=== PATIENT | female | born 1970 | race Caucasian/White ===

== ENCOUNTER 2018-01-07 21:09 | Emergency (ER) | payer SELFPAY, OTHER ==
[2018-01-07 21:59] LABS: BASO # 0.1 10^3/uL (0.0-0.2); BASO % 0.8 % (0.0-1.0); EOS # 0.1 10^3/uL (0.0-0.50); EOS % 0.5 % (0.0-3.0); HEMATOCRIT 36.7 % (36.0-47.0); IMMATURE GRANULOCYTE % 0.5 % (0-3.0); LYMPH % 28.1 % (24.0-44.0); MEAN CORPUSCULAR HEMOGLOBIN 31.5 pg (27.0-33.0); MEAN CORPUSCULAR HGB CONC 32.7 g/dl (32.0-36.5); MEAN CORPUSCULAR VOLUME 96.3 fl (80.0-96.0); MONO # 0.9 10^3/uL (0.0-0.8); MONO % 8.7 % (0.0-5.0); NEUTROPHILS # 6.6 10^3/uL (1.8-7.7); NEUTROPHILS % 61.4 % (36.0-66.0); PLATELET COUNT, AUTOMATED 326 10^3/uL (150-450); RED BLOOD COUNT 3.81 10^6/uL (4.00-5.40); RED CELL DISTRIBUTION WIDTH 12.6 % (11.5-14.5); WHITE BLOOD COUNT 10.8 10^3/uL (4.0-10.0)
[2018-01-07 22:12] LABS: ANION GAP 6 MEQ/L (8-16); BLOOD UREA NITROGEN 12 MG/DL (7-18); CALCIUM LEVEL 9.4 MG/DL (8.5-10.1); CARBON DIOXIDE LEVEL 29 MEQ/L (21-32); CHLORIDE LEVEL 107 MEQ/L (98-107); CK-MB VALUE MASS 48.8 NG/ML (<3.6); CPK CREATINE PHOSPHOKINASE 482 U/L (26-192); CREATININE FOR GFR 1.01 MG/DL (0.55-1.30); GLOMERULAR FILTRATION RATE > 60.0 (>58); GLUCOSE, FASTING 109 MG/DL (70-100); MB/CK RELATIVE INDEX 10.12 (< OR =4); POTASSIUM SERUM 3.6 MEQ/L (3.5-5.1); SODIUM LEVEL 142 MEQ/L (136-145)
[2018-01-07] MEDS: KETOROLAC 30 MG/ML VIAL (J1885) IV (22:15)
[2018-01-07 22:30] LABS: TROPONIN I 7.33 NG/ML (< 0.10)
[2018-01-07] MEDS: NITROGLYCERIN 0.4 MG SUBL TABLET SL (22:45)
[2018-01-07] MEDS ORDERED: HEPARIN 25,000 UNITS/250 ML D5W BAG (100 UNITS/ML) As Ordered (22:50)
[2018-01-07] MEDS: HEPARIN SOD (PORCINE) 5000 UNITS/ML VIAL IV (22:53)
[2018-01-07] MEDS: CLOPIDOGREL 300 MG TAB (PLAVIX) PO (22:53)
[2018-01-07] MEDS: HEPARIN DRIP 25,000 UNITS in APPROPRIATE DILUENT 1 EA IV (22:54)
[2018-01-07 23:03] LABS: INR 0.86; PROTHROMBIN TIME 11.8 SECONDS (12.4-14.5)
== END 2018-01-07 23:37 | disposition short-term general hospital (02) ==
LOC: M ED 21:09
DX: I21.4 Non-ST elevation (NSTEMI) myocardial infarction (principal); I10 Essential (primary) hypertension; I25.10 Atherosclerotic heart disease of native coronary artery without angina pectoris; E78.5 Hyperlipidemia, unspecified; Z95.5 Presence of coronary angioplasty implant and graft; Z82.49 Family history of ischemic heart disease and other diseases of the circulatory system; Z79.82 Long term (current) use of aspirin; Z79.890 Hormone replacement therapy; F17.210 Nicotine dependence, cigarettes, uncomplicated
CPT/HCPCS: J1885

== ENCOUNTER 2018-08-23 19:34 | Emergency (ER) | payer MEDICAID ==
[2018-08-23 20:56] LABS: BASO # 0.1 10^3/uL (0.0-0.2); EOS # 0.1 10^3/uL (0.0-0.50); EOS % 0.5 % (0.0-3.0); HEMATOCRIT 41.6 % (36.0-47.0); HEMOGLOBIN 13.4 g/dl (12.0-15.5); IMMATURE GRANULOCYTE % 0.5 % (0-3.0); LYMPH # 2.8 10^3/uL (1.5-4.5); LYMPH % 29.2 % (24.0-44.0); MEAN CORPUSCULAR HEMOGLOBIN 29.3 pg (27.0-33.0); MEAN CORPUSCULAR HGB CONC 32.2 g/dl (32.0-36.5); MEAN CORPUSCULAR VOLUME 90.8 fl (80.0-96.0); MONO # 0.8 10^3/uL (0.0-0.8); MONO % 7.9 % (0.0-5.0); NEUTROPHILS # 5.9 10^3/uL (1.8-7.7); NEUTROPHILS % 60.9 % (36.0-66.0); PLATELET COUNT, AUTOMATED 318 10^3/uL (150-450); RED BLOOD COUNT 4.58 10^6/uL (4.00-5.40); RED CELL DISTRIBUTION WIDTH 13.3 % (11.5-14.5); WHITE BLOOD COUNT 9.7 10^3/uL (4.0-10.0)
[2018-08-23 20:57] LABS: KETONE, URINE AUTO RFX NEGATIVE (NEGATIVE); MUCUS, URINE RFX SMALL (NEGATIVE); NITRITE, URINE AUTO RFX NEGATIVE (NEGATIVE); RBC, URINE AUTO RFX 2 /HPF (0-3); SQUAM EPITHELIAL CELL UR AURFX 4 /HPF (0-6)
[2018-08-23 20:58] LABS: LEUKOCYTE ESTERASE UR AUTO RFX TRACE (NEGATIVE); WBC, URINE AUTO RFX 14 /HPF (0-3)
[2018-08-23 21:22] LABS: ALBUMIN 3.8 GM/DL (3.2-5.2); ALKALINE PHOSPHATASE 158 U/L (45-117); ALT/SGPT 30 U/L (12-78); ANION GAP 5 MEQ/L (8-16); AST/SGOT 20 U/L (7-37); BILIRUBIN,DIRECT < 0.1 MG/DL (0.0-0.2); BILIRUBIN,TOTAL 0.3 MG/DL (0.2-1.0); BLOOD UREA NITROGEN 15 MG/DL (7-18); CALCIUM LEVEL 9.3 MG/DL (8.5-10.1); CARBON DIOXIDE LEVEL 28 MEQ/L (21-32); CHLORIDE LEVEL 106 MEQ/L (98-107); CREATININE FOR GFR 0.97 MG/DL (0.55-1.30); GLOMERULAR FILTRATION RATE > 60.0 (>58); GLUCOSE, FASTING 94 MG/DL (70-100); LIPASE 123 U/L (73-393); POTASSIUM SERUM 4.3 MEQ/L (3.5-5.1); SODIUM LEVEL 139 MEQ/L (136-145)
== END 2018-08-23 23:27 | disposition home or self-care (01) ==
LOC: M ED 19:34
DX: R10.12 Left upper quadrant pain (principal); R10.32 Left lower quadrant pain; N20.0 Calculus of kidney; N30.90 Cystitis, unspecified without hematuria; R11.0 Nausea; I10 Essential (primary) hypertension; E78.00 Pure hypercholesterolemia, unspecified; Z95.5 Presence of coronary angioplasty implant and graft; E03.9 Hypothyroidism, unspecified; Z79.899 Other long term (current) drug therapy; Z79.82 Long term (current) use of aspirin; Z79.02 Long term (current) use of antithrombotics/antiplatelets; F17.200 Nicotine dependence, unspecified, uncomplicated
CPT/HCPCS: 74176

== ENCOUNTER → 2018-11-17 | Outpatient (REF) | payer OTHER ==
[~2018-11-17] MED LIST: ASPI1TAB PO; ASPI325T25 PO; CIPR-249 PO; CLOP75TA2; LEVO175T2; LEVO75TA4 PO; LIPI20TA PO; LISI10TA4 PO; METO1TAB32; NITR4TASL SL; PROT1TAB2 PO; SIME40TA PO
[2018-11-17 13:41] LABS: HEMATOCRIT 38.9 % (36.0-47.0); HEMOGLOBIN 12.5 g/dl (12.0-15.5); MEAN CORPUSCULAR HEMOGLOBIN 29.9 pg (27.0-33.0); MEAN CORPUSCULAR HGB CONC 32.1 g/dl (32.0-36.5); MEAN CORPUSCULAR VOLUME 93.1 fl (80.0-96.0); PLATELET COUNT, AUTOMATED 245 10^3/uL (150-450); RED BLOOD COUNT 4.18 10^6/uL (4.00-5.40); WHITE BLOOD COUNT 6.2 10^3/uL (4.0-10.0)
[2018-11-17 14:09] LABS: ALBUMIN 3.5 GM/DL (3.2-5.2); ALT/SGPT 29 U/L (12-78); BILIRUBIN,TOTAL 0.2 MG/DL (0.2-1.0); BLOOD UREA NITROGEN 20 MG/DL (7-18); CALCIUM LEVEL 8.6 MG/DL (8.5-10.1); CARBON DIOXIDE LEVEL 23 MEQ/L (21-32); CHLORIDE LEVEL 111 MEQ/L (98-107); CHOLESTEROL LEVEL 183 MG/DL (<200); CHOLESTEROL RISK RATIO 5.903 (<5); CREATININE FOR GFR 0.86 MG/DL (0.55-1.30); GLOMERULAR FILTRATION RATE > 60.0 (>58); GLUCOSE, FASTING 95 MG/DL (70-100); HDL CHOLESTEROL 31 MG/DL (>40); LDL CHOLESTEROL 131 MG/DL (<100); NON-HDL-C 152 MG/DL; POTASSIUM SERUM 4.5 MEQ/L (3.5-5.1); SODIUM LEVEL 141 MEQ/L (136-145); TOTAL PROTEIN 7.3 GM/DL (6.4-8.2); TRIGLYCERIDES LEVEL 107 MG/DL (<150)
== END ==
LOC: M LABDRAW1 12:35
PROVIDERS: ATTEND Physician Assistant
DX: I25.10 Atherosclerotic heart disease of native coronary artery without angina pectoris (principal)

== ENCOUNTER 2019-01-31 14:22 | Emergency (ER) | payer OTHER, SELFPAY ==
[~2019-01-31] VITALS: Ht 170.2 cm; Wt 123.7 kg
[~2019-01-31 14:22] MED LIST changes: +ASPI-255 PO; -ASPI1TAB PO; -ASPI325T25 PO; +ASPI81TA26 PO
[2019-01-31 14:23] VITALS: BP 149/96
[2019-01-31] MEDS ORDERED: ATOR80TA59 (14:32)
[2019-01-31] MEDS ORDERED: IBUP-1022 PO (15:08)
[2019-01-31] MEDS ORDERED: CYCL10TA PO (15:08)
--- NOTE | 2019-01-31 20:36 | ECGEPIP ---
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
== END 2019-01-31 15:20 | disposition home or self-care (01) ==
LOC: M ED 14:22
DX: M54.12 Radiculopathy, cervical region (principal); I10 Essential (primary) hypertension; E07.9 Disorder of thyroid, unspecified; E78.5 Hyperlipidemia, unspecified; Z79.899 Other long term (current) drug therapy; Z79.890 Hormone replacement therapy; F17.210 Nicotine dependence, cigarettes, uncomplicated

== ENCOUNTER 2019-02-05 20:58 | Emergency (ER) | payer MEDICAID, SELFPAY ==
[~2019-02-05] VITALS: Ht 170.2 cm; Wt 109.1 kg
[~2019-02-05 20:58] MED LIST changes: +ATOR80TA59; +CYCL10TA PO; +IBUP-1022 PO
[2019-02-05] MEDS ORDERED: ROBA500T PO (22:44)
[2019-02-05 22:50] VITALS: BP 154/96
== END 2019-02-05 22:59 | disposition home or self-care (01) ==
LOC: M ED 20:58
DX: M62.830 Muscle spasm of back (principal)

== ENCOUNTER → 2019-02-08 | Outpatient (REF) | payer MEDICAID ==
[~2019-02-08] MED LIST changes: +ROBA500T PO
[2019-02-08 19:37] LABS: ALBUMIN 3.8 GM/DL (3.2-5.2); BILIRUBIN,TOTAL 0.5 MG/DL (0.2-1.0); CALCIUM LEVEL 8.5 MG/DL (8.5-10.1); CREATININE FOR GFR 1.35 MG/DL (0.55-1.30); FREE T4 0.15 NG/DL (0.76-1.46); GLOMERULAR FILTRATION RATE 44.9 (>58); POTASSIUM SERUM 3.7 MEQ/L (3.5-5.1); THYROID STIMULATING HORMONE 98.3 uIU/ML (0.358-3.740); TOTAL PROTEIN 7.9 GM/DL (6.4-8.2)
== END ==
LOC: M LAB REF 18:41
PROVIDERS: ATTEND Family Medicine Addiction Medicine
DX: R74.8 Abnormal levels of other serum enzymes (principal); E03.9 Hypothyroidism, unspecified

== ENCOUNTER 2019-02-22 10:07 | Outpatient (RCR) | payer MEDICAID | END 2019-02-23 | LOC: M PT 10:07 | PROVIDERS: ATTEND Physician Assistant | DX: M25.552 Pain in left hip (principal) ==

== ENCOUNTER 2019-03-02 17:07 | Emergency (ER) | payer MEDICAID ==
[~2019-03-02] VITALS: Ht 170.2 cm; Wt 120.2 kg
[2019-03-02] MEDS ORDERED: MELO15TA28 (17:24)
[2019-03-02] MEDS ORDERED: FUROSEMIDE 20 MG/2 ML VIAL (J1940) IV ONE (19:00)
[2019-03-02 19:06] LABS: BASO # 0.1 10^3/uL (0.0-0.2); BASO % 0.9 % (0.0-1.0); EOS # 0.1 10^3/uL (0.0-0.50); EOS % 0.7 % (0.0-3.0); HEMATOCRIT 36.5 % (36.0-47.0); LYMPH # 2.5 10^3/uL (1.5-4.5); LYMPH % 26.1 % (24.0-44.0); MEAN CORPUSCULAR HEMOGLOBIN 31.4 pg (27.0-33.0); MEAN CORPUSCULAR HGB CONC 32.9 g/dl (32.0-36.5); MEAN CORPUSCULAR VOLUME 95.5 fl (80.0-96.0); MONO # 0.9 10^3/uL (0.0-0.8); MONO % 8.9 % (0.0-5.0); NEUTROPHILS % 62.9 % (36.0-66.0); PLATELET COUNT, AUTOMATED 241 10^3/uL (150-450); RED BLOOD COUNT 3.82 10^6/uL (4.00-5.40); VENOUS BASE EXCESS 0.2 (-2.0-2.0); VENOUS HCO3 24.8 MEQ/L (23.0-27.0); VENOUS O2 SATURATION 96.5 % (60.0-80.0); VENOUS PARTIAL PRESSURE CO2 40.1 mmHg (38.0-50.0); VENOUS PARTIAL PRESSURE O2 88.6 mmHg (30.0-50.0); VENOUS PH 7.409 UNITS (7.330-7.430); VENOUS STANDARD HCO3 24.6 MEQ/L; WHITE BLOOD COUNT 9.6 10^3/uL (4.0-10.0)
--- NOTE | 2019-03-02 19:23 | REP ---
Chest one-view HISTORY: Cough Comparison: 12/28/2017 The lungs are clear. The heart is normal in size. The pulmonary vasculature is normal in appearance. Impression: No acute disease. Electronically Signed by Bj Fernandez MD 03/02/2019 07:14 P
[2019-03-02 19:35] LABS: INR 1.01; PROTHROMBIN TIME 13.4 SECONDS (12.1-14.4)
[2019-03-02 20:19] LABS: ALBUMIN 3.8 GM/DL (3.2-5.2); ALT/SGPT 31 U/L (12-78); BILIRUBIN,DIRECT < 0.1 MG/DL (0.0-0.2); BILIRUBIN,TOTAL 0.4 MG/DL (0.2-1.0); BLOOD UREA NITROGEN 21 MG/DL (7-18); CALCIUM LEVEL 8.8 MG/DL (8.5-10.1); CARBON DIOXIDE LEVEL 25 MEQ/L (21-32); CHLORIDE LEVEL 108 MEQ/L (98-107); CK-MB VALUE MASS 2.5 NG/ML (<3.6); CPK CREATINE PHOSPHOKINASE 208 U/L (26-192); GLOMERULAR FILTRATION RATE > 60.0 (>58); GLUCOSE, FASTING 83 MG/DL (70-100); NT-PRO BNP 87 PG/ML (<125); POTASSIUM SERUM 4.4 MEQ/L (3.5-5.1); SODIUM LEVEL 140 MEQ/L (136-145); TOTAL PROTEIN 8.3 GM/DL (6.4-8.2); TROPONIN I < 0.02 NG/ML (< 0.10)
[2019-03-02] MEDS ORDERED: PROAAER10 INH (21:06)
[2019-03-02 21:53] VITALS: BP 135/84
--- NOTE | 2019-03-03 09:08 | ECGEPIP ---
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
== END 2019-03-02 21:55 | disposition home or self-care (01) ==
LOC: M ED 17:07
DX: R60.0 Localized edema (principal); R06.02 Shortness of breath; I10 Essential (primary) hypertension; Z79.899 Other long term (current) drug therapy; Z79.82 Long term (current) use of aspirin
CPT/HCPCS: 71045; 80048; 80076; 82550; 82553; 82803; 83605; 83880; 84443; 85025; 85610; 87040; 93005; 93041; 96374; 99284; J1940

== ENCOUNTER 2019-03-21 07:43 | Outpatient (RCR) | payer MEDICAID ==
[~2019-03-21 07:43] MED LIST changes: +MELO15TA28; +PROAAER10 INH
== END 2019-03-25 ==
LOC: M PT 07:43
PROVIDERS: ATTEND Physician Assistant
DX: M25.552 Pain in left hip (principal)

== ENCOUNTER 2019-04-24 07:00 | Outpatient (RCR) | payer MEDICAID, OTHER | END 2019-04-25 | LOC: M PT 07:00 | PROVIDERS: ATTEND Physician Assistant | DX: Z47.89 Encounter for other orthopedic aftercare (principal); M54.2 Cervicalgia; M25.552 Pain in left hip; M53.3 Sacrococcygeal disorders, not elsewhere classified ==

== ENCOUNTER → 2019-05-22 | Outpatient (REF) | payer OTHER ==
[2019-05-22 18:03] LABS: FREE T4 1.7 NG/DL (0.76-1.46); THYROID STIMULATING HORMONE 0.232 uIU/ML (0.358-3.740)
== END ==
LOC: M LAB REF 17:06
PROVIDERS: ATTEND Nurse Practitioner Family
DX: E03.9 Hypothyroidism, unspecified (principal)

== ENCOUNTER → 2019-05-29 | Outpatient (REF) | payer OTHER ==
[2019-05-29 13:52] LABS: BLOOD UREA NITROGEN 20 MG/DL (7-18); CALCIUM LEVEL 8.9 MG/DL (8.5-10.1); CARBON DIOXIDE LEVEL 25 MEQ/L (21-32); CHLORIDE LEVEL 110 MEQ/L (98-107); CREATININE FOR GFR 0.77 MG/DL (0.55-1.30); GLOMERULAR FILTRATION RATE > 60.0 (>58); GLUCOSE, FASTING 79 MG/DL (70-100); POTASSIUM SERUM 4.3 MEQ/L (3.5-5.1); SODIUM LEVEL 140 MEQ/L (136-145)
== END ==
LOC: M LABDRAW1 12:06
PROVIDERS: ATTEND Physician Assistant
DX: I10 Essential (primary) hypertension (principal)

== ENCOUNTER → 2019-06-25 | Outpatient (REF) | payer OTHER, MEDICAID ==
[2019-06-25 13:26] LABS: ALBUMIN 3.4 GM/DL (3.2-5.2); ALT/SGPT 33 U/L (12-78); BILIRUBIN,TOTAL 0.3 MG/DL (0.2-1.0); BLOOD UREA NITROGEN 17 MG/DL (7-18); CALCIUM LEVEL 8.7 MG/DL (8.5-10.1); CARBON DIOXIDE LEVEL 25 MEQ/L (21-32); CHLORIDE LEVEL 111 MEQ/L (98-107); CHOLESTEROL LEVEL 140 MG/DL (<200); CHOLESTEROL RISK RATIO 4.242 (<5); CREATININE FOR GFR 0.79 MG/DL (0.55-1.30); FREE T4 1.25 NG/DL (0.76-1.46); GLOMERULAR FILTRATION RATE > 60.0 (>58); GLUCOSE, FASTING 95 MG/DL (70-100); HDL CHOLESTEROL 33 MG/DL (>40); LDL CHOLESTEROL 74 MG/DL (<100); NON-HDL-C 107 MG/DL; POTASSIUM SERUM 4.2 MEQ/L (3.5-5.1); SODIUM LEVEL 143 MEQ/L (136-145); THYROID STIMULATING HORMONE 0.075 uIU/ML (0.358-3.740); TOTAL PROTEIN 7.4 GM/DL (6.4-8.2); TRIGLYCERIDES LEVEL 163 MG/DL (<150)
[2019-06-25 14:19] LABS: HEMOGLOBIN A1c 5.4 %
== END ==
LOC: M LAB REF 12:31
PROVIDERS: ATTEND Nurse Practitioner Family
DX: Z00.01 Encounter for general adult medical examination with abnormal findings (principal)

== ENCOUNTER → 2019-10-09 | Outpatient (CLI) | payer OTHER ==
--- NOTE | 2019-10-09 13:20 | REPMRS ---
Patient History The patient states she had a clinical breast exam in September 2019. Family history of lymphoma in mother. Taking unspecified hormones for 12 years. Digital Mammo Screening Bilat: October 09, 2019 - Exam #: [id number] Bilateral CC and MLO view(s) were taken. Technologist: Jeanette Pineda, Technologist No prior studies available for comparison. FINDINGS: There are scattered fibroglandular densities. There is no evidence of dominant mass, architectural distortion, or grouped microcalcification typical of malignancy. 3-D tomosynthesis shows no additional findings. Assessment: BI-RADS/ACR category 1 mammogram. Negative Mammogram. Recommendation Routine screening mammogram of both breasts in 1 year (for women over age 40). This patient's Lifetime Breast Cancer RIsk is estimated at 8.3 %. This mammogram was interpreted with the aid of an FDA-approved computer-aided dectection system. Electronically Signed By: Serafin Pritchard MD 10/09/19 [id number]
== END ==
LOC: M RAD 12:34
PROVIDERS: ATTEND Physician Assistant
DX: Z12.31 Encounter for screening mammogram for malignant neoplasm of breast (principal)

== ENCOUNTER → 2019-11-12 | Outpatient (REF) | payer OTHER, MEDICAID ==
[2019-11-12 14:34] LABS: FREE T4 1.61 NG/DL (0.76-1.46); THYROID STIMULATING HORMONE 0.276 uIU/ML (0.358-3.740)
== END ==
LOC: M LAB REF 13:22
PROVIDERS: ATTEND Physician Assistant
DX: E03.9 Hypothyroidism, unspecified (principal)

== ENCOUNTER → 2019-11-20 | Outpatient (REF) | payer OTHER, MEDICAID ==
[2019-11-20 10:10] LABS: HEMATOCRIT 35.9 % (36.0-47.0); HEMOGLOBIN 11.6 g/dl (12.0-15.5); MEAN CORPUSCULAR HEMOGLOBIN 30.1 pg (27.0-33.0); MEAN CORPUSCULAR HGB CONC 32.3 g/dl (32.0-36.5); PLATELET COUNT, AUTOMATED 266 10^3/uL (150-450); RED BLOOD COUNT 3.86 10^6/uL (4.00-5.40)
[2019-11-20 10:43] LABS: BLOOD UREA NITROGEN 18 MG/DL (7-18); CALCIUM LEVEL 8.6 MG/DL (8.5-10.1); CARBON DIOXIDE LEVEL 24 MEQ/L (21-32); CHLORIDE LEVEL 111 MEQ/L (98-107); CHOLESTEROL LEVEL 194 MG/DL (<200); CHOLESTEROL RISK RATIO 7.185 (<5); CREATININE FOR GFR 0.72 MG/DL (0.55-1.30); GLOMERULAR FILTRATION RATE > 60.0 (>58); GLUCOSE, FASTING 100 MG/DL (70-100); HDL CHOLESTEROL 27 MG/DL (>40); LDL CHOLESTEROL 125 MG/DL (<100); NON-HDL-C 167 MG/DL; POTASSIUM SERUM 4.2 MEQ/L (3.5-5.1); SODIUM LEVEL 141 MEQ/L (136-145); TRIGLYCERIDES LEVEL 210 MG/DL (<150)
== END ==
LOC: M LABDRAW1 07:34
PROVIDERS: ATTEND Physician Assistant
DX: I25.10 Atherosclerotic heart disease of native coronary artery without angina pectoris (principal)

== ENCOUNTER → 2020-02-20 | Outpatient (REF) | payer OTHER, MEDICAID ==
[~2020-02-20] MED LIST changes: +CYCL-707 PO; -CYCL10TA PO
[2020-02-20 13:21] LABS: FREE T4 1.29 NG/DL (0.76-1.46); THYROID STIMULATING HORMONE 0.038 uIU/ML (0.358-3.740)
== END ==
LOC: M LAB REF 12:21
PROVIDERS: ATTEND Physician Assistant
DX: E03.9 Hypothyroidism, unspecified (principal)

== ENCOUNTER → 2020-06-23 | Outpatient (REF) | payer OTHER, MEDICAID ==
[2020-06-23 13:26] LABS: FREE T4 1.13 NG/DL (0.76-1.46); THYROID STIMULATING HORMONE 0.5 uIU/ML (0.358-3.740)
== END ==
LOC: M LAB REF 12:15
PROVIDERS: ATTEND Physician Assistant
DX: E03.9 Hypothyroidism, unspecified (principal)

== ENCOUNTER → 2021-01-14 | Outpatient (REF) | payer OTHER, MEDICAID ==
[~2021-01-14] MED LIST changes: +LISI10TA22 PO; -LISI10TA4 PO; -SIME40TA PO; +SIME80CH6 PO
[2021-01-14 12:24] LABS: BASO # 0.1 10^3/uL (0.0-0.2); BASO % 1.5 % (0.0-1.0); EOS # 0.1 10^3/uL (0.0-0.5); EOS % 0.9 % (0.0-3.0); HEMATOCRIT 38.8 % (36.0-47.0); HEMOGLOBIN 12.3 g/dl (12.0-15.5); MEAN CORPUSCULAR HEMOGLOBIN 28.9 pg (27.0-33.0); MEAN CORPUSCULAR HGB CONC 31.7 g/dl (32.0-36.5); MEAN CORPUSCULAR VOLUME 91.1 fl (80.0-96.0); MONO # 0.7 10^3/uL (0.0-0.8); MONO % 7.8 % (2.0-8.0); NEUTROPHILS # 5.8 10^3/uL (1.5-8.5); NEUTROPHILS % 65.8 % (36.0-66.0); PLATELET COUNT, AUTOMATED 237 10^3/uL (150-450); RED BLOOD COUNT 4.26 10^6/uL (4.00-5.40); WHITE BLOOD COUNT 8.7 10^3/uL (4.0-10.0)
[2021-01-14 12:29] LABS: APPEARANCE, URINE HAZY (CLEAR); BACTERIA, URINE AUTO NEGATIVE (NEGATIVE); BILIRUBIN, URINE AUTO NEGATIVE (NEGATIVE); BLOOD, URINE BLOOD NEGATIVE (NEGATIVE); COLOR, URINE YELLOW (YELLOW); GLUCOSE, URINE (UA) AUTO NEGATIVE (NEGATIVE); KETONE, URINE AUTO NEGATIVE (NEGATIVE); LEUKOCYTE ESTERASE, URINE AUTO NEGATIVE (NEGATIVE); NITRITE, URINE AUTO NEGATIVE (NEGATIVE); PROTEIN, URINE AUTO NEGATIVE (NEGATIVE); RBC, URINE AUTO 0 /HPF (0-3); SQUAMOUS EPITHELIAL CELL UR AU 6 /HPF (0-6); UROBILINOGEN, URINE AUTO 0.2 mg/dL (0.0-2.0); WBC, URINE AUTO 1 /HPF (0-3)
[2021-01-14 13:03] LABS: ALBUMIN 3.7 GM/DL (3.2-5.2); ALT/SGPT 37 U/L (12-78); BILIRUBIN,TOTAL 0.3 MG/DL (0.2-1.0); BLOOD UREA NITROGEN 16 MG/DL (7-18); CALCIUM LEVEL 9.3 MG/DL (8.5-10.1); CARBON DIOXIDE LEVEL 27 MEQ/L (21-32); CHLORIDE LEVEL 106 MEQ/L (98-107); CHOLESTEROL LEVEL 312 MG/DL (<200); CHOLESTEROL RISK RATIO 9.176 (<5); CREATININE FOR GFR 0.95 MG/DL (0.55-1.30); FREE T4 0.52 NG/DL (0.76-1.46); GLOMERULAR FILTRATION RATE > 60.0 (>58); GLUCOSE, FASTING 92 MG/DL (70-100); HDL CHOLESTEROL 34 MG/DL (>40); LDL CHOLESTEROL 221 MG/DL (<100); NON-HDL-C 278 MG/DL; POTASSIUM SERUM 4.1 MEQ/L (3.5-5.1); SODIUM LEVEL 140 MEQ/L (136-145); TOTAL 25(OH) VITAMIN D 15.4 NG/ML (30.0-100.0); TOTAL PROTEIN 7.6 GM/DL (6.4-8.2); TRIGLYCERIDES LEVEL 285 MG/DL (<150)
[2021-01-14 14:02] LABS: HEMOGLOBIN A1c 5.8 %
== END ==
LOC: M LAB REF 11:24
PROVIDERS: ATTEND Nurse Practitioner Family
DX: R10.9 Unspecified abdominal pain (principal); R19.7 Diarrhea, unspecified; R11.2 Nausea with vomiting, unspecified; R14.0 Abdominal distension (gaseous)

== ENCOUNTER → 2021-02-11 | Outpatient (CLI) | payer OTHER ==
--- NOTE | 2021-02-11 09:39 | REP ---
INDICATION: ABD PAIN DISTENTION NAUSEA VOMITING DIARRHEA COMPARISON: CT dated 08/23/2018 TECHNIQUE: Real time B-mode montiel scale ultrasound examination using curved array transducer. FINDINGS: Liver, spleen, and pancreas are normal in contour, size, echogenicity, and overall appearance. No focal hepatic, splenic or pancreatic lesions are identified. Gallbladder is normal without gallstones, wall thickening, or pericholecystic fluid. No biliary ductal dilatation is appreciated and the common bile duct measures 3.5 mm diameter. The bilateral kidneys are normal in reniform shape without hydronephrosis or obvious abnormality. Right kidney measures 10.2 x 4.7 x 4.3 cm. Left kidney measures 11.7 x 4.7 x 5.3 cm. Abdominal aorta is normal and measures 2.1 cm maximal diameter. No obvious ascites. IMPRESSION: No obvious abnormality appreciated. Limited by body habitus and associated technical factors. If symptoms persist consider CT of the abdomen and pelvis for further investigation. <Electronically signed by Dread Lopez > 02/11/21 0935
== END ==
LOC: M RAD 08:59
PROVIDERS: ATTEND Nurse Practitioner Family
DX: R14.0 Abdominal distension (gaseous) (principal); R19.7 Diarrhea, unspecified; R11.2 Nausea with vomiting, unspecified; R10.9 Unspecified abdominal pain

== ENCOUNTER → 2021-03-03 | Outpatient (REF) | payer OTHER ==
[2021-03-03 16:46] LABS: BASO # 0.1 10^3/uL (0.0-0.2); BASO % 1.1 % (0.0-1.0); EOS % 0.6 % (0.0-3.0); HEMATOCRIT 39.9 % (36.0-47.0); HEMOGLOBIN 12.5 g/dl (12.0-15.5); LYMPH % 27.5 % (24.0-44.0); MEAN CORPUSCULAR HEMOGLOBIN 28.6 pg (27.0-33.0); MEAN CORPUSCULAR HGB CONC 31.3 g/dl (32.0-36.5); MEAN CORPUSCULAR VOLUME 91.3 fl (80.0-96.0); MONO # 0.6 10^3/uL (0.0-0.8); MONO % 8.3 % (2.0-8.0); NEUTROPHILS # 4.5 10^3/uL (1.5-8.5); NEUTROPHILS % 61.9 % (36.0-66.0); PLATELET COUNT, AUTOMATED 288 10^3/uL (150-450); RED BLOOD COUNT 4.37 10^6/uL (4.00-5.40); WHITE BLOOD COUNT 7.2 10^3/uL (4.0-10.0)
[2021-03-03 17:39] LABS: ALBUMIN 3.6 GM/DL (3.2-5.2); ALT/SGPT 36 U/L (12-78); BILIRUBIN,TOTAL 0.3 MG/DL (0.2-1.0); BLOOD UREA NITROGEN 12 MG/DL (7-18); CALCIUM LEVEL 9.3 MG/DL (8.5-10.1); CARBON DIOXIDE LEVEL 27 MEQ/L (21-32); CHLORIDE LEVEL 106 MEQ/L (98-107); CHOLESTEROL LEVEL 231 MG/DL (<200); CHOLESTEROL RISK RATIO 7.451 (<5); CREATININE FOR GFR 0.74 MG/DL (0.55-1.30); FREE T4 1.27 NG/DL (0.76-1.46); GLOMERULAR FILTRATION RATE > 60.0 (>58); GLUCOSE, FASTING 79 MG/DL (70-100); HDL CHOLESTEROL 31 MG/DL (>40); LDL CHOLESTEROL 137 MG/DL (<100); NON-HDL-C 200 MG/DL; POTASSIUM SERUM 4.7 MEQ/L (3.5-5.1); SODIUM LEVEL 141 MEQ/L (136-145); THYROID PEROXIDASE ANTIBODY 507.7 U/ML (<60.0); THYROID STIMULATING HORMONE 0.562 uIU/ML (0.358-3.740); TOTAL PROTEIN 7.6 GM/DL (6.4-8.2); TOTAL T3 144.6 NG/DL (60.0-181.0); TRIGLYCERIDES LEVEL 314 MG/DL (<150)
== END ==
LOC: M LAB REF 16:16
PROVIDERS: ATTEND Nurse Practitioner Family
DX: E03.9 Hypothyroidism, unspecified (principal); E78.2 Mixed hyperlipidemia

== ENCOUNTER → 2021-03-11 | Outpatient (REF) | payer OTHER | LOC: M LAB REF 16:29 | PROVIDERS: ATTEND Nurse Practitioner Family | DX: Z12.4 Encounter for screening for malignant neoplasm of cervix (principal) ==

== ENCOUNTER → 2021-04-01 | Outpatient (CLI) | payer OTHER ==
[~2021-04-01] MED LIST changes: +GABA600T4 PO; +SERT-141 PO
== END ==
LOC: M PLALAB 10:20
PROVIDERS: ATTEND Internal Medicine Gastroenterology
DX: R19.7 Diarrhea, unspecified (principal)

== ENCOUNTER → 2021-04-06 | Outpatient (CLI) | payer OTHER ==
[~2021-04-06] MED LIST changes: +GASTROGRAFIN SOLUTION 30ML (Q9963) As Ordered ONE; +ISOVUE-370 76% 100ML VIAL As Ordered ONE
== END ==
LOC: M RAD 14:53
PROVIDERS: ATTEND Internal Medicine Gastroenterology
DX: K57.30 Diverticulosis of large intestine without perforation or abscess without bleeding (principal)
CPT/HCPCS: 74177; Q9963; Q9967

== ENCOUNTER → 2021-04-30 | Outpatient (CLI) | payer OTHER ==
[~2021-04-30] MED LIST changes: -GABA600T4 PO; -GASTROGRAFIN SOLUTION 30ML (Q9963) As Ordered ONE; -ISOVUE-370 76% 100ML VIAL As Ordered ONE; -SERT-141 PO
[2021-04-30 18:14] LABS: BASO # 0.1 10^3/uL (0.0-0.2); BASO % 0.8 % (0.0-1.0); EOS % 0.5 % (0.0-3.0); HEMATOCRIT 39.8 % (36.0-47.0); HEMOGLOBIN 12.6 g/dl (12.0-15.5); LYMPH # 2.2 10^3/uL (1.5-5.0); LYMPH % 24.6 % (24.0-44.0); MEAN CORPUSCULAR HEMOGLOBIN 28.8 pg (27.0-33.0); MEAN CORPUSCULAR HGB CONC 31.7 g/dl (32.0-36.5); MEAN CORPUSCULAR VOLUME 90.9 fl (80.0-96.0); MONO # 0.8 10^3/uL (0.0-0.8); MONO % 8.7 % (2.0-8.0); NEUTROPHILS # 5.7 10^3/uL (1.5-8.5); NEUTROPHILS % 65.1 % (36.0-66.0); PLATELET COUNT, AUTOMATED 283 10^3/uL (150-450); RED BLOOD COUNT 4.38 10^6/uL (4.00-5.40); WHITE BLOOD COUNT 8.8 10^3/uL (4.0-10.0)
[2021-04-30 18:24] LABS: INR 0.91; PROTHROMBIN TIME 12.7 SECONDS (12.7-14.5)
[2021-04-30 18:41] LABS: ALBUMIN 3.5 GM/DL (3.2-5.2); ALT/SGPT 34 U/L (12-78); BILIRUBIN,DIRECT < 0.1 MG/DL (0.0-0.2); BILIRUBIN,TOTAL 0.3 MG/DL (0.2-1.0); IRON (FE) 50 UG/DL (50-170); PERCENT SATURATION 13.9 % (13.2-45.0); TOTAL IRON BINDING CAPACITY 360 UG/DL (250-450); TOTAL PROTEIN 7.4 GM/DL (6.4-8.2)
[2021-04-30 19:04] LABS: HEPATITIS B SURFACE ANTIGEN NEGATIVE (NEGATIVE)
[2021-04-30 19:30] LABS: HEPATITIS C VIRUS ABY INDEX 0.2 INDEX (<0.8)
[2021-04-30 19:31] LABS: HEPATITIS B CORE ANTIBODY IGM NEGATIVE (NEGATIVE)
[2021-04-30 19:33] LABS: HEPATITIS A ANTIBODY IGM NEGATIVE (NEGATIVE)
== END ==
LOC: M LAB 16:38
PROVIDERS: ATTEND Internal Medicine Gastroenterology
DX: R93.3 Abnormal findings on diagnostic imaging of other parts of digestive tract (principal); K74.60 Unspecified cirrhosis of liver

== ENCOUNTER → 2021-06-16 | Outpatient (REF) | payer OTHER | LOC: M SFHCWAGY 19:06 | PROVIDERS: ATTEND Obstetrics & Gynecology | DX: N85.2 Hypertrophy of uterus (principal) ==

== ENCOUNTER → 2021-07-08 | Outpatient (CLI) | payer OTHER | LOC: M LABSMTC 11:17 | PROVIDERS: ATTEND Anesthesiology | DX: Z01.818 Encounter for other preprocedural examination (principal); Z11.52 Encounter for screening for COVID-19 ==

== ENCOUNTER → 2021-07-10 | Outpatient (CLI) | payer OTHER ==
[~2021-07-10] MED LIST changes: +GABA600T4 PO; +SERT-141 PO
--- NOTE | 2021-07-10 12:23 | REP ---
INDICATION: ENLARGED UTERUS. COMPARISON: None. TECHNIQUE: Transvaginal and transvesical imaging FINDINGS: The uterus measures 9.3 x 5.7 x 6.5 cm. The uterine parenchyma is heterogenous and echo pattern. In the uterine body on the right there is a hypoechoic nodule which measures 2.5 cm. Within the endometrial cavity there appears to be an 8 mm size nodule. The maximal thickness of the endometrial echo complex is 8 mm. The right ovary measures 3 x 1.6 x 2.3 cm and is within normal limits with an RI 0.56 Left ovary measures 1.7 x 1.7 x 1.2 cm and is within normal limits with an RI 0.65 Urinary bladder measures 8 x 6 x 9 cm. IMPRESSION: 1. Heterogenous uterine echo pattern with evidence of fibroid change as described above. 2. Possible polyp in the endometrial cavity. Follow-up is recommended. Consider pelvic MRI if clinically relevant. <Electronically signed by Chito Barrett > 07/10/21 [id number]
== END ==
LOC: M WHC 11:34
PROVIDERS: ATTEND Obstetrics & Gynecology
DX: N88.2 Stricture and stenosis of cervix uteri (principal)

== ENCOUNTER 2021-07-13 11:34 | Day surgery (SDC) | payer OTHER ==
[~2021-07-13] VITALS: Ht 172.7 cm; Wt 112.5 kg
[~2021-07-13 11:34] MED LIST changes: -GABA600T4 PO; +NS 1,000 ML IV ONE; -SERT-141 PO
--- OUTSIDE RECORDS SUMMARY | 2021-07-13 11:38 | CCD ---
Author Author [facility] Organization [facility] Address Unknown Phone Unavailable Care Team Providers Care Piper Installer Name Role Phone Rakel Burgos Unavailable PROBLEMS Type Condition ICD9-CM Code [id number] Code Onset Dates Condition S tatus W/U Status Risk SNOMED Code Notes Problem Abnormal uterine and vaginal bleeding, unspecified N93.9 Active confirmed [id number] ALLERGIES No Known Allergies ENCOUNTERS from 1970 to 2021-07-01 Encounter Location Date Provider Diagnosis [facility] [address] [place] [address] [place] [address] May, Rakel Burgos Enlarged uterus N85. 2 and Abnormal uterine and vaginal bleeding, unspecified N93.9 IMMUNIZATIONS No Information SOCIAL HISTORY Tobacco Use: Social History Observation Description Date Details (start date - stop date) Former Smoker Sex Assigned At : Social History Observation Description Sex Assigned At Unknown Tobacco Use: Question Answer Notes Are you a: former smoker How long has it been since you last smoked? 1-5 years Smoker for 20 years REASON FOR REFERRAL No Information VITAL SIGNS Weight 256.8 lbs May, Weight-kg 116.48 kg May, Height 67 in May, BMI 40.22 kg/m2 May, Blood pressure systolic 118 mm Hg May, Blood pressure diastolic 76 mm Hg May, MEDICATIONS Medication SIG (Take, Route, Frequency, Duration) Notes Start Da te End Date Status Dicyclomine HCl 10 MG 1-2 capsules Orally every 6 hours as needed for abdominal cramping Active Aspirin Adult Low Dose 81 MG 1 tablet Orally Once a day Active Levothyroxine Sodium 150 MCG 1 tablet in the morning o n an empty stomach Orally Once a day Active Sertraline HCl 100 MG 1 tablet Orally Once a day Active Atorvastatin Calcium 40 MG 1 tablet Orally Once a day Active Gabapentin 600 MG 1 tablet Orally Three times a day Active PROCEDURES No Information RESULTS Component Value Reference Range Pathology Request For Service Reviewed date:06/19/2021 13:08:33 Interpretation: Performing Lab:Formerly [facility], [facility], [facility] [address] [facility] [id number] , ,[place] [id number] GENITOURINARY REASON FOR VISIT ENLARGED UTERUS MEDICAL (GENERAL) HISTORY Type Description Date Medical History Hypothyroidism Medical History Mixed hyperlipidemia/High Cholesterol Medical History Secondary Hypertension Medical History Atherosclerosis/Coronary Art juan Disease, following with Dr. Costa Medical History Depressive Disorder Medical History Generalized Anxiety Disorder Medical History Obesity Medical History 2 Myocardial Infarctions Medical History Severe LAD stenosis requiring stent plac ement Medical History Prediabetes Medical History Arthritis Medical History Kidney Stones Surgical History Surgical History Right Shoulder 2009 Surgical History Tubal Ligation Surgical History Teeth Extraction Surgical History Stent placement/cardiac catheter [facility] 04/2015 Hospitalization History child Goals Section No Information Health Concerns No Information MEDICAL EQUIPMENT No Information MENTAL STATUS No Information FUNCTIONAL STATUS No Information ASSESSMENTS Encounter Date Diagnosis Assessment Notes Treatment Notes Treatm ent Clinical Notes May, Enlarged uterus (ICD-10 - N85.2) May, Abnormal uterine and vaginal bleeding, unspecified (ICD-10 - N93.9) PLAN OF TREATMENT Treatment Notes Test Name Order Date [facility] NON-OB COMPLETE 2021-06-16 Next Appt Details 3-4 weeks Reason:f/u biopsy and ultrasou nd Provider Name:Rakel Burgos, 2021-06-26 9 02:40:00 PM, [address] [facility], , [place], [address], Follow Up:3-4 weeksf/u biopsy and ultrasound Insurance Providers Payer Name Payer Address Payer Phone Insured Name Patient Relati onship to Insured Coverage Start Date Coverage End Date SELF PAY LESLIE STEWART self
--- OUTSIDE RECORDS SUMMARY | 2021-07-13 11:38 | CCD ---
Author Organization Unknown Address [address] [place] [id number] Phone [phone] Care Team Providers Care Piping Manager Name Role Phone Ree Arteaga Unavailable Unavailable Allergies Code Code System Name Reaction Severity Status Onset NKDA Medications Name Status Start Date Stop Date amoxicillin 500 mg capsule TAKE ONE CAPSULE BY MOUTH THREE TIMES A DAY Completed 01/07/2021 atorvastatin 40 mg tablet TAKE ONE TABLET BY MOUTH ONCE DAILY Active Not available atorvastatin 80 mg tablet Completed 2020 chlorhexidine gluconate 0.12 % mouthwash Completed 01/07/2021 clindamycin HCl 300 mg capsule TAKE ONE CAPSULE BY MOUTH THREE TIMES A DAY FOR 10 DAYS Completed 01/07/2021 clopidogrel 75 mg tablet TAKE ONE TABLET BY MOUTH EVERY DAY Completed 12/25 dicyclomine 10 mg capsule TAKE 1 2 CAPSULES BY MOUTH EVERY 6 HOURS NEEDED FOR ABDOMINAL CRAMPING Active Not available fluconazole 150 mg tablet Completed 2020 gabapentin 600 mg tablet Active Not nando ilable hydrocodone 5 mg-acetaminophen 325 mg tablet Completed 01/07/2021 levothyroxine 150 mcg tablet TAKE ONE TABLET BY MOUTH EVERY MORNING ON AN EMPTY STOMACH Active Not available levothyroxine 175 mcg tablet TAKE 1 TABLET BY MOUTH EVERY MORNING Completed levothyroxine 200 mcg tablet Completed lisinopril 20 mg tablet TAKE ONE TABLET BY MOUTH EVERY EVENING Completed 01/07/2021 Low Dose Aspirin 81 mg tablet,delayed re lease Take 1 tablet every day by oral route. Active Not available metoprolol succinate ER 25 mg tablet,ext ended release 24 hr TAKE ONE TABLET BY MOUTH EVERY DAY Completed 01/07/2021 06/0 04/2021 Milk of Magnesia 400 mg/5 mL oral suspen joana TAKE 45ML BY MOUTH 1 2 DAYS BEFORE COLONOSCOPY PREP Active Not available nitroglycerin 0.[address] ONE TABLET UNDER THE TONGUE EVERY 5 MINUTES FOR UP TO 3 DOSES NEEDED FOR CHEST PAIN. IF CHEST PAIN STILL PERSISTS CONTACT 911 Completed 01/07/2021 omeprazole 20 mg capsule,delayed release TAKE ONE CAPSULE BY MOUTH EVERY MORNING BEFORE BREAKFAST Completed 01/07/2021 oxycodone-acetaminophen 5 mg-325 mg tablet Completed 01/07/2021 polyethylene glycol 3350 17 gram/dose or al powder TAKE BY MOUTH DIRECTED SEE DR MARADIAGA COLON PREP INSTRUCTIONS Active Not available sertraline 100 mg tablet TAKE ONE TABLET BY MOUTH EVERY DAY DIRECTED Active Not available sertraline 50 mg tablet Completed 03/03/20 sucralfate 1 gram tablet TAKE ONE TABLET BY MOUTH FOUR TIMES A DAY BEFORE MEALS Completed 03/03/2021 Problems Name Status Onset Date Source Nicotine Dependence Active 02/21/2015 History Elevated Blood-pressure Reading without Diagnosis of Hyperte nsion Active 02/21/[address] Concept Active 02/21/2015 History General Finding of Observation of Patient Active 2014 History Finding of Esophagus Active 02/21/2015 History Mixed Hyperlipidemia Active 03/14/2015 History Generalized Anxiety Disorder Active 04/18/2015 His tory Secondary Hypertension Active 05/16/2015 History Lipid-rich Atherosclerosis of Coronary Artery Active History Urinary Tract Infectious Disease Active 08/07/2015 History Foreign Body Active 08/07/2015 History Nausea Active 08/22/2015 History Chest Pain Active 11/27/2015 History Streptococcal Sore Throat Active 12/11/2015 Histor y Moderate Recurrent Major Depression Active 12/11/2015 History Pyrexia of Unknown Origin Active 12/11/2015 Histor y Pharyngeal Finding Active 12/11/2015 History Clinical Finding Active 09/24/2016 History Clinical Finding Active 09/24/2016 History Abdominal Bloating Active 03/16/2017 History Finding of Ankle or Foot Active 03/16/2017 History Screening for Malignant Neoplasm of Cervix Active 02/08 History Liver Enzyme Levels - Finding Active 02/08/2019 Hi story Procedure by Method Active 02/08/2019 History Acquired Absence of Multiple Teeth Active 05/07/2019 History Tingling of Skin Active 05/29/2019 History Screening Mammography Active 10/02/2019 History Breast Neoplasm Screening Status Active 10/02/2019 History Left Upper Quadrant Pain Active 06/30/2020 History Body Mass Index 40+ - Severely Obese Active 03/03/2021 Patient Asked to Attend Active 03/03/2021 Hypothyroidism Active History Depressive Disorder Active History Procedures Date Name Performed by 01/07/2021 US, Abdomen, Complete Information not av ailable 03/03/2021 CT, Abdomen + Pelvis, W/wo Contrast [facility] [address] [place] [id number] (Work [address]) Notes: right shoulder 2009, Tubal, C-sec tions 1992, 1989, | teeth pulled, Results Lab Results Date Name Specimen Result Interpretation Description Value Range Status Address 04/30/2021 CBC W/ Auto Diff Normal White Blood Count 8.8 10 4.0-10.0 10 [facility]: [address] [place] [address] Normal Red Blood Count 4.38 10 4.00-5.40 10 [facility]: [address] [place] [address] Normal Hemoglobin 12.6 g/dL 12.0-15.5 g/dL [facility]: [address] [place] [address] Normal Hematocrit 39.8 % 36.0-47.0 % [facility]: [address] [place] [address] Normal Mean Corpuscular Volume 90.9 fL 80.0 -96.0 fL [facility]: [address] [place] [address] Normal Mean Corpuscular Hemoglobin 28.8 pg 27.0-33.0 pg [facility]: [address] [place] [address] Low Mean Corpuscular HGB Conc 31.7 g/dL 32.0-36.5 g/dL [facility]: [address] [place] [address] Normal Red Cell Distribution Width 12.9 % 1 1.5-14.5 % [facility]: [address] [place] [address] Normal Platelet Count, Automated 283 10 150 -450 10 [facility]: 0 [facility] Normal Neutrophils % 65.1 % 36.0-66.0 % [facility]: 0 [facility] Normal Lymph % 24.6 % 24.0-44.0 % [facility]: [address] [facility] [place] % 8.7 % 2.0-8.0 % [facility]: 0 [facility] Normal Eos % 0.5 % 0.0-3.0 % [facility]: [address] [facility] Normal Baso % 0.8 % 0.0-1.0 % [facility]: [address] [facility] Normal Immature Granulocyte % 0.3 % 0-3.0 % [facility]: [address] [facility] Normal Nucleated Red Blood Cell % 0.0 % 0- 0 % [facility]: [address] [facility] Normal Neutrophils # 5.7 10 1.5-8.5 10 [facility]: [address] [facility] Normal Lymph # 2.2 10 1.5-5.0 10 [facility]: [address] [facility] Normal [place] # 0.8 10 0.0-0.8 10 [facility]: [address] [facility] Normal Eos # 0.0 10 0.0-0.5 10 [facility]: [address] [facility] Normal Baso # 0.1 10 0.0-0.2 10 [facility]: [address] [facility] 04/30/2021 PT/INR Normal Prothrombin Time 12.7 secon ds 12.7-14.5 seconds [facility]: [address] [facility] Normal Inr 0.91 [facility]: 0 [facility] 04/30/2021 Hepatic Function Panel, Serum Normal AST/SG OT 23 U/L 7-37 U/L [facility]: [address] [facility] Normal ALT/SGPT 34 U/L 12-78 U/L [facility]: [address] [facility] Normal Alkaline Phosphatase 116 U/L 45-117 U/L [facility]: 0 [facility] Normal Bilirubin,total 0.3 mg/dL 0.2-1.0 mg /dL [facility]: 0 [facility] Normal Bilirubin,direct < 0.1 mg/dL 0.0-0.2 mg/dL [facility]: 0 [facility] Normal Total Protein 7.4 gm/dL 6.4-8.2 gm/d L [facility]: 0 [facility] Normal Albumin 3.5 gm/dL 3.2-5.2 gm/dL [facility]ine [facility]: [address] [place] [address] Low Albumin/globulin Ratio 0.9 1.2-2. 2 [facility]: 0 [facility] 04/30/2021 Gamma Glutamyltranspeptidase Normal Gamma Glutamyltranspeptidase 53 U/L 5-55 U/L [facility]: [address] [place] [address] 04/30/2021 TIBC (Total Iron-binding Capacity), Serum Normal Iron (Fe) 50 ug/dL 50-170 ug/dL [facility] nter: [address] [place] [address] Normal Total Iron Binding Capacity 360 ug/d L 250-450 ug/dL [facility]: [address] [place] [address] Normal Percent Saturation 13.9 % 13.2-45.0 % [facility]: [address] [place] [address] 04/30/2021 Hepatitis Panel (A+B+C), Acute, Serum Normal Hepatitis C Virus Patrizia Index 0.2 index <0.8 index [facility]: [address] [place] [address] Normal Hepatitis B Surface Antigen negative negative [facility]: 0 [facility] Normal Hepatitis B Core Antibody IgM negati ve negative [facility]: [address] [facility] Normal Hepatitis a Antibody IgM negative ne gative [facility]: [address] [place] [address] 04/30/2021 Anca, Serum Normal Cytoplasmic Neutrop Ab a nca-C <1:20 titer neg:<1:20 titer [facility]: 83 0 [facility] Normal Perinuclear Ab anca-P <1:20 titer ne g:<1:20 titer [facility]: [address], [place] Normal Anca-atypical <1:20 titer neg:<1:20 titer Final [facility]: [address] [facility] 04/30/2021 [id number] (Aat), QN, Serum Normal Alpha 1 Antitrypsin 127 mg/dL 101-187 mg/dL [facility] Center: [address] [facility] 04/30/2021 NIKO (Antinuclear Antibodies) Screen, Serum Nor mal Antinuclear Antibodies Direct negative negative Final [facility] ical Center: [address] [facility] 04/30/2021 Liver-kidney Microsomal Patrizia Normal Liver-kidney Microsomal Patrizia <20.1 units 0.0-20.0 units [facility] nter: 8[address] [facility] 04/30/2021 Ceruloplasmin, Serum Normal Ceruloplasmin 28.2 mg/dL 19.0-39.0 mg/dL [facility]: 83 0 [facility] 04/30/2021 Mitochondrial Ab, Serum Normal Anti -mitochondrial Antibody <20.0 units 0.0-20.0 units [facility] nter: 8[address] [facility] 04/01/2021 Iga, Quantitative, Serum Normal Immunoglobu belkys a 178.0 mg/dL 70-400 mg/dL [facility]: 83 0 [facility] 04/01/2021 Tissue Transglutaminase IgA Normal Tissue Transglutaminase IgA <2 U/mL 0-3 U/mL [facility] nter: [address] [facility] 03/11/2021 Pap Request for Service Thin Prep Pap Sm ear Final [facility]: [address] [facility] 03/11/2021 HPV Screen (High Risk Only) Normal HPV Apti ma negative negative [facility]: 83 0 [facility] 03/11/2021 Pap, LB + hr HPV Thin Prep Pap Smear [facility] (Lab): 8[address] [facility] 03/03/2021 CBC W/ Auto Diff Blood venous Normal White Blood C ount 7.2 10 4.0-10.0 10 [facility]: 83 0 [facility] Blood venous Normal Red Blood Count 4.37 10 4.00- 5.40 10 [facility]: [address] [facility] Blood venous Normal Hemoglobin 12.5 g/dL 12.0-15. 5 g/dL [facility]: [address] [facility] Blood venous Normal Hematocrit 39.9 % 36.0-47.0 % [facility]: [address] [facility] Blood venous Normal Mean Corpuscular Volume 91.3 fL 80.0-96.0 fL [facility]: [address] [facility] Blood venous Normal Mean Corpuscular Hemoglob in 28.6 pg 27.0-33.0 pg [facility]: [address] [facility] Blood venous Low Mean Corpuscular HGB Conc 31.3 g/dL 32.0-36.5 g/dL [facility]: [address] [facility] Blood venous Normal Red Cell Distribution Wid th 13.7 % 11.5-14.5 % [facility]: [address] [facility] Blood venous Normal Platelet Count, Automated 288 10 150-450 10 [facility]: [address] [facility] Blood venous Normal Neutrophils % 61.9 % 36.0-66. 0 % [facility]: [address] [facility] Blood venous Normal Lymph % 27.5 % 24.0-44.0 % [facility]: [address] [facility] Blood venous [place] % 8.3 % 2.0-8.0 % [facility]: [address] [facility] Blood venous Normal Eos % 0.6 % 0.0-3.0 % [facility]: 0 [facility] Blood venous High Baso % 1.1 % 0.0-1.0 % [facility]: 0 [facility] Blood venous Normal Immature Granulocyte % 0.6 % 0-3.0 % [facility]: [address] [place] [address] Blood venous Normal Nucleated Red Blood Cell % 0. 0 % 0-0 % [facility]: [address] [place] [address] Blood venous Normal Neutrophils # 4.5 10 1.5-8.5 10 [facility]: [address] [place] [address] Blood venous Normal Lymph # 2.0 10 1.5-5.0 10 [facility]: [address] [place] [address] Blood venous Normal [place] # 0.6 10 0.0-0.8 10 [facility]: [address] [place] [address] Blood venous Normal Eos # 0.0 10 0.0-0.5 10 [facility]: [address] [place] [address] Blood venous Normal Baso # 0.1 10 0.0-0.2 10 [facility]: [address] [place] [address] 03/03/2021 CMP, Serum or Plasma Blood venous Normal Glu cose, Fasting 79 mg/dL 70-100 mg/dL [facility] nter: [address] [place] [address] Blood venous Normal Blood Urea Nitrogen 12 mg/dL 7-18 mg/dL [facility]: [address] [place] [address] Blood venous Normal Creatinine for GFR 0.74 mg/dL 0.55-1.30 mg/dL [facility]: [address] [place] [address] Blood venous Normal Glomerular Filtration Rate > 60.0 >58 [facility]: [address] [place] [address] Blood venous Normal Sodium Level 141 mEq/L 136-14 5 mEq/L [facility]: [address] [place] [address] Blood venous Normal Potassium Serum 4.7 mEq/L 3.5 -5.1 mEq/L [facility]: [address] [place] [address] Blood venous Normal Chloride Level 106 mEq/L 98-1 07 mEq/L [facility]: [address] [place] [address] Blood venous Normal Carbon Dioxide Level 27 mEq/L 21-32 mEq/L [facility]: [address] [place] [address] Blood venous Normal Anion Gap 8 mEq/L 8-16 mEq/L [facility]: [address] [facility] Blood venous Normal Calcium Level 9.3 mg/dL 8.5-1 0.1 mg/dL [facility]: [address] [facility] Blood venous Normal AST/SGOT 21 U/L 7-37 U/L [facility]ine [facility]: [address] [facility] Blood venous Normal ALT/SGPT 36 U/L 12-78 U/L [facility]: [address] [facility] Blood venous High Alkaline Phosphatase 121 U/L 45-117 U/L [facility]: [address] [facility] Blood venous Normal Bilirubin,total 0.3 mg/dL 0.2 -1.0 mg/dL [facility]: [address] [facility] Blood venous Normal Total Protein 7.6 gm/dL 6.4-8 .2 gm/dL [facility]: [address] [place] [address] Blood venous Normal Albumin 3.6 gm/dL 3.2-5.2 gm/ dL [facility]: [address] [place] [address] Blood venous Low Albumin/globulin Ratio 0.9 1.2-2.2 [facility]: 0 [facility] 03/03/2021 Lipid Panel, Blood Blood venous High Trigl ycerides Level 314 mg/dL <150 mg/dL [facility] nter: [address] [facility] Blood venous High Cholesterol Level 231 mg/dL < 200 mg/dL [facility]: 0 [facility] Blood venous Low HDL Cholesterol 31 mg/dL >40 mg/dL [facility]: 0 [facility] Blood venous High LDL Cholesterol 137 mg/dL <10 0 mg/dL [facility]: 0 [facility] Blood venous Normal Non-hdl-c 200 mg/dL [facility]: [address] [facility] Blood venous High Cholesterol Risk Ratio 7.451 <5 [facility]: 0 [facility] 03/03/2021 TSH + Free T4, Serum Blood venous Normal Thyroid Stimulating Hormone 0.562 uIU/mL 0.358-3.740 uIU/mL [facility]: [address] [facility] Blood venous Normal Free T4 1.27 NG/dL 0.76-1.46 NG/dL [facility]: [address] [facility] 03/03/2021 T3, Total, Serum Blood venous Normal Total T3 144 .6 NG/dL 60.0- 181.0 NG/dL [facility]: 83 0 [facility] 03/03/2021 Thyroid Peroxidase (Tpo) Ab, Serum High Thyroid Peroxidase Antibody 507.7 U/mL <60.0 U/mL [facility] Center: 0 [facility] 01/14/2021 CBC W/ Auto Diff Blood venous Normal White Blood C ount 8.7 10 4.0-10.0 10 [facility]: [address] 0 [facility] Blood venous Normal Red Blood Count 4.26 10 4.00- 5.40 10 [facility]: [address] [facility] Blood venous Normal Hemoglobin 12.3 g/dL 12.0-15. 5 g/dL [facility]: 0 [facility] Blood venous Normal Hematocrit 38.8 % 36.0-47.0 % [facility]: 0 [facility] Blood venous Normal Mean Corpuscular Volume 91.1 fL 80.0-96.0 fL [facility]: 0 [facility] Blood venous Normal Mean Corpuscular Hemoglob in 28.9 pg 27.0-33.0 pg [facility]: [address] [facility] Blood venous Low Mean Corpuscular HGB Conc 31.7 g/dL 32.0-36.5 g/dL [facility]: 0 [facility] Blood venous High Red Cell Distribution Width 1 4.6 % 11.5-14.5 % [facility]: 0 [facility] Blood venous Normal Platelet Count, Automated 237 10 150-450 10 [facility]: [address] [place] [address] Blood venous Normal Neutrophils % 65.8 % 36.0-66. 0 % [facility]: [address] [place] [address] Blood venous Low Lymph % 23.0 % 24.0-44.0 % [facility]: [address] [place] [address] Blood venous Normal [place] % 7.8 % 2.0-8.0 % [facility]: [address] [place] [address] Blood venous Normal Eos % 0.9 % 0.0-3.0 % [facility]: [address] [place] [address] Blood venous High Baso % 1.5 % 0.0-1.0 % [facility]: [address] [place] [address] Blood venous Normal Immature Granulocyte % 1.0 % 0-3.0 % [facility]: [address] [place] [address] Blood venous Normal Nucleated Red Blood Cell % 0. 0 % 0-0 % [facility]: [address] [place] [address] Blood venous Normal Neutrophils # 5.8 10 1.5-8.5 10 [facility]: [address] [place] [address] Blood venous Normal Lymph # 2.0 10 1.5-5.0 10 [facility]: [address] [place] [address] Blood venous Normal [place] # 0.7 10 0.0-0.8 10 [facility]: [address] [place] [address] Blood venous Normal Eos # 0.1 10 0.0-0.5 10 [facility]: [address] [place] [address] Blood venous Normal Baso # 0.1 10 0.0-0.2 10 [facility]: [address] [place] [address] 01/14/2021 Urinalysis, Dipstick Normal Appearance, Urine hazy clear [facility]: [address] [place] [address] Normal Color, Urine yellow yellow [facility]: [address] [place] [address] Normal pH,urine 6.0 units 5.0-9.0 units [facility]: [address] [place] [address] Normal Specific [place] Urine Auto 1.020 1 .002-1.035 [facility]: [address] [facility] Normal Protein, Urine Auto negative mg/dL n egative mg/dL [facility]: [address] [facility] Normal Glucose, Urine (UA) Auto negative mg /dL negative mg/dL [facility]: [address] [facility] Normal Ketone, Urine Auto negative mg/dL ne gative mg/dL [facility]: [address] [facility] Normal Urobilinogen, Urine Auto 0.2 mg/dL 0 .0-2.0 mg/dL [facility]: [address] [facility] Normal Bilirubin, Urine Auto negative negat jono [facility]: [address] [facility] Normal Nitrite, Urine Auto negative negativ e [facility]: [address] [facility] Normal Leukocyte Esterase, Urine Auto negat jono negative [facility]: [address] [facility] Normal Blood, Urine Blood negative negative [facility]: [address] [facility] Normal WBC, Urine Auto 1 /hpf 0-3 /hpf [facility]: [address] [facility] Normal RBC, Urine Auto 0 /hpf 0-3 /hpf [facility]: [address] [facility] Normal Bacteria, Urine Auto negative negati ve [facility]: [address] [facility] Normal Squamous Epithelial Cell Ur AU 6 /hp f 0-6 /hpf [facility]: [address] [facility] Normal Hyaline Cast, Urine Auto 0 /lpf 0-1 /lpf [facility]: [address] [facility] 01/14/2021 CMP, Serum or Plasma Blood venous Normal Glu cose, Fasting 92 mg/dL 70-100 mg/dL [facility] nter: [address] [facility] Blood venous Normal Blood Urea Nitrogen 16 mg/dL 7-18 mg/dL [facility]: [address] [facility] Blood venous Normal Creatinine for GFR 0.95 mg/dL 0.55-1.30 mg/dL [facility]: [address] [facility] Blood venous Normal Glomerular Filtration Rate > 60.0 >58 [facility]: [address] [facility] Blood venous Normal Sodium Level 140 mEq/L 136-14 5 mEq/L [facility]: [address] [facility] Blood venous Normal Potassium Serum 4.1 mEq/L 3.5 -5.1 mEq/L [facility]: [address] [facility] Blood venous Normal Chloride Level 106 mEq/L 98-1 07 mEq/L [facility]: [address] [facility] Blood venous Normal Carbon Dioxide Level 27 mEq/L 21-32 mEq/L [facility]: [address] [facility] Blood venous Low Anion Gap 7 mEq/L 8-16 mEq/L [facility]: [address] [facility] Blood venous Normal Calcium Level 9.3 mg/dL 8.5-1 0.1 mg/dL [facility]: [address] [facility] Blood venous Normal AST/SGOT 30 U/L 7-37 U/L [facility]: [address] [facility] Blood venous Normal ALT/SGPT 37 U/L 12-78 U/L [facility]: [address] [facility] Blood venous High Alkaline Phosphatase 171 U/L 45-117 U/L [facility]: [address] [facility] Blood venous Normal Bilirubin,total 0.3 mg/dL 0.2 -1.0 mg/dL [facility]: [address] [facility] Blood venous Normal Total Protein 7.6 gm/dL 6.4-8 .2 gm/dL [facility]: 0 [facility] Blood venous Normal Albumin 3.7 gm/dL 3.2-5.2 gm/ dL [facility]: [address] [place] [address] Blood venous Low Albumin/globulin Ratio 0.9 1.2-2.2 [facility]: [address] [place] [address] 01/14/2021 Lipid Panel, Blood Blood venous High Trigl ycerides Level 285 mg/dL <150 mg/dL [facility] nter: [address] [place] [address] Blood venous High Cholesterol Level 312 mg/dL < 200 mg/dL [facility]: [address] [place] [address] Blood venous Low HDL Cholesterol 34 mg/dL >40 mg/dL [facility]: [address] [place] [address] Blood venous High LDL Cholesterol 221 mg/dL <10 0 mg/dL [facility]: [address] [place] [address] Blood venous Normal Non-hdl-c 278 mg/dL [facility]: [address] [place] [address] Blood venous High Cholesterol Risk Ratio 9.176 <5 [facility]: [address] [place] [address] 01/14/2021 TSH + Free T4, Serum Blood venous High Thyroid Stimulating Hormone 67.900 uIU/mL 0.358-3.740 uIU/mL [facility] ical Center: [address] [place] [address] Blood venous Low Free T4 0.52 NG/dL 0.76-1.46 NG/dL [facility]: [address] [place] [address] 01/14/2021 Vitamin D, 25-Hydroxy, Total, Serum Blood venous Low Total 25(Oh) Vitamin D 15.4 NG/mL 30.0-100.0 NG/mL [facility] Center: [address] [place] [address] 01/14/2021 HbA1C (Hemoglobin a1C), Blood Blood venous Normal Hemoglobin a1C 5.8 % [facility] Center: [address] [place] [address] Blood venous High Estimated Average Glucose 120 mg/dL 60-110 mg/dL [facility]: [address] [place] [address] 01/14/2021 Culture, Urine URINE,CLEAN CATCH No observation recorded. [facility]: [address] [place] [address] Past Encounters 06/29/2021 Prediabetes Ree Arteaga, [facility]: [address] [place] [phone], Ph. 05/11/2021 Enlarged Uterus; Prediabetes; Body Mass Index 40+ - Severely Obese; Patient Asked to Attend; Abdominal Pain [facility]: [address] [place] [phone], Ph. 03/11/2021 Screening for Malignant Neoplasm of Cervix; Body Mass Index 40+ - Severely Obese; Adult Health Examination; Elevated Blood-pressure Reading without Diagnosis of Hypertension [facility]: [address] [place] [phone], Ph. 03/03/2021 Body Mass Index 40+ - Severely Obese; Abdominal Bloating; Hypothyroidism; Mixed Hyperlipidemia; Screening for Malignant Neoplasm of Cervix; Patient Asked to Attend [facility]: [address] [place] [phone], Ph. 01/14/2021 [facility]: [address] [place] [phone], Ph. 01/07/2021 Abdominal Bloating; Depressive Disorder [facility]: [address] [place] [phone], Ph. Social History Tobacco Smoking Status Former Smoker Vaccine List Vaccine Type COVID-19, mRNA, LNP-S, PF, 100 mcg/0.5 m L dose 12/03/2020 12/23/2020 Plan of Care Patient Instructions Please continue medications as prescribe d. Please try to maintain good nutrition, adequate rest and adequate physical activities and adequate intake of water daily. Recent CT of abdomen and pelvic indicates enlarged uterus, We have made a referral for you today. We will contact you to set this up. You have had your pap smear done today. We will contact you if results are concerning. Please try to complete monthly self breast exam. Best done week following menstrual cycle. Please report any abnormal findings or changes. Your Blood Pressure is slightly elevated today. Please continue healthy diet and physical activities. Please try to avoid added sodium in your diet. Please try to avoid processed foods. Please try to maintain adequate intake of water daily. Lab results reviewed and discussed with you today. Please continue medications as prescribed. Please try to maintain good nutrition, adequate rest and adequate physical activities and adequate intake of water daily. Cholesterol levels significantly elevated. Will start Atorvastatin 40 mg daily at nights. Please continue healthy diet and physical activities. Please try to avoid processed foods. Thyroid level is significantly elevated. Since labs were done back in December, will recheck labs today prior to adjusting medication dosage. CT scan ordered for further eval of abdominal discomfort. We will contact you to set this up. Please keep your appointment with GI specialist as scheduled. Labs ordered. We have made a referral fo r you today. We will contact you to set this up. Reminders Provider Appointments None recorded. Lab None recorded. Referral None recorded. Procedures None recorded. Surgeries None recorded. Imaging None recorded. Vitals 06/29/2021 08:10AM NURSE LAB COLLECTION Height 67 in 05/11/2021 03:00PM SAME DAY 20 Height Weight BMI Blood Pressure 67 in 264 lbs 41.3 kg/m2 131/88 mm[Hg] 03/11/2021 08:00AM PAP SMEAR Height Weight BMI Blood Pressure 67 in 274 lbs 16 oz 43.1 kg/m2 140/85 mm[Hg] 03/03/2021 10:20AM ESTABLISHED [id number] Height Weight BMI Blood Pressure 67 in 275 lbs 6 oz 43.1 kg/m2 136/87 mm[Hg] 01/14/2021 08:10AM NURSE LAB COLLECTION Height 67 in 01/07/2021 05:00PM PROVIDER REQUESTED Height Weight BMI Blood Pressure 67 in 285 lbs 44.6 kg/m2 122/90 mm[Hg] 06/30/2020 Height Weight BMI Blood Pressure 67 in 261 lbs 41.03 kg/m2 124/86 mm[Hg] 10/02/2019 Height Weight BMI Blood Pressure 67 in 161 lbs 8 oz 25.39 kg/m2 114/84 mm[Hg] 05/29/2019 Height Weight BMI Blood Pressure 67 in 253 lbs 39.77 kg/m2 144/91 mm[Hg] 04/26/2019 Height Weight BMI Blood Pressure 67 in 257 lbs 40.40 kg/m2 123/85 mm[Hg] 03/02/2019 Height Weight BMI Blood Pressure 67 in 276 lbs 43.38 kg/m2 127/93 mm[Hg] 02/08/2019 Height Weight BMI Blood Pressure 67 in 273 lbs 42.91 kg/m2 130/93 mm[Hg]"
--- OUTSIDE RECORDS SUMMARY | 2021-07-13 11:38 | CCD | Continuity of Care Document ---
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 AUTM Alicia StroudN.P. AUTM [phone] Ree Arteaga.N.P. AUTM [phone] Problems Description No Active Problems Social History Type Date Description Comments Sex Unknown ETOH Use Denies alcohol use Tobacco Use Start: Unknown Report Cessation Counseling Was Provided Tobacco Use Start: Unknown Quit Allergies, Adverse Reactions, Alerts Description No Known Drug Allergies Medications Active Medications SIG Qnty Indications Ordering Provide r Date Dicyclomine HCL 10mg Capsules 1 to 2 by mouth every 6 hours as needed abdominal cramping 90caps R19.7 Anita Rosas MD 04/01/2021 Milk Of Magnesia 7.75% Suspension take 45 milliliters by mouth about 1-2 days before colonoscopy prep 360ml R10.12 Anita Rosas MD 04/01/2021 Miralax 17GM/Scoop Powder use as directed see dr rosas colon preparation instructions 510gm R10.12 Shubham bronwyn Rosas MD 04/01/2021 Atorvastatin Calcium 40mg Tablets daily Unknown Levothyroxine Sodium 100mcg Soluti on Rec Unknown Aspir-[address] Esparza Sertraline HCL 100mg Tablets 1 by mouth every day Unknown Gabapentin 600mg Tablets 1 tab by mouth three times a day Unknown Immunizations Description No Information Available Vital Signs Date Vital Result Comment 04/01/2021 8:52am BP Systolic 134 mmHg BP Diastolic 77 mmHg Height 67 inches 5'7" Weight 270.00 lb BMI (Body Mass Index) 42.3 kg/m2 [place] Body Weight 135 lb Weight 122.472 kg BSA (Body Surface Area) 2.30 m2 05/28/2015 3:15pm BP Systolic 105 mmHg BP Diastolic 67 mmHg Height 67 inches 5'7" Weight 225.00 lb BMI (Body Mass Index) 35.2 kg/m2 [place] Body Weight 135 lb Weight 102.060 kg BSA (Body Surface Area) 2.13 m2 Results Test Acquired Date Facility Test Result H/L Range Note Antinuclear Antibodies 04/30/2021 [facility] Main Lab [address] [place] [phone] Antinuclear Antibodies Direct Negative Normal Ne gative Laboratory test finding 04/30/2021 [facility] Main Lab [address] [place] [phone] Anti-Mitochondrial Antibody <20.0 units Normal 0.0 -20.0 1 Anti-Neutrophil Cytoplasmic AB 04/30/2021 [facility] Main Lab [address] [place] [address] [phone] Cytoplasmic Neutrop AB Anca-C <1:20 titer Normal N eg:<1:20 Perinuclear AB Anca-P <1:20 titer Normal Neg:<1:20 2 Anca-Atypical <1:20 titer Normal Neg:<1:20 3 Laboratory test finding 04/30/2021 [facility] Main Lab [address] [place] [phone] Liver-Kidney Microsomal Patrizia <20.1 units Normal 0.0 -20.0 4 Total Iron Binding Capacit 04/30/2021 [facility] Main Lab [address] [place] [address] [phone] Iron (Fe) 50 g/dL Normal 50-170 Total Iron Binding Capacity 360 g/dL Normal 250-450 Percent Saturation 13.9 % Normal 13.2-45.0 Laboratory test finding 04/30/2021 [facility] Main Lab [address] [place] [address] [phone] Ceruloplasmin 28.2 mg/dL Normal 19.0-39.0 Alpha 1 Antitrypsin 127 mg/dL Normal 101-187 5 Hepatitis Profile 04/30/2021 [facility] Main Lab [address] [place] [address] [phone] Hepatitis C Virus [place] Index 0.2 INDEX Normal <0.8 6 Hepatitis B Surface Antigen NEGATIVE Normal Negative Hepatitis B Core Antibody Igm NEGATIVE Normal Negative Hepatitis A Antibody Igm NEGATIVE Normal Negative Liver Profile 04/30/2021 [facility] Main Lab [address] [place] [address]60 [phone] Ast/Sgot 23 U/L Normal 7-37 Alt/SGPT 34 U/L Normal 12-78 Alkaline Phosphatase 116 U/L Normal 45-117 Bilirubin,Total 0.3 mg/dL Normal 0.2-1.0 Bilirubin,Direct < 0.1 mg/dL Normal 0.0-0.2 Total Protein 7.4 GM/DL Normal 6.4-8.2 Albumin 3.5 GM/DL Normal 3.2-5.2 Albumin/Globulin Ratio 0.9 Low 1.2-2.2 Laboratory test finding 04/30/2021 [facility] Main Lab [address] [place] [address] [phone] Gamma Glutamyltranspeptidase 53 U/L Normal 5-5 5 Prothrombin Time/Inr 04/30/2021 [facility] Main Lab [address] [place] [address] [phone] Prothrombin Time 12.7 seconds Normal 12.7-14.5 Inr 0.91 Normal 7 CBC With Differential 04/30/2021 [facility] Main Lab [address] [place] [address] 09631 [phone] White Blood Count 8.8 10 Normal 4.0-10.0 Red Blood Count 4.38 10 Normal 4.00-5.40 Hemoglobin 12.6 g/dL Normal 12.0-15.5 Hematocrit 39.8 % Normal 36.0-47.0 Mean Corpuscular Volume 90.9 fl Normal 80.0-96.0 Mean Corpuscular Hemoglobin 28.8 pg Normal 27.0-33.0 Mean Corpuscular HGB Conc 31.7 g/dL Low 32.0-36.5 Red Cell Distribution Width 12.9 % Normal 11.5-14.5 Platelet Count, Automated 283 10 Normal 150-450 Neutrophils % 65.1 % Normal 36.0-66.0 Lymph % 24.6 % Normal 24.0-44.0 [place] % 8.7 % High 2.0-8.0 Eos % 0.5 % Normal 0.0-3.0 Baso % 0.8 % Normal 0.0-1.0 Immature Granulocyte % 0.3 % Normal 0-3.0 Nucleated Red Blood Cell % 0.0 % Normal 0-0 Neutrophils # 5.7 10 Normal 1.5-8.5 Lymph # 2.2 10 Normal 1.5-5.0 [place] # 0.8 10 Normal 0.0-0.8 Eos # 0.0 10 Normal 0.0-0.5 Baso # 0.1 10 Normal 0.0-0.2 Laboratory test finding 04/01/2021 [facility] Main Lab [address] [place], [place] [id number] [phone] Tissue Transglutaminase IgA <2 U/mL Normal 0-3 8 Immunoglobulin A 178.0 mg/dL Normal 70-400 9 1 Negative 0.0 - 20.0 Equivocal 20.1 - 24.9 Positive >24.9 . Mitochondrial (M2) Antibodies are found in 90-96% of patients with primary biliary cirrhosis. 2 The presence of positive flu orescence exhibiting P-ANCA or C-ANCA patterns alone is not specific for the diagnosis of Lesli's Granulomatosis (WG) or microscopic polyangiitis. Decisions about treatment should not be based solely on ANCA IFA results. The International ANCA Group Consensus recommends follow up testing of positive sera with both MI- 3 and MPO-ANCA enzyme immunoassays. As m any as 5% serum samples are positive only by EIA. Ref. AM J Clin Pathol 1999;111:507-513. 3 The atypical pANCA pattern h as been observed in a significant percentage of patients with ulcerative colitis, primary sclerosing cholangitis and autoimmune hepatitis. 4 Negative 0.0 - 20.0 Equivocal 20.1 - 24.9 Positive >24.9 . LKM type 1 antibodies are detected in patients with autoimmune hepatitis type 2 and in up to 8% of patients with chronic HCV infection. 5 Performed at: [address] [id number] Director Of Nurses Registry: Luanne Mchugh MD, Phone: [phone] Performed at: [address] [id number] Director Of Nurses Registry: Kimberly Castellon MD, Phone: [phone] 6 Negative Not infected with HCV, unless recent infection is suspected or other evidence exists to indicate HCV infection. 7 THERAPUTIC HUMAN INR VALUES INDICATIONS NORMAL RANGES PROPHYLAXIS/TREATMENT OF: VENOUS THROMBOSIS 2.0-3.0 PULMONARY EMBOLISM 2.0-3.0 PREVENTION OF SYSTEMIC EMBOLISM FROM: TISSUE HEART VALVES 2.0-3.0 ACUTE MYOCARDIAL INFARCTION 2.0-3.0 VALVULAR HEART DISEASE 2.0-3.0 ATRIAL FIBRILLATION 2.0-3.0 MECHANICAL VALVES(HIGH RISK) 2.5-3.5 RECURRENT MYOCARDIAL INFARCTION 2.5-3.5 8 Negative 0 - 3 Weak Positive 4 - 10 Positive >10 . Tissue Transglutaminase (tTG) has been identified as the endomysial antigen. Studies have demonstr- ated that endomysial IgA antibodies have over 99% specificity for gluten sensitive enteropathy. Performed at: [address] [id number] Director Of Nurses Registry: Kimberly Castellon MD, Phone: [phone] 04/19/21 (TueApr 19) 06:57 PM ANITA ROSAS neg Procedures Date Code Description Status 04/01/2021 74513 Office/Outpatient New Moderate M DM 45-59 Minutes Completed Medical Devices Description No Information Available Encounters Type Date Location Provider Dx Diagnosis Office Visit 04/01/2021 8:45a [facility] Gastroenterology Pra ctice Anita Rosas MD R10.12 Left upper quadrant pain R10.32 Left lower quadrant pain R19.7 Diarrhea, unspecified R14.0 Abdominal distension (gaseou s) K30 Functional dyspepsia K21.9 Gastro-esophageal reflux dis ease without esophagitis Assessments Date Code Description Provider 04/01/2021 R10.12 Left upper quadrant pain Anita dove MD 04/01/2021 R10.32 Left lower quadrant pain Anita dove MD 04/01/2021 R19.7 Diarrhea, unspecified Anita medeiros MD 04/01/2021 R14.0 Abdominal distension (gaseous) Lara Rosas MD 04/01/2021 K30 Functional dyspepsia Anita carrizales MD 04/01/2021 K21.9 Gastro-esophageal reflux disease without esophagitis Anita Rosas MD Plan of Treatment Future Appointment(s):* 07/13/2021 2:00 am - Anita Rosas MD at [facility] G[facility]enterology Practice 04/01/2021 - Anita Rosas MD* R10.12 Left upper quadrant pain * R10.32 Left lower quadrant pain * R19.7 Diarrhea, unspecified * R14.0 Abdominal distension (gaseous) * K30 Functional dyspepsia * K21.9 Gastro-esophageal reflux disease without esophagitis * * New Medication:* Milk Of Magnesia 7.75 % * Miralax 17 GM/Scoop * Comments:* dyspeptic symptoms with belching has improved spontaneously. continues with diarrhea and abdominal bloating. tyoically after meals, buit also in early am. does not wake at night. * Recommendations:* Ct A/p-r/o diverticulitis. r/o other. ( Ultrasound was nondiagnostic/not interpretable) Stool testing Blood work EGD,Colonoscopy. Functional Status Description No Information Available Mental Status Description No Information Available Referrals Refer to Reason for Referral Status Appt Date Anita Rosas M.D. R14.0 ABDOMINAL DISTENSION, R19.7 DIARRHEA Scheduled 04/01/2021 [facility], Gastroenterology [address], [address] [place] [id number] [phone]
--- OUTSIDE RECORDS SUMMARY | 2021-07-13 11:39 | CCD ---
Author Organization Unknown Address [address] [place] [id number] Phone [phone] Care Team Providers Care Well Treatment Offsider Name Role Phone Ree Arteaga Unavailable Unavailable [...] tablet Completed 01/07/2021 levothyroxine 150 mcg tablet Active Not available levothyroxine 175 mcg tablet [...] Active Not available sertraline 100 mg tablet Active Not nando ilable sertraline 50 mg tablet Completed 03/03/20 sucralfate [...] 03/03/2021 CT, Abdomen + Pelvis, W/wo Contrast [facility] Radiology [address] [place] [address] (Work Place) Notes: right shoulder 2009, Tubal, C-sec tions 1992, 1989, | teeth pulled, Results Lab Results Date Name Specimen Result Interpretation Description Value Range Status Address 04/30/2021 CBC W/ Auto Diff Normal White Blood Count 8.8 10 4.0-10.0 10 [facility]: [address] [place] [address] Normal Red Blood Count 4.38 10 4.00-5.40 10 [facility]: [address] [place] [address] Normal Hemoglobin 12.6 g/dL 12.0-15.5 g/dL [facility]: [address] [place] [address] Normal Hematocrit 39.8 % 36.0-47.0 % [facility]: [address] [place] [address] Normal Mean Corpuscular Volume 90.9 fL 80.0 -96.0 fL [facility]: [address] [place] [address] Normal Mean Corpuscular Hemoglobin 28.8 pg 27.0-33.0 pg [facility]: [address] [place] [address] Low Mean Corpuscular HGB Conc 31.7 g/dL 32.0-36.5 g/dL [facility]: [address] [place] [address] Normal Red Cell Distribution Width 12.9 % 1 1.5-14.5 % [facility]: [address] [place] [address] Normal Platelet Count, Automated 283 10 150 -450 10 [facility]: 0 [facility] Normal Neutrophils % 65.1 % 36.0-66.0 % [facility]: [address] [facility] Normal Lymph % 24.6 % 24.0-44.0 % [facility]: [address] [facility] High [place] % 8.7 % 2.0-8.0 % [facility]: [address] [facility] Normal Eos % 0.5 % 0.0-3.0 % [facility]: [address] [facility] Normal Baso % 0.8 % 0.0-1.0 % [facility]: [address] [facility] Normal Immature Granulocyte % 0.3 % 0-3.0 % [facility]: [address] [facility] Normal Nucleated Red Blood Cell % 0.0 % 0- 0 % [facility]: [address] [facility] Normal Neutrophils # 5.7 10 1.5-8.5 10 [facility]: [address] [facility] Normal Lymph # 2.2 10 1.5-5.0 10 [facility]: [address] [facility] Normal [place] # 0.8 10 0.0-0.8 10 [facility]: [address] [facility] Normal Eos # 0.0 10 0.0-0.5 10 [facility]: [address] [facility] Normal Baso # 0.1 10 0.0-0.2 10 [facility]: [address] [facility] 04/30/2021 PT/INR Normal Prothrombin Time 12.7 secon ds 12.7-14.5 seconds [facility]: 0 [facility] Normal Inr 0.91 [facility]: 0 [facility] 04/30/2021 Hepatic Function Panel, Serum Normal AST/SG OT 23 U/L 7-37 U/L [facility]: [address] [facility] Normal ALT/SGPT 34 U/L 12-78 U/L [facility]: [address] [facility] Normal Alkaline Phosphatase 116 U/L 45-117 U/L [facility]: 0 [facility] Normal Bilirubin,total 0.3 mg/dL 0.2-1.0 mg /dL [facility]: 0 [facility] Normal Bilirubin,direct < 0.1 mg/dL 0.0-0.2 mg/dL [facility]: [address] [facility] Normal Total Protein 7.4 gm/dL 6.4-8.2 gm/d L [facility]: [address] [facility] Normal Albumin 3.5 gm/dL 3.2-5.2 gm/dL Aline l [facility]: [address] [facility] Low Albumin/globulin Ratio 0.9 1.2-2. 2 [facility]: [address] [facility] 04/30/2021 Gamma Glutamyltranspeptidase Normal Gamma Glutamyltranspeptidase 53 U/L 5-55 U/L [facility] Center: [address] [place] [address] 04/30/2021 TIBC (Total Iron-binding Capacity), Serum Normal Iron (Fe) 50 ug/dL 50-170 ug/dL [facility] nter: 0 [facility] Normal Total Iron Binding Capacity 360 ug/d L 250-450 ug/dL [facility]: [address] [place] [address] Normal Percent Saturation 13.9 % 13.2-45.0 % [facility]: 0 [facility] 04/30/2021 Hepatitis Panel (A+B+C), Acute, Serum Normal Hepatitis C Virus Ptarizia Index 0.2 index <0.8 index [facility]: [address] [place] [address] Normal Hepatitis B Surface Antigen negative negative [facility]: 0 [facility] Normal Hepatitis B Core Antibody IgM negati ve negative [facility]: [address] [facility] Normal Hepatitis a Antibody IgM negative ne gative [facility]: [address] [facility] 04/30/2021 Anca, Serum Normal Cytoplasmic Neutrop Ab a nca-C <1:20 titer neg:<1:20 titer [facility]: 83 0 [facility] Normal Perinuclear Ab anca-P <1:20 titer ne g:<1:20 titer [facility]: [address] [facility] Normal Anca-atypical <1:20 titer neg:<1:20 titer [facility]: [address] [facility] 04/30/2021 [id number] (Aat), QN, Serum Normal Alpha 1 Antitrypsin 127 mg/dL 101-187 mg/dL Final [facility] Center: [address] [facility] 04/30/2021 NIKO (Antinuclear Antibodies) Screen, Serum Nor mal Antinuclear Antibodies Direct negative negative Final [facility] ical Center: [address] [facility] 04/30/2021 Liver-kidney Microsomal Patrizia Normal Liver-kidney Microsomal Patrizia <20.1 units 0.0-20.0 units [facility] nter: [address] [facility] 04/30/2021 Ceruloplasmin, Serum Normal Ceruloplasmin 28.2 mg/dL 19.0-39.0 mg/dL [facility]: 83 0 [facility] 04/30/2021 Mitochondrial Ab, Serum Normal Anti -mitochondrial Antibody <20.0 units 0.0-20.0 units [facility] nter: [address] [facility] 04/01/2021 Iga, Quantitative, Serum Normal Immunoglobu belkys a 178.0 mg/dL 70-400 mg/dL [facility]: 83 0 [facility] 04/01/2021 Tissue Transglutaminase IgA Normal Tissue Transglutaminase IgA <2 U/mL 0-3 U/mL [facility] nter: [address] [facility] 03/11/2021 Pap Request for Service Thin Prep Pap Sm ear Final [facility]: [address] [facility] 03/11/2021 HPV Screen (High Risk Only) Normal HPV Apti ma negative negative [facility]: 83 0 [facility] 03/11/2021 Pap, LB + hr HPV Thin Prep Pap Smear [facility] (Lab): [address] [facility] 03/03/2021 CBC W/ Auto Diff Blood venous Normal White Blood C ount 7.2 10 4.0-10.0 10 [facility]: 83 0 [facility] Blood venous Normal Red Blood Count 4.37 10 4.00- 5.40 10 [facility]: [address] [place] [address] Blood venous Normal Hemoglobin 12.5 g/dL 12.0-15. 5 g/dL [facility]: [address] [place] [address] Blood venous Normal Hematocrit 39.9 % 36.0-47.0 % [facility]: [address] [place] [address] Blood venous Normal Mean Corpuscular Volume 91.3 fL 80.0-96.0 fL [facility]: [address] [place] [address] Blood venous Normal Mean Corpuscular Hemoglob in 28.6 pg 27.0-33.0 pg [facility]: [address] [place] [address] Blood venous Low Mean Corpuscular HGB Conc 31.3 g/dL 32.0-36.5 g/dL [facility]: [address] [place] [address] venous Normal Red Cell Distribution Wid th 13.7 % 11.5-14.5 % [facility]: [address] [place] [address] Blood venous Normal Platelet Count, Automated 288 10 150-450 10 [facility]: [address] [place] [address] venous Normal Neutrophils % 61.9 % 36.0-66. 0 % [facility]: [address] [place] [address] venous Normal Lymph % 27.5 % 24.0-44.0 % [facility]: [address] [place] [address] Blood venous High [place] % 8.3 % 2.0-8.0 % [facility]: [address] [place] [address] Blood venous Normal Eos % 0.6 % 0.0-3.0 % [facility]: [address] [place] [address] Blood venous High Baso % 1.1 % 0.0-1.0 % [facility]: [address] [place] [address] Blood venous Normal Immature Granulocyte % 0.6 % 0-3.0 % [facility]: [address] [place] [address] Blood venous Normal Nucleated Red Blood Cell % 0. 0 % 0-0 % [facility]: [address] [place] [address] Blood venous Normal Neutrophils # 4.5 10 1.5-8.5 10 [facility]: [address] [place] [address] Blood venous Normal Lymph # 2.0 10 1.5-5.0 10 [facility]: [address] [place] [address] Blood venous Normal [place] # 0.6 10 0.0-0.8 10 [facility]: [address] [place] [address] Blood venous Normal Eos # 0.0 10 0.0-0.5 10 [facility]: [address] [place] [address] Blood venous Normal Baso # 0.1 10 0.0-0.2 10 [facility]: [address] [place] [address] 03/03/2021 CMP, Serum or Plasma Blood venous Normal Glu cose, Fasting 79 mg/dL 70-100 mg/dL [facility] nter: [address] [place] [address] Blood venous Normal Blood Urea Nitrogen 12 mg/dL 7-18 mg/dL [facility]: [address] [place] [address] Blood venous Normal Creatinine for GFR 0.74 mg/dL 0.55-1.30 mg/dL [facility]: [address] [place] [address] Blood venous Normal Glomerular Filtration Rate > 60.0 >58 [facility]: [address] [place] [address] Blood venous Normal Sodium Level 141 mEq/L 136-14 5 mEq/L [facility]: [address] [place] [address] Blood venous Normal Potassium Serum 4.7 mEq/L 3.5 -5.1 mEq/L [facility]: [address] [place] [address] Blood venous Normal Chloride Level 106 mEq/L 98-1 07 mEq/L [facility]: [address] [place] [address] Blood venous Normal Carbon Dioxide Level 27 mEq/L 21-32 mEq/L [facility]: [address] [place] [address] Blood venous Normal Anion Gap 8 mEq/L 8-16 mEq/L [facility]: [address] [place] [address] Blood venous Normal Calcium Level 9.3 mg/dL 8.5-1 0.1 mg/dL [facility]: [address] [facility] Blood venous Normal AST/SGOT 21 U/L 7-37 U/L [facility]: [address] [facility] Blood venous Normal ALT/SGPT 36 U/L 12-78 U/L [facility]: [address] [facility] Blood venous High Alkaline Phosphatase 121 U/L 45-117 U/L [facility]: [address] [facility] Blood venous Normal Bilirubin,total 0.3 mg/dL 0.2 -1.0 mg/dL [facility]: [address] [facility] Blood venous Normal Total Protein 7.6 gm/dL 6.4-8 .2 gm/dL [facility]: [address] [place] [address] Blood venous Normal Albumin 3.6 gm/dL 3.2-5.2 gm/ dL [facility]: [address] [place] [address] Blood venous Low Albumin/globulin Ratio 0.9 1.2-2.2 [facility]: [address] [facility] 03/03/2021 Lipid Panel, Blood Blood venous High Trigl ycerides Level 314 mg/dL <150 mg/dL [facility] nter: [address] [facility] Blood venous High Cholesterol Level 231 mg/dL < 200 mg/dL [facility]: [address] [facility] Blood venous Low HDL Cholesterol 31 mg/dL >40 mg/dL [facility]: 0 [facility] Blood venous High LDL Cholesterol 137 mg/dL <10 0 mg/dL [facility]: [address] [facility] Blood venous Normal Non-hdl-c 200 mg/dL Fi [facility]: 0 [facility] Blood venous High Cholesterol Risk Ratio 7.451 <5 [facility]: [address] [facility] 03/03/2021 TSH + Free T4, Serum Blood venous Normal Thyroid Stimulating Hormone 0.562 uIU/mL 0.358-3.740 uIU/mL [facility] ical Center: [address] [facility] Blood venous Normal Free T4 1.27 NG/dL 0.76-1.46 NG/dL [facility]: [address] [facility] 03/03/2021 T3, Total, Serum Blood venous Normal Total T3 144 .6 NG/dL 60.0- 181.0 NG/dL [facility]: 83 0 [facility] 03/03/2021 Thyroid Peroxidase (Tpo) Ab, Serum High Thyroid Peroxidase Antibody 507.7 U/mL <60.0 U/mL [facility] Center: [address] [facility] 01/14/2021 CBC W/ Auto Diff Blood venous Normal White Blood C ount 8.7 10 4.0-10.0 10 [facility]: 83 0 [facility] Blood venous Normal Red Blood Count 4.26 10 4.00- 5.40 10 [facility]: [address] [facility] Blood venous Normal Hemoglobin 12.3 g/dL 12.0-15. 5 g/dL [facility]: [address] [facility] Blood venous Normal Hematocrit 38.8 % 36.0-47.0 % [facility]: [address] [facility] Blood venous Normal Mean Corpuscular Volume 91.1 fL 80.0-96.0 fL [facility]: [address] [facility] Blood venous Normal Mean Corpuscular Hemoglob in 28.9 pg 27.0-33.0 pg [facility]: [address] [facility] Blood venous Low Mean Corpuscular HGB Conc 31.7 g/dL 32.0-36.5 g/dL [facility]: [address] [facility] Blood venous High Red Cell Distribution Width 1 4.6 % 11.5-14.5 % [facility]: [address] [facility] Blood venous Normal Platelet Count, Automated 237 10 150-450 10 [facility]: 0 [facility] Blood venous Normal Neutrophils % 65.8 % 36.0-66. 0 % [facility]: [address] [place] [address] Blood venous Low Lymph % 23.0 % 24.0-44.0 % [facility]: [address] [facility] Blood venous Normal [place] % 7.8 % 2.0-8.0 % [facility]: [address] [place] [address] Blood venous Normal Eos % 0.9 % 0.0-3.0 % [facility]: [address] [place] [address] Blood venous High Baso % 1.5 % 0.0-1.0 % [facility]: [address] [place] [address] Blood venous Normal Immature Granulocyte % 1.0 % 0-3.0 % [facility]: [address] [place] [address] Blood venous Normal Nucleated Red Blood Cell % 0. 0 % 0-0 % [facility]: [address] [place] [address] Blood venous Normal Neutrophils # 5.8 10 1.5-8.5 10 [facility]: [address] [place] [address] Blood venous Normal Lymph # 2.0 10 1.5-5.0 10 [facility]: 0 [facility] Blood venous Normal [place] # 0.7 10 0.0-0.8 10 [facility]: [address] [place] [address] Blood venous Normal Eos # 0.1 10 0.0-0.5 10 [facility]: [address] [place] [address] Blood venous Normal Baso # 0.1 10 0.0-0.2 10 [facility]: [address] [place] [address] 01/14/2021 Urinalysis, Dipstick Normal Appearance, Urine hazy clear [facility]: [address] [place] [address] Normal Color, Urine yellow yellow [facility]: [address] [place] [address] Normal pH,urine 6.0 units 5.0-9.0 units [facility]: [address] [place] [address] Normal Specific [place] Urine Auto 1.020 1 .002-1.035 [facility]: [address] [facility] Normal Protein, Urine Auto negative mg/dL n egative mg/dL [facility]: [address] [facility] Normal Glucose, Urine (UA) Auto negative mg /dL negative mg/dL [facility]: [address] [facility] Normal Ketone, Urine Auto negative mg/dL ne gative mg/dL [facility]: [address] [facility] Normal Urobilinogen, Urine Auto 0.2 mg/dL 0 .0-2.0 mg/dL [facility]: [address] [facility] Normal Bilirubin, Urine Auto negative negat jono [facility]: [address] [facility] Normal Nitrite, Urine Auto negative negativ e [facility]: [address] [facility] Normal Leukocyte Esterase, Urine Auto negat jono negative [facility]: [address] [facility] Normal Blood, Urine Blood negative negative [facility]: [address] [facility] Normal WBC, Urine Auto 1 /hpf 0-3 /hpf [facility]: [address] [facility] Normal RBC, Urine Auto 0 /hpf 0-3 /hpf [facility]: [address] [facility] Normal Bacteria, Urine Auto negative negati ve [facility]: [address] [facility] Normal Squamous Epithelial Cell Ur AU 6 /hp f 0-6 /hpf [facility]: [address] [facility] Normal Hyaline Cast, Urine Auto 0 /lpf 0-1 /lpf [facility]: [address] [facility] 01/14/2021 CMP, Serum or Plasma Blood venous Normal Glu cose, Fasting 92 mg/dL 70-100 mg/dL [facility] nter: [address] [facility] Blood venous Normal Blood Urea Nitrogen 16 mg/dL 7-18 mg/dL [facility]: [address] [facility] Blood venous Normal Creatinine for GFR 0.95 mg/dL 0.55-1.30 mg/dL [facility]: [address] [facility] Blood venous Normal Glomerular Filtration Rate > 60.0 >58 [facility]: [address] [facility] Blood venous Normal Sodium Level 140 mEq/L 136-14 5 mEq/L [facility]: [address] [facility] Blood venous Normal Potassium Serum 4.1 mEq/L 3.5 -5.1 mEq/L [facility]: [address] [facility] Blood venous Normal Chloride Level 106 mEq/L 98-1 07 mEq/L [facility]: [address] [facility] Blood venous Normal Carbon Dioxide Level 27 mEq/L 21-32 mEq/L [facility]: [address] [facility] Blood venous Low Anion Gap 7 mEq/L 8-16 mEq/L [facility]: [address] [facility] Blood venous Normal Calcium Level 9.3 mg/dL 8.5-1 0.1 mg/dL [facility]: [address] [facility] Blood venous Normal AST/SGOT 30 U/L 7-37 U/L [facility]: [address] [facility] Blood venous Normal ALT/SGPT 37 U/L 12-78 U/L [facility]: [address] [facility] Blood venous High Alkaline Phosphatase 171 U/L 45-117 U/L [facility]: [address] [facility] Blood venous Normal Bilirubin,total 0.3 mg/dL 0.2 -1.0 mg/dL [facility]: [address] [facility] Blood venous Normal Total Protein 7.6 gm/dL 6.4-8 .2 gm/dL [facility]: 0 [facility] Blood venous Normal Albumin 3.7 gm/dL 3.2-5.2 gm/ dL [facility]: [address] [place] [address] Blood venous Low Albumin/globulin Ratio 0.9 1.2-2.2 [facility]: [address] [place] [address] 01/14/2021 Lipid Panel, Blood Blood venous High Trigl ycerides Level 285 mg/dL <150 mg/dL [facility] nter: [address] [place] [address] Blood venous High Cholesterol Level 312 mg/dL < 200 mg/dL [facility]: [address] [place] [address] Blood venous Low HDL Cholesterol 34 mg/dL >40 mg/dL [facility]: [address] [place] [address] Blood venous High LDL Cholesterol 221 mg/dL <10 0 mg/dL [facility]: [address] [place] [address] Blood venous Normal Non-hdl-c 278 mg/dL Fi [facility]: [address] [place] [address] Blood venous High Cholesterol Risk Ratio 9.176 <5 [facility]: [address] [place] [address] 01/14/2021 TSH + Free T4, Serum Blood venous High Thyroid Stimulating Hormone 67.900 uIU/mL 0.358-3.740 uIU/mL [facility] ical Center: [address] [place] [address] Blood venous Low Free T4 0.52 NG/dL 0.76-1.46 NG/dL [facility]: [address] [place] [address] 01/14/2021 Vitamin D, 25-Hydroxy, Total, Serum Blood venous Low Total 25(Oh) Vitamin D 15.4 NG/mL 30.0-100.0 NG/mL [facility]: [address] [place] [address] 01/14/2021 HbA1C (Hemoglobin a1C), Blood Blood venous Normal Hemoglobin a1C 5.8 % [facility] Center: [address] [place] [address] Blood venous High Estimated Average Glucose 120 mg/dL 60-110 mg/dL [facility]: [address] [place] [address] 01/14/2021 Culture, Urine URINE,CLEAN CATCH No observation recorded. [facility]: [address] [place] [address] Past Encounters 05/11/2021 Enlarged Uterus; Prediabetes; Body Mass Index 40+ - Severely Obese; Patient Asked to Attend; Abdominal Pain Ree Artegaa, CANDY [employer]: [address] [place] [phone], Ph. 03/11/2021 Screening for Malignant Neoplasm of Cervix; Body Mass Index 40+ - Severely Obese; Adult Health Examination; Elevated Blood-pressure Reading without Diagnosis of Hypertension [facility]: [address] [place] [phone], Ph. 03/03/2021 Body Mass Index 40+ - Severely Obese; Abdominal Bloating; Hypothyroidism; Mixed Hyperlipidemia; Screening for Malignant Neoplasm of Cervix; Patient Asked to Attend [facility]: [address] [place] [phone], Ph. 01/14/2021 [facility]: [address] [place] [phone], Ph. 01/07/2021 Abdominal Bloating; Depressive Disorder [facility]: [address] [place] [phone], Ph. Social History Tobacco Smoking Status Former [...] Surgeries None recorded. Imaging None recorded. Vitals 05/11/2021 03:00PM SAME DAY 20 Height Weight BMI Blood Pressure 67 in 264 lbs 41.3 kg/m2 131/88 mm[Hg] 03/11/2021 08:00AM PAP SMEAR Height Weight BMI Blood Pressure 67 in 274 lbs 16 oz 43.1 kg/m2 140/85 mm[Hg] 03/03/2021 10:20AM ESTABLISHED [id number] Height Weight BMI Blood Pressure 67 in [...]
--- OUTSIDE RECORDS SUMMARY | 2021-07-13 11:39 | CCD | Continuity of Care Document ---
Author Author Rosetta ROSAS MD Organization Unknown Address [address] [place] [id number] Phone [phone] Care Team Providers Care Lens Generator Name Role Phone Komal Yadav F.N.P. AUTM [phone] Alicia StroudN.P. AUTM [phone] Ree Arteaga.N.P. AUTM Problems Description No Active Problems Social History [...] lb BMI (Body Mass Index) 42.3 kg/m2 [place] Body Weight 135 lb Weight 122.472 kg BSA (Body Surface Area) 2.30 m2 05/28/2015 3:15pm BP Systolic 105 mmHg BP Diastolic 67 mmHg Height 67 inches 5'7" Weight 225.00 lb BMI (Body Mass Index) 35.2 kg/m2 [place] Body Weight 135 lb Weight 102.060 kg BSA (Body Surface Area) 2.13 m2 Results Test Acquired Date Facility Test Result H/L Range Note Laboratory test finding 04/01/2021 [facility] Lab [address] [place] [address] [phone] Tissue Transglutaminase IgA <2 U/mL Normal 0-3 1 Immunoglobulin A 178.0 mg/dL Normal 70-400 2 1 Negative 0 - 3 Weak Positive 4 - 10 Positive >10 . Tissue Transglutaminase (tTG) has been identified as the endomysial antigen. Studies have demonstr- ated that endomysial IgA antibodies have over 99% specificity for gluten sensitive enteropathy. Performed at: RN - [facility] [address] [id number] [employer] Attendant: Kimberly Castellon MD, Phone: [phone] 04/19/21 (TueApr 19) 06:57 PM ANITA ROSAS neg Procedures Date Code Description Status 04/01/2021 52194 Office/Outpatient New Moderate M DM 45-59 Minutes Completed Medical Devices Description No Information Available Encounters Type Date Location Provider Dx Diagnosis Office Visit 04/01/2021 8:45a [facility] Anita Rosas MD R10.12 [...] esophagitis Anita Rosas MD Plan of Treatment 04/01/2021 - Anita Rosas MD* R10.12 Left [...] R14.0 ABDOMINAL DISTENSION, R19.7 DIARRHEA Scheduled 04/01/2021 [facility], Gastroenterology [address], [address] [place] [address] [phone]
--- OUTSIDE RECORDS SUMMARY | 2021-07-13 11:41 | CCD ---
Author Author [facility] Organization [facility] Address Unknown Phone Unavailable Care Team Providers Care Licensing Engineer Name Role Phone ANITA MARADIAGA MD Unavailable Unavailable ANITA MARADIAGA MD Unavailable Unavailable ANITA MARADIAGA MD Unavailable Unavailable ANITA MARADIAGA MD Unavailable Unavailable ANITA MARADIAGA MD Unavailable Unavailable ANITA MARADIAGA MD Unavailable Unavailable ANITA MARADIAGA MD Unavailable Unavailable ANITA MARADIAGA MD Unavailable Unavailable ANITA MARADIAGA MD Unavailable Unavailable ANITA MARADIAGA MD Unavailable Unavailable ANITA MARADIAGA MD Unavailable Unavailable ANITA MARADIAGA MD Unavailable Unavailable ANITA MARADIAGA MD Unavailable Unavailable ANITA MARADIAGA MD Unavailable Unavailable ANITA MARADIAGA MD Unavailable Unavailable ANITA MARADIAGA MD Unavailable Unavailable ANITA MARADIAGA MD Unavailable Unavailable ANITA MARADIAGA MD Unavailable Unavailable ANITA MARADIAGA MD Unavailable Unavailable ANITA MARADIAGA MD Unavailable Unavailable ANITA MARADIAGA MD Unavailable Unavailable ANITA MARADIAGA MD Unavailable Unavailable ANITA MARADIAGA MD Unavailable Unavailable REINDL, ANITA ARBOLEDA Unavailable Unavailable REINDL, ANITA ARBOLEDA Unavailable Unavailable REINDL, ANITA ARBOLEDA Unavailable Unavailable REINDL, ANITA ARBOLEDA Unavailable Unavailable REINDL, ANITA ARBOLEDA Unavailable Unavailable REINDL, ANITA ARBOLEDA Unavailable Unavailable REINDL, ANITA ARBOLEDA Unavailable Unavailable REINDL, ANITA ARBOLEDA Unavailable Unavailable REINDL, ANITA ARBOLEDA Unavailable Unavailable REINDL, ANITA ARBOLEDA Unavailable Unavailable REINDL, ANITA ARBOLEDA Unavailable Unavailable REINDL, ANITA ARBOLEDA Unavailable Unavailable REINDL, ANITA ARBOLEDA Unavailable Unavailable REINDL, ANITA ARBOLEDA Unavailable Unavailable REINDL, ANITA ARBOLEDA Unavailable Unavailable REINDL, ANITA ARBOLEDA Unavailable Unavailable REINDL, ANITA ARBOLEDA Unavailable Unavailable REINDL, ANITA ARBOLEDA Unavailable Unavailable REINDL, ANITA ARBOLEDA Unavailable Unavailable Ree Arteaga STREET CLEANING EQUIPMENT OPERATOR STREET CLEANING EQUIPMENT OPERATOR Unavailable Unavailable Symenow, Patricia Alicia PA Unavailable Unavailable Symenow, Patricia Alicia PA Unavailable Unavailable Symenow, Patricia Alicia PA Unavailable Unavailable Symenow, Patricia Alicia PA Unavailable Unavailable Symenow, Patricia Alicia PA Unavailable Unavailable Symenow, Patricia Alicia PA Unavailable Unavailable Symenow, Patricia Alicia PA Unavailable Unavailable Symenow, Patricia Alicia PA Unavailable Unavailable Symenow, Patircia Alicia PA Unavailable Unavailable Symenow, Patricia Alicia PA Unavailable Unavailable Symenow, Patricia Alicia PA Unavailable Unavailable Symenow, Patricia Alicia PA Unavailable Unavailable Symenow, Patricia Alicia PA Unavailable Unavailable Symenow, Patricia Alicia PA Unavailable Unavailable Symenow, Patricia Alicia PA Unavailable Unavailable Symenow, Patricia Alicia PA Unavailable Unavailable Symenow, Patricia Ailcia PA Unavailable Unavailable Symenow, Patricia Alicia PA Unavailable Unavailable Symenow, Patricia Alicia PA Unavailable Unavailable Symenow, Patricia Alicia PA Unavailable Unavailable Symenow, Patricia Alicia PA Unavailable Unavailable Symenow, Patricia Alicia PA Unavailable Unavailable Symenow, Patricia Alicia PA Unavailable Unavailable Symenow, Patricia Alicia PA Unavailable Unavailable Symenow, Patricia Alicia PA Unavailable Unavailable Symenow, Patricia Alicia PA Unavailable Unavailable Symenow, Patricia Alicia PA Unavailable Unavailable Symenow, Patricia Alicia PA Unavailable Unavailable Symenow, Patricia Alicia PA Unavailable Unavailable Symenow, Patricia Alicia PA Unavailable Unavailable Symenow, Patricia Alicia PA Unavailable Unavailable Symenow, Patricia Alicia PA Unavailable Unavailable Symenow, Patricia Alicia PA Unavailable Unavailable Symenow, Patricia Alicia PA Unavailable Unavailable Chandler, A Ree STREET CLEANING EQUIPMENT OPERATOR Unavailable Unavailable [place], A Ree STREET CLEANING EQUIPMENT OPERATOR Unavailable Unavailable [place], A Ree STREET CLEANING EQUIPMENT OPERATOR Unavailable Unavailable [place], A Ree STREET CLEANING EQUIPMENT OPERATOR Unavailable Unavailable [place], A Ree STREET CLEANING EQUIPMENT OPERATOR Unavailable Unavailable [place], A Ree STREET CLEANING EQUIPMENT OPERATOR Unavailable Unavailable [place], A Ree STREET CLEANING EQUIPMENT OPERATOR Unavailable Unavailable [place], A Ree STREET CLEANING EQUIPMENT OPERATOR Unavailable Unavailable [place], A Ree STREET CLEANING EQUIPMENT OPERATOR Unavailable Unavailable [place], A Ree STREET CLEANING EQUIPMENT OPERATOR Unavailable Unavailable [place], A Ree STREET CLEANING EQUIPMENT OPERATOR Unavailable Unavailable [place], A Ree STREET CLEANING EQUIPMENT OPERATOR Unavailable Unavailable [place], A Ree STREET CLEANING EQUIPMENT OPERATOR Unavailable Unavailable [place], A Ree STREET CLEANING EQUIPMENT OPERATOR Unavailable Unavailable [place], A Ree STREET CLEANING EQUIPMENT OPERATOR Unavailable Unavailable [place], A Ree STREET CLEANING EQUIPMENT OPERATOR Unavailable Unavailable [place], A Ree STREET CLEANING EQUIPMENT OPERATOR Unavailable Unavailable [place], A Ree STREET CLEANING EQUIPMENT OPERATOR Unavailable Unavailable [place], A Ree STREET CLEANING EQUIPMENT OPERATOR Unavailable Unavailable [place], A Ree STREET CLEANING EQUIPMENT OPERATOR Unavailable Unavailable [place], A Ree STREET CLEANING EQUIPMENT OPERATOR Unavailable Unavailable [place], A Ree STREET CLEANING EQUIPMENT OPERATOR Unavailable Unavailable [place], A Ree STREET CLEANING EQUIPMENT OPERATOR Unavailable Unavailable [place], A Ree STREET CLEANING EQUIPMENT OPERATOR Unavailable Unavailable [place], A Ree STREET CLEANING EQUIPMENT OPERATOR Unavailable Unavailable [place], A Ree STREET CLEANING EQUIPMENT OPERATOR Unavailable Unavailable [place], A Ree STREET CLEANING EQUIPMENT OPERATOR Unavailable Unavailable [place], A Ree STREET CLEANING EQUIPMENT OPERATOR Unavailable Unavailable [place], A Ree STREET CLEANING EQUIPMENT OPERATOR Unavailable Unavailable [place], A Ree STREET CLEANING EQUIPMENT OPERATOR Unavailable Unavailable [place], A Ree STREET CLEANING EQUIPMENT OPERATOR Unavailable Unavailable [place], A Ree STREET CLEANING EQUIPMENT OPERATOR Unavailable Unavailable [place], A Ree STREET CLEANING EQUIPMENT OPERATOR Unavailable Unavailable [place], A Ree STREET CLEANING EQUIPMENT OPERATOR Unavailable Unavailable [place], A Ree STREET CLEANING EQUIPMENT OPERATOR Unavailable Unavailable [place], A Ree STREET CLEANING EQUIPMENT OPERATOR Unavailable Unavailable [place], A Ree STREET CLEANING EQUIPMENT OPERATOR Unavailable Unavailable [place], A Ree STREET CLEANING EQUIPMENT OPERATOR Unavailable Unavailable [place], A Ree STREET CLEANING EQUIPMENT OPERATOR Unavailable Unavailable [place], A Ree STREET CLEANING EQUIPMENT OPERATOR Unavailable Unavailable [place], A Ree STREET CLEANING EQUIPMENT OPERATOR Unavailable Unavailable Chandler, A Ree STREET CLEANING EQUIPMENT OPERATOR Unavailable Unavailable Chandler, A Ree STREET CLEANING EQUIPMENT OPERATOR Unavailable Unavailable Chandler, A Ree STREET CLEANING EQUIPMENT OPERATOR Unavailable Unavailable Chandler, A Ree STREET CLEANING EQUIPMENT OPERATOR Unavailable Unavailable Chandler, A Ree STREET CLEANING EQUIPMENT OPERATOR Unavailable Unavailable Chandler, A Ree STREET CLEANING EQUIPMENT OPERATOR Unavailable Unavailable Chandler, A Ree STREET CLEANING EQUIPMENT OPERATOR Unavailable Unavailable Chandler, A Ree STREET CLEANING EQUIPMENT OPERATOR Unavailable Unavailable Chandler, A Ree STREET CLEANING EQUIPMENT OPERATOR Unavailable Unavailable Chandler, A Ree STREET CLEANING EQUIPMENT OPERATOR Unavailable Unavailable Chandler, A Ree STREET CLEANING EQUIPMENT OPERATOR Unavailable Unavailable Chandler, A Ree STREET CLEANING EQUIPMENT OPERATOR Unavailable Unavailable Chandler, A Ree STREET CLEANING EQUIPMENT OPERATOR Unavailable Unavailable Chandler, A Ree STREET CLEANING EQUIPMENT OPERATOR Unavailable Unavailable Chandler, A Ree STREET CLEANING EQUIPMENT OPERATOR Unavailable Unavailable Chandler, A Ree STREET CLEANING EQUIPMENT OPERATOR Unavailable Unavailable Chandler, A Ree STREET CLEANING EQUIPMENT OPERATOR Unavailable Unavailable Chandler, A Ree STREET CLEANING EQUIPMENT OPERATOR Unavailable Unavailable Chandler, A Ree STREET CLEANING EQUIPMENT OPERATOR Unavailable Unavailable Chandler, A Ree STREET CLEANING EQUIPMENT OPERATOR Unavailable Unavailable Chandler, A Ree STREET CLEANING EQUIPMENT OPERATOR Unavailable Unavailable Re-disclosure Warning The records that you are about to access may contain information from federally-assisted alcohol or drug abuse programs. If such information is present, then the following federally mandated warning applies: This information has been disclosed to you from records protected by federal confidentiality rules (42 CFR part 2). The federal rules prohibit you from making any further disclosure of this information unless further disclosure is expressly permitted by the written consent of the person to whom it pertains or as otherwise permitted by 42 CFR part 2. A general authorization for the release of medical or other information is NOT sufficient for this purpose. The Federal rules restrict any use of the information to criminally investigate or prosecute any alcohol or drug abuse patient.The records that you are about to access may contain highly sensitive health information, the redisclosure of which is protected by Article 27-F of the [facility] Public Health law. If you continue you may have access to information: Regarding HIV / AIDS; Provided by facilities licensed or operated by the [facility] Office of Mental Health; or Provided by the [facility] Office for People With Developmental Disabilities. If such information is present, then the following [facility] mandated warning applies: This information has been disclosed to you from confidential records which are protected by state law. State law prohibits you from making any further disclosure of this information without the specific written consent of the person to whom it pertains, or as otherwise permitted by law. Any unauthorized further disclosure in violation of state law may result in a fine or halfway sentence or both. A general authorization for the release of medical or other information is NOT sufficient authorization for further disc losure. Family History Family Member Name Family Member Gender Family Member Status Date o f Status Description Data Source(s) Unknown Male Problem [facility] ([facility]) Unknown Unknown Problem [facility] ([facility] Encounters Encounter Providers Location Date Indications Data Source(s ) [facility] Kidd: [address], [place] [address], Ph. Attender: Ree Arteaga [facility] 06/29/2021 12:00:00 AM EDT [place] [facility] [address] [facility] [address] 06/16/2021 12:00:00 AM EDT [facility] ([facility]) M[facility] Kidd: [address], [place] [address], Ph. Attender: Ree Arteaga [facility] Medical 05/11/2021 12:00:00 AM EDT [place] [facility] [address] [place] [address], Ph. Attender: Ree Arteaga [facility] Medical 05/11/2021 12:00:00 AM EDT [place] [facility] Outpatient Attender: ANITA King/Anibal/Branden/Neil medeiros 04/01/2021 08:45:00 AM EDT [facility] ([facility] [address], [place] [address], Ph. Attender: Ree Arteaga [facility] Medical 03/11/2021 12:00:00 AM EDT [place] [facility] Ree Arteaga [facility]: [address], [place] [address], Ph. Attender: Ree Arteaga [facility] Medical 03/11/2021 12:00:00 AM EDT [place] [facility] Ree Arteaga [facility]: [address], [place] [address], Ph. Attender: Ree Arteaga [facility] Medical 03/11/2021 12:00:00 AM EDT [place] [facility] Ree Arteaga [facility]: [address], [place] [address], Ph. Attender: Ree Arteaga [facility] Medical 03/03/2021 12:00:00 AM EDT [place] [facility] Ree Arteaga [facility]: [address], [place] [address], Ph. Attender: Ree Arteaga [facility] Medical 03/03/2021 12:00:00 AM EDT [place] [facility] Ree Arteaga [facility]: [address], [place] [address], Ph. Attender: Ree Arteaga [facility] Medical 03/03/2021 12:00:00 AM EDT [place] [facility]) Ree Arteaga [facility]: [address], [place] [address], Ph. Attender: Ree Arteaga STREET CLEANING EQUIPMENT OPERATOR [facility] Medical 03/03/2021 12:00:00 AM EDT [place] [facility] Ree Arteaga [facility]: [address], [place] [address], Ph. Attender: Ree Arteaga [facility] Medical 01/14/2021 12:00:00 AM EDT [place] [facility]) Ree Arteaga [facility]: [address], [place] [address], Ph. Attender: Ree Arteaga [facility] Medical 01/14/2021 12:00:00 AM EDT [place] [facility]) Ree Arteaga [facility]: [address], [place] [address], Ph. Attender: Ree Arteaga [facility] Medical 01/14/2021 12:00:00 AM EDT [place] [facility]) Ree Arteaga [facility]: [address], [place] [address], Ph. Attender: Ree Arteaga [facility] Medical 01/14/2021 12:00:00 AM EDT [place] [facility]) Ree Arteaga [facility]: [address], [place] [address], Ph. Attender: Ree Arteaga [facility] Medical 01/14/2021 12:00:00 AM EDT [place] [facility]) Ree Arteaga [facility]: [address], [place] [address], Ph. Attender: Ree Arteaga [facility] Medical 01/07/2021 12:00:00 AM EDT [place] [facility]) Ree Arteaga [facility]: [address], [place] [address], Ph. Attender: Ree Arteaga [facility] Medical 01/07/2021 12:00:00 AM EDT [place] [facility]) Ree Arteaga [facility]: [address], [place] [address], Ph. Attender: Ree Arteaga [facility] Medical 01/07/2021 12:00:00 AM EDT [place] [facility] [address], [place] [address], Ph. Attender: Ree Arteaga [facility] Medical 01/07/2021 12:00:00 AM EDT [place] [facility]) Ree Arteaga [facility]: [address], [place] [address], Ph. Attender: Ree Arteaga [facility] Medical 01/07/2021 12:00:00 AM EDT [place] [facility]) Ree Arteaga [facility]: [address], [place] [address], Ph. Attender: Ree Arteaga [facility] Medical 01/07/2021 12:00:00 AM EDT [place] [facility]) Outpatient Attender: Ree Arteaga [facility] 07/06/2020 02:5 6:02 AM EDT [facility] Outpatient Attender: Ree Arteaga [facility] 07/06/2020 02:5 5:00 AM EDT [facility] Outpatient Attender: MARAL Arteaga STREET CLEANING EQUIPMENT OPERATOR [facility] 07/01/2020 07:11:02 A M EDT [facility] Outpatient Attender: Alicia TILLMAN Main Office 06/30/2020 11:30:00 AM EDT [place] ([facility]) Outpatient Attender: MARAL Arteaga STREET CLEANING EQUIPMENT OPERATOR [facility] 06/30/2020 11:26:05 A M EDT [facility] Outpatient Attender: Ree Arteaga STREET CLEANING EQUIPMENT OPERATOR [facility] 06/30/2020 11:2 6:03 AM EDT [facility] Outpatient Attender: MARAL Arteaga STREET CLEANING EQUIPMENT OPERATOR [facility] 06/30/2020 11:26:01 A M EDT [facility] Outpatient Attender: MARAL Arteaga STREET CLEANING EQUIPMENT OPERATOR [facility] 06/26/2020 03:57:00 P M EDT [facility] Outpatient Attender: Ree Arteaga STREET CLEANING EQUIPMENT OPERATOR [facility] 06/23/2020 12:5 8:01 PM EDT [facility] Outpatient Attender: MARAL Arteaga STREET CLEANING EQUIPMENT OPERATOR [facility] 06/18/2020 11:40:00 A M EDT [facility] Outpatient Attender: Ree Arteaga STREET CLEANING EQUIPMENT OPERATOR [facility] 05/26/2020 02:1 9:02 PM EDT [facility] Immunizations Vaccine Date Status Description Data Source(s) COVID-19 VACCINE Pfizer 12/24/2020 12:00:00 AM EDT completed [facility] Vaccine Series Complete: YESThis Data wa s Submitted to [facility] Via [facility]. COVID-19, mRNA, LNP-S, PF, 100 mcg/0.5 mL dose 12/23/2020 12 :00:00 AM EDT completed 12/23/2020 [place] [facility] COVID-19, mRNA, LNP-S, PF, 100 mcg/0.5 mL dose 12/23/2020 12 :00:00 AM EDT completed 12/23/2020 [place] [facility]) COVID-19, mRNA, LNP-S, PF, 100 mcg/0.5 mL dose 12/03/2020 12 :00:00 AM EST completed 12/03/2020 [place] [facility]) COVID-19, mRNA, LNP-S, PF, 100 mcg/0.5 mL dose 12/03/2020 12 :00:00 AM EST completed 12/03/2020 [place] [facility]) COVID-19 VACCINE Pfizer 12/03/2020 12:00:00 AM EST completed [facility] Vaccine Series Complete: NOThis Data was Submitted to [facility] Via [employer]. Medications Medication Brand Name Start Date Product Form Dose Route Admi nistrative Instructions Pharmacy Instructions Status Indications Reaction Description Data Source(s) 100 mg 04/09/2021 12:00:00 AM EDT tablet 30 TAKE ONE TABLET BY MOUTH EVERY DAY DIRECTED TAKE ONE TABLET BY MOUTH EVERY DAY DIRECTED SOLD: [facility] 100 mg 04/09/2021 12:00:00 AM EDT tablet 30 TAKE ONE TABLET BY MOUTH EVERY DAY DIRECTED TAKE ONE TABLET BY MOUTH EVERY DAY DIRECTED SOLD: [facility] 100 mg 04/09/2021 12:00:00 AM EDT tablet 30 TAKE ONE TABLET BY MOUTH EVERY DAY DIRECTED TAKE ONE TABLET BY MOUTH EVERY DAY DIRECTED SOLD: 021 [facility] 400 mg/5 mL 04/01/2021 12:00:00 AM EDT suspension 355 TAKE 45ML BY MOUTH 1-2 DAYS BEFORE COLONOSCOPY PREP TAKE 45ML BY MOUTH 1-2 DAYS BEFORE COLON OSCOPY PREP SOLD: 04/02/2021 [facility] Magnesium Hydroxide 80 MG/ML Oral Suspension Milk Of Magnesi a 04/01/2021 12:00:00 AM EDT ORAL active M [facility] ([facility], ) POLYETHYLENE GLYCOL 3350 142 MG/ML Oral Solution [Miralax] M iralax 04/01/2021 12:00:00 AM EDT active [facility] ([facility], ) Dicyclomine Hydrochloride 10 MG Oral Capsule Dicyclomine HCL 04/01/2021 12:00:00 AM EDT ORAL active [facility] ([facility], ) 10 mg 04/01/2021 12:00:00 AM EDT capsule 90 TAKE 1-2 CAPSULES BY MOUTH EVERY 6 HOURS NEEDED FOR ABDOMINAL CRAMPING TAKE 1-2 CAPSULES BY MOUTH EVERY 6 HOURS NEEDED FOR ABDOMINAL CRAMPING SOLD: 04/02/2021 [facility] 17 gram/dose 04/01/2021 12:00:00 AM EDT powder 510 TAKE BY MOUTH DIRECTED - SEE DR MARADIAGA COLON PREP INSTRUCTIONS TAKE BY MOUTH DIRECTED - SEE DR MARADIAGA COLON PREP INSTRUCTIONS SOLD: 04/02/2021 [facility] 150 mg 03/24/2021 12:00:00 AM EDT tablet 2 TAKE ONE TABLET BY MOUTH, MAY REPEAT DOSE TAKE ONE TABLET BY MOUTH, MAY REPEAT DOSE SOLD: 03/25/2021 [facility] 150 mcg 03/14/2021 12:00:00 AM EDT tablet 30 TAKE ONE TABLET BY MOUTH EVERY MORNING ON AN EMPTY STOMACH TAKE ONE TABLET BY MOUTH EVERY MORNING O N AN EMPTY STOMACH SOLD: 06/15/2021 [facility] 150 mcg 03/14/2021 12:00:00 AM EDT tablet 30 TAKE ONE TABLET BY MOUTH EVERY MORNING ON AN EMPTY STOMACH TAKE ONE TABLET BY MOUTH EVERY MORNING O N AN EMPTY STOMACH SOLD: 05/11/2021 [facility] 150 mcg 03/14/2021 12:00:00 AM EDT tablet 30 TAKE ONE TABLET BY MOUTH EVERY MORNING ON AN EMPTY STOMACH TAKE ONE TABLET BY MOUTH EVERY MORNING O N AN EMPTY STOMACH SOLD: 04/10/2021 [facility] 150 mcg 03/14/2021 12:00:00 AM EDT tablet 30 TAKE ONE TABLET BY MOUTH EVERY MORNING ON AN EMPTY STOMACH TAKE ONE TABLET BY MOUTH EVERY MORNING O N AN EMPTY STOMACH SOLD: 03/14/2021 [facility] atorvastatin 40 MG Oral Tablet ATORVASTATIN CALCIUM 03/04/2021 1 2:00:00 AM EDT tablet 30 TAKE ONE TABLET BY MOUTH ONCE DA CHLOE TAKE ONE TABLET BY MOUTH ONCE DAILY SOLD: 03/04/2021 [facility] 100 mg 01/08/2021 12:00:00 AM EDT tablet 30 TAKE ONE TABLET BY MOUTH EVERY DAY DIRECTED TAKE ONE TABLET BY MOUTH EVERY DAY DIRECTED SOLD: 021 [facility] 100 mg 01/08/2021 12:00:00 AM EDT tablet 30 TAKE ONE TABLET BY MOUTH EVERY DAY DIRECTED TAKE ONE TABLET BY MOUTH EVERY DAY DIRECTED SOLD: 021 [facility] 1 gram 01/08/2021 12:00:00 AM EDT tablet 120 TAKE ONE TABLET BY MOUTH FOUR TIMES A DAY BEFORE MEALS TAKE ONE TABLET BY MOUTH FOUR TIMES A DAY BEFORE MEALS SOLD: 01/09/2021 [facility] 100 mg 01/08/2021 12:00:00 AM EDT tablet 30 TAKE ONE TABLET BY MOUTH EVERY DAY DIRECTED TAKE ONE TABLET BY MOUTH EVERY DAY DIRECTED SOLD: 021 [facility] 24 HR metoprolol succinate 25 MG Extende d Release Oral Tablet metoprolol succinate ER 25 mg tablet,extended release 24 hr TAKE ONE TABLET BY MOUTH EVERY DAY metoprolol succinate ER 25 mg tablet,ext ended release 24 hr TAKE ONE TABLET BY MOUTH EVERY DAY 01/07/2021 12:00:00 AM EDT completed 24 HR metoprolol succinate 25 MG Extended Release Oral Tablet [facility] [facility] 24 HR metoprolol succinate 25 MG Extende d Release Oral Tablet metoprolol succinate ER 25 mg tablet,extended release 24 hr TAKE ONE TABLET BY MOUTH EVERY DAY metoprolol succinate ER 25 mg tablet,ext ended release 24 hr TAKE ONE TABLET BY MOUTH EVERY DAY 01/07/2021 12:00:00 AM EDT completed 24 HR metoprolol succinate 25 MG Extended Release Oral Tablet [place] [facility] 24 HR metoprolol succinate 25 MG Extende d Release Oral Tablet metoprolol succinate ER 25 mg tablet,extended release 24 hr TAKE ONE TABLET BY MOUTH EVERY DAY metoprolol succinate ER 25 mg tablet,ext ended release 24 hr TAKE ONE TABLET BY MOUTH EVERY DAY 01/07/2021 12:00:00 AM EDT completed 24 HR metoprolol succinate 25 MG Extended Release Oral Tablet [place] [facility] 24 HR metoprolol succinate 25 MG Extende d Release Oral Tablet metoprolol succinate ER 25 mg tablet,extended release 24 hr TAKE ONE TABLET BY MOUTH EVERY DAY metoprolol succinate ER 25 mg tablet,ext ended release 24 hr TAKE ONE TABLET BY MOUTH EVERY DAY 01/07/2021 12:00:00 AM EDT completed 24 HR metoprolol succinate 25 MG Extended Release Oral Tablet [facility] [facility] 24 HR metoprolol succinate 25 MG Extende d Release Oral Tablet metoprolol succinate ER 25 mg tablet,extended release 24 hr TAKE ONE TABLET BY MOUTH EVERY DAY metoprolol succinate ER 25 mg tablet,ext ended release 24 hr TAKE ONE TABLET BY MOUTH EVERY DAY 01/07/2021 12:00:00 AM EDT completed 24 HR metoprolol succinate 25 MG Extended Release Oral Tablet [facility] [facility] 24 HR metoprolol succinate 25 MG Extende d Release Oral Tablet metoprolol succinate ER 25 mg tablet,extended release 24 hr TAKE ONE TABLET BY MOUTH EVERY DAY metoprolol succinate ER 25 mg tablet,ext ended release 24 hr TAKE ONE TABLET BY MOUTH EVERY DAY 01/07/2021 12:00:00 AM EDT completed 24 HR metoprolol succinate 25 MG Extended Release Oral Tablet [place] [facility] 150 mcg 01/06/2021 12:00:00 AM EDT tablet 30 TAKE ONE TABLET BY MOUTH EVERY MORNING ON AN EMPTY STOMACH TAKE ONE TABLET BY MOUTH EVERY MORNING O N AN EMPTY STOMACH SOLD: 01/06/2021 [facility] 150 mcg 01/06/2021 12:00:00 AM EDT tablet 30 TAKE ONE TABLET BY MOUTH EVERY MORNING ON AN EMPTY STOMACH TAKE ONE TABLET BY MOUTH EVERY MORNING O N AN EMPTY STOMACH SOLD: 02/05/2021 [facility] 50 mg 01/05/2021 12:00:00 AM EDT tablet 30 TAKE ONE TABLET BY MOUTH EVERY DAY TAKE ONE TABLET BY MOUTH EVERY DAY SOLD: 01/06/2021 [facility] 600 mg 10/27/2020 12:00:00 AM EST tablet 90 TAKE ONE TABLET BY MOUTH THREE TIMES A DAY TAKE ONE TABLET BY MOUTH THREE TIMES A DAY SOLD: 12/30/2020 [facility] 600 mg 10/27/2020 12:00:00 AM EST tablet 90 TAKE ONE TABLET BY MOUTH THREE TIMES A DAY TAKE ONE TABLET BY MOUTH THREE TIMES A DAY SOLD: 10/29/2020 [facility] 600 mg 10/27/2020 12:00:00 AM EST tablet 90 TAKE ONE TABLET BY MOUTH THREE TIMES A DAY TAKE ONE TABLET BY MOUTH THREE TIMES A DAY SOLD: 04/10/2021 [facility] 50 mg 08/25/2020 12:00:00 AM EST tablet 30 TAKE ONE TABLET BY MOUTH EVERY DAY TAKE ONE TABLET BY MOUTH EVERY DAY SOLD: 12/01/2020 [facility] 50 mg 08/25/2020 12:00:00 AM EST tablet 30 TAKE ONE TABLET BY MOUTH EVERY DAY TAKE ONE TABLET BY MOUTH EVERY DAY SOLD: 08/27/2020 [facility] 50 mg 08/25/2020 12:00:00 AM EST tablet 30 TAKE ONE TABLET BY MOUTH EVERY DAY TAKE ONE TABLET BY MOUTH EVERY DAY SOLD: 10/29/2020 [facility] 50 mg 08/25/2020 12:00:00 AM EST tablet 30 TAKE ONE TABLET BY MOUTH EVERY DAY TAKE ONE TABLET BY MOUTH EVERY DAY SOLD: 09/30/2020 [facility] 150 mcg 08/20/2020 12:00:00 AM EST tablet 30 TAKE ONE TABLET BY MOUTH EVERY MORNING ON AN EMPTY STOMACH TAKE ONE TABLET BY MOUTH EVERY MORNING O N AN EMPTY STOMACH SOLD: 08/27/2020 [facility] 150 mcg 08/20/2020 12:00:00 AM EST tablet 30 TAKE ONE TABLET BY MOUTH EVERY MORNING ON AN EMPTY STOMACH TAKE ONE TABLET BY MOUTH EVERY MORNING O N AN EMPTY STOMACH SOLD: 09/30/2020 [facility] 150 mcg 08/20/2020 12:00:00 AM EST tablet 30 TAKE ONE TABLET BY MOUTH EVERY MORNING ON AN EMPTY STOMACH TAKE ONE TABLET BY MOUTH EVERY MORNING O N AN EMPTY STOMACH SOLD: 10/29/2020 [facility] 300 mg 08/13/2020 12:00:00 AM EST capsule 30 TAKE ONE CAPSULE BY MOUTH THREE TIMES A DAY FOR 10 DAYS TAKE ONE CAPSULE BY MOUTH THREE TIMES A DAY FOR 10 DAYS SOLD: 08/13/2020 [facility] 150 mcg 07/06/2020 12:00:00 AM EDT tablet 30 TAKE ONE TABLET BY MOUTH EVERY MORNING ON AN EMPTY STOMACH DAILY TAKE ONE TABLET BY MOUTH EVERY MORNING O N AN EMPTY STOMACH DAILY SOLD: 07/18/2020 [facility] 20 mg 07/01/2020 12:00:00 AM EDT tablet 90 TAKE ONE TABLET BY MOUTH EVERY EVENING TAKE ONE TABLET BY MOUTH EVERY EVENING SOLD: 07/03/2020 [facility] Lisinopril 20 MG Oral Tablet Lisinopril 06/30/2020 12:00:00 AM EDT ORAL active [facility] ([facility]) atorvastatin 80 MG Oral Tablet Atorvastatin Calcium 06/30/2020 1 2:00:00 AM EDT ORAL active [facility] ( [facility]) 0.4 mg 06/30/2020 12:00:00 AM EDT tablet, sublingual 25 PLACE ONE TABLET UNDER THE TONGUE EVERY 5 MINUTES FOR UP TO 3 DOSES NEEDED FOR CHEST PAIN. IF CHEST PAIN STILL PERSISTS CONTACT [address] ONE TABLET UNDER THE TONGUE EVERY 5 MINUTES FOR UP TO 3 DOSES NEEDED FOR CHEST PAIN. IF CHEST PAIN STILL PERSISTS CONTACT 911 SOLD: 07/03/2020 [facility] atorvastatin 80 MG Oral Tablet ATORVASTATIN CALCIUM 06/30/2020 1 2:00:00 AM EDT tablet 90 TAKE ONE TABLET BY MOUTH AT BEDT [place] TAKE ONE TABLET BY MOUTH AT BEDTIME SOLD: 07/03/2020 [facility] 20 mg 06/30/2020 12:00:00 AM EDT capsule,delayed release (DR/EC) 30 TAKE ONE CAPSULE BY MOUTH EVERY MORNING BEFORE BREAKFAST TAKE ONE CAPSULE BY MOUTH EVERY MORNING BEFORE BREAKFAST SOLD: 08/05/2020 [facility] 20 mg 06/30/2020 12:00:00 AM EDT capsule,delayed release (DR/EC) 30 TAKE ONE CAPSULE BY MOUTH EVERY MORNING BEFORE BREAKFAST TAKE ONE CAPSULE BY MOUTH EVERY MORNING BEFORE BREAKFAST SOLD: 07/03/2020 [facility] 20 mg 06/30/2020 12:00:00 AM EDT capsule,delayed release (DR/EC) 30 TAKE ONE CAPSULE BY MOUTH EVERY MORNING BEFORE BREAKFAST TAKE ONE CAPSULE BY MOUTH EVERY MORNING BEFORE BREAKFAST SOLD: 09/15/2020 [facility] Levothyroxine Sodium 0.175 MG Oral Tablet Levothyroxine Sodi um 06/29/2020 12:00:00 AM EDT ORAL active [facility]) 150 mcg 05/20/2020 12:00:00 AM EDT tablet 30 TAKE ONE TABLET BY MOUTH EVERY MORNING ON AN EMPTY STOMACH TAKE ONE TABLET BY MOUTH EVERY MORNING O N AN EMPTY STOMACH SOLD: 05/27/2020 [facility] 50 mg 02/04/2020 12:00:00 AM EDT tablet 30 TAKE ONE TABLET BY MOUTH EVERY DAY TAKE ONE TABLET BY MOUTH EVERY DAY SOLD: 06/17/2020 [facility] 50 mg 02/04/2020 12:00:00 AM EDT tablet 30 TAKE ONE TABLET BY MOUTH EVERY DAY TAKE ONE TABLET BY MOUTH EVERY DAY SOLD: 07/18/2020 [facility] 50 mg 02/04/2020 12:00:00 AM EDT tablet 30 TAKE ONE TABLET BY MOUTH EVERY DAY TAKE ONE TABLET BY MOUTH EVERY DAY SOLD: 05/17/2020 [facility] 25 mg 12/21/2019 12:00:00 AM EDT tablet extended release 24 hr 90 TAKE ONE TABLET BY MOUTH EVERY DAY TAKE ONE TABLET BY MOUTH EVERY DAY SOLD: 09/20/2020 [facility] 25 mg 12/21/2019 12:00:00 AM EDT tablet extended release 24 hr 90 TAKE ONE TABLET BY MOUTH EVERY DAY TAKE ONE TABLET BY MOUTH EVERY DAY SOLD: 05/27/2020 [facility] 600 mg 10/15/2019 12:00:00 AM EST tablet 90 TAKE ONE TABLET BY MOUTH THREE TIMES A DAY TAKE ONE TABLET BY MOUTH THREE TIMES A DAY SOLD: 07/18/2020 [facility] chlorhexidine gluconate 1.2 MG/ML [facility] chlorhexidine gluconate 0.12 % mouthwash chlorhexidine gluconate 0.12 % mouthwash completed chlorhexidine gluconate 1.2 MG/ML Mouthwash [place] [facility] chlorhexidine gluconate 1.2 MG/ML [facility] chlorhexidine gluconate 0.12 % mouthwash chlorhexidine gluconate 0.12 % mouthwash completed chlorhexidine gluconate 1.2 MG/ML Mouthwash [place] [facility]) Amoxicillin 500 MG Oral Capsule amoxicil belkys 500 mg capsule TAKE ONE CAPSULE BY MOUTH THREE TIMES A DAY amoxicillin 500 mg capsule TAKE ONE CAPS ULE BY MOUTH THREE TIMES A DAY completed amox icillin 500 MG Oral Capsule [place] [facility]) Lisinopril 20 MG Oral Tablet lisinopril 20 mg tablet TAKE ONE TABLET BY MOUTH EVERY EVENING lisinopril 20 mg tablet TAKE ONE TABLET BY MOUTH EVERY EVENI NG completed lisinopril 20 MG Oral Tablet [facility]) atorvastatin 80 MG Oral Tablet atorvastatin 80 mg tabl et atorvastatin 80 mg tablet completed atorvastatin 80 MG Oral Tablet [place] [facility]) Lisinopril 20 MG Oral Tablet lisinopril 20 mg tablet TAKE ONE TABLET BY MOUTH EVERY EVENING lisinopril 20 mg tablet TAKE ONE TABLET BY MOUTH EVERY EVENI NG completed lisinopril 20 MG Oral Tablet [place] [facility]) clopidogrel 75 MG Oral Tablet clopidogre l 75 mg tablet TAKE ONE TABLET BY MOUTH EVERY DAY clopidogrel 75 mg tablet TAKE ONE TABLET BY MOUTH EVERY DAY completed clopidogrel 75 MG Oral Table t [place] [facility]) Levothyroxine Sodium 0.2 MG Oral Tablet levothyroxine 200 mcg tablet levothyroxine 200 mcg tablet completed levothyroxine sodium 0.2 MG Oral Tablet [facility]) Omeprazole 20 MG Delayed Release Oral Ca psule omeprazole 20 mg capsule,delayed release TAKE ONE CAPSULE BY MOUTH EVERY MORNING BEFORE BREAKFAST omeprazole 20 mg capsule,delayed release TAKE ONE CAPSULE BY MOUTH EVERY MORNING BEFORE BREAKFAST completed omep razole 20 MG Delayed Release Oral Capsule [place] [facility]) atorvastatin 80 MG Oral Tablet atorvastatin 80 mg tabl et atorvastatin 80 mg tablet completed atorvastatin 80 MG Oral Tablet [place] [facility]) Omeprazole 20 MG Delayed Release Oral Ca psule omeprazole 20 mg capsule,delayed release TAKE ONE CAPSULE BY MOUTH EVERY MORNING BEFORE BREAKFAST omeprazole 20 mg capsule,delayed release TAKE ONE CAPSULE BY MOUTH EVERY MORNING BEFORE BREAKFAST completed omep razole 20 MG Delayed Release Oral Capsule [place] ([facility]) Nitroglycerin 0.4 MG Sublingual Tablet n itroglycerin 0.[address] ONE TABLET UNDER THE TONGUE EVERY 5 MINUTES FOR UP TO 3 DOSES NEEDED FOR CHEST PAIN. IF CHEST PAIN STILL PERSISTS CONTACT 911 nitroglycerin 0.[address] ONE TABLET UNDER THE TONGUE EVERY 5 MINUTES FOR UP TO 3 DOSES NEEDED FOR CHEST PAIN. IF CHEST PAIN STILL PERSISTS CONTACT 911 completed nitroglycerin 0.4 MG Sublingual Tablet [place] [facility]) Clindamycin 300 MG Oral Capsule clindamy essence HCl 300 mg capsule TAKE ONE CAPSULE BY MOUTH THREE TIMES A DAY FOR 10 DAYS clindamycin HCl 300 mg capsule TAKE ONE CAPSULE BY MOUTH THREE TIMES A DAY FOR 10 DAYS completed clindamycin 300 MG Oral Capsule [facility] [facility]) Nitroglycerin 0.4 MG Sublingual Tablet n itroglycerin 0.[address] ONE TABLET UNDER THE TONGUE EVERY 5 MINUTES FOR UP TO 3 DOSES NEEDED FOR CHEST PAIN. IF CHEST PAIN STILL PERSISTS CONTACT 911 nitroglycerin 0.[address] ONE TABLET UNDER THE TONGUE EVERY 5 MINUTES FOR UP TO 3 DOSES NEEDED FOR CHEST PAIN. IF CHEST PAIN STILL PERSISTS CONTACT 911 completed nitroglycerin 0.4 MG Sublingual Tablet [place] [facility]) Levothyroxine Sodium 0.175 MG Oral Table t levothyroxine 175 mcg tablet TAKE 1 TABLET BY MOUTH EVERY MORNING levothyroxine 175 mcg tablet TAKE 1 TABL ET BY MOUTH EVERY MORNING completed levothyroxine sodium 0.175 MG Oral Tablet [facility] [facility]) Levothyroxine Sodium 0.175 MG Oral Table t levothyroxine 175 mcg tablet TAKE 1 TABLET BY MOUTH EVERY MORNING levothyroxine 175 mcg tablet TAKE 1 TABL ET BY MOUTH EVERY MORNING completed levothyroxine sodium 0.175 MG Oral Tablet [facility] [facility]) atorvastatin 80 MG Oral Tablet atorvastatin 80 mg tabl et atorvastatin 80 mg tablet completed atorvastatin 80 MG Oral Tablet [place] [facility]) Nitroglycerin 0.4 MG Sublingual Tablet n itroglycerin 0.[address] ONE TABLET UNDER THE TONGUE EVERY 5 MINUTES FOR UP TO 3 DOSES NEEDED FOR CHEST PAIN. IF CHEST PAIN STILL PERSISTS CONTACT 911 nitroglycerin 0.[address] ONE TABLET UNDER THE TONGUE EVERY 5 MINUTES FOR UP TO 3 DOSES NEEDED FOR CHEST PAIN. IF CHEST PAIN STILL PERSISTS CONTACT 911 completed nitroglycerin 0.4 MG Sublingual Tablet [place] [facility]) Levothyroxine Sodium 0.2 MG Oral Tablet levothyroxine 200 mcg tablet levothyroxine 200 mcg tablet completed levothyroxine sodium 0.2 MG Oral Tablet [place] [facility]) Clindamycin 300 MG Oral Capsule clindamy essence HCl 300 mg capsule TAKE ONE CAPSULE BY MOUTH THREE TIMES A DAY FOR 10 DAYS clindamycin HCl 300 mg capsule TAKE ONE CAPSULE BY MOUTH THREE TIMES A DAY FOR 10 DAYS completed clindamycin 300 MG Oral Capsule [place] ([facility]) Acetaminophen 325 MG / Oxycodone Hydroch loride 5 MG Oral Tablet oxycodone- acetaminophen 5 mg-325 mg tablet oxycodone-acetaminophen 5 mg-325 mg tablet completed acetaminop hen 325 MG / oxycodone hydrochloride 5 MG Oral Tablet [place] [facility]) Fluconazole 150 MG Oral Tablet fluconazole 150 mg tabl et fluconazole 150 mg tablet completed fluconazole 150 MG Oral Tablet [place] [facility]) Sertraline 50 MG Oral Tablet sertraline 50 mg tablet sertraline 50 mg tablet completed sertraline 50 MG Oral Tablet [place] [facility]) clopidogrel 75 MG Oral Tablet clopidogre l 75 mg tablet TAKE ONE TABLET BY MOUTH EVERY DAY clopidogrel 75 mg tablet TAKE ONE TABLET BY MOUTH EVERY DAY completed clopidogrel 75 MG Oral Table t [place] [facility]) chlorhexidine gluconate 1.2 MG/ML [facility] chlorhexidine gluconate 0.12 % mouthwash chlorhexidine gluconate 0.12 % mouthwash completed chlorhexidine gluconate 1.2 MG/ML Mouthwash [place] [facility]) Levothyroxine Sodium 0.175 MG Oral Table t levothyroxine 175 mcg tablet TAKE 1 TABLET BY MOUTH EVERY MORNING levothyroxine 175 mcg tablet TAKE 1 TABL ET BY MOUTH EVERY MORNING completed levothyroxine sodium 0.175 MG Oral Tablet [place] [facility]) Clindamycin 300 MG Oral Capsule clindamy essence HCl 300 mg capsule TAKE ONE CAPSULE BY MOUTH THREE TIMES A DAY FOR 10 DAYS clindamycin HCl 300 mg capsule TAKE ONE CAPSULE BY MOUTH THREE TIMES A DAY FOR 10 DAYS completed clindamycin 300 MG Oral Capsule [place] ([facility]) chlorhexidine gluconate 1.2 MG/ML [facility] chlorhexidine gluconate 0.12 % mouthwash chlorhexidine gluconate 0.12 % mouthwash completed chlorhexidine gluconate 1.2 MG/ML Mouthwash [place] [facility]) Acetaminophen 325 MG / Hydrocodone Alonso trate 5 MG Oral Tablet hydrocodone 5 mg- acetaminophen 325 mg tablet hydrocodone 5 mg-acetaminophen 325 mg tablet completed acetaminophen 325 MG / hydrocodone bitartrate 5 MG Oral Tablet [place] [facility]) Lisinopril 20 MG Oral Tablet lisinopril 20 mg tablet TAKE ONE TABLET BY MOUTH EVERY EVENING lisinopril 20 mg tablet TAKE ONE TABLET BY MOUTH EVERY EVENI NG completed lisinopril 20 MG Oral Tablet [place] [facility]) Lisinopril 20 MG Oral Tablet lisinopril 20 mg tablet TAKE ONE TABLET BY MOUTH EVERY EVENING lisinopril 20 mg tablet TAKE ONE TABLET BY MOUTH EVERY EVENI NG completed lisinopril 20 MG Oral Tablet [place] [facility]) Clindamycin 300 MG Oral Capsule clindamy essence HCl 300 mg capsule TAKE ONE CAPSULE BY MOUTH THREE TIMES A DAY FOR 10 DAYS clindamycin HCl 300 mg capsule TAKE ONE CAPSULE BY MOUTH THREE TIMES A DAY FOR 10 DAYS completed clindamycin 300 MG Oral Capsule [place] [facility]) Omeprazole 20 MG Delayed Release Oral Ca psule omeprazole 20 mg capsule,delayed release TAKE ONE CAPSULE BY MOUTH EVERY MORNING BEFORE BREAKFAST omeprazole 20 mg capsule,delayed release TAKE ONE CAPSULE BY MOUTH EVERY MORNING BEFORE BREAKFAST completed omep razole 20 MG Delayed Release Oral Capsule [place] [facility]) Levothyroxine Sodium 0.2 MG Oral Tablet levothyroxine 200 mcg tablet levothyroxine 200 mcg tablet completed levothyroxine sodium 0.2 MG Oral Tablet [facility] [facility]) Acetaminophen 325 MG / Hydrocodone Alonso trate 5 MG Oral Tablet hydrocodone 5 mg- acetaminophen 325 mg tablet hydrocodone 5 mg-acetaminophen 325 mg tablet completed acetaminophen 325 MG / hydrocodone bitartrate 5 MG Oral Tablet [facility] ([facility]) Acetaminophen 325 MG / Oxycodone Hydroch loride 5 MG Oral Tablet oxycodone- acetaminophen 5 mg-325 mg tablet oxycodone-acetaminophen 5 mg-325 mg tablet completed acetaminop hen 325 MG / oxycodone hydrochloride 5 MG Oral Tablet [facility]) Acetaminophen 325 MG / Oxycodone Hydroch loride 5 MG Oral Tablet oxycodone- acetaminophen 5 mg-325 mg tablet oxycodone-acetaminophen 5 mg-325 mg tablet completed acetaminop hen 325 MG / oxycodone hydrochloride 5 MG Oral Tablet [facility] ([facility]) Lisinopril 20 MG Oral Tablet lisinopril 20 mg tablet TAKE ONE TABLET BY MOUTH EVERY EVENING lisinopril 20 mg tablet TAKE ONE TABLET BY MOUTH EVERY EVENI NG completed lisinopril 20 MG Oral Tablet [facility]) Lisinopril 20 MG Oral Tablet lisinopril 20 mg tablet TAKE ONE TABLET BY MOUTH EVERY EVENING lisinopril 20 mg tablet TAKE ONE TABLET BY MOUTH EVERY EVENI NG completed lisinopril 20 MG Oral Tablet [facility]) Nitroglycerin 0.4 MG Sublingual Tablet n itroglycerin 0.[address] ONE TABLET UNDER THE TONGUE EVERY 5 MINUTES FOR UP TO 3 DOSES NEEDED FOR CHEST PAIN. IF CHEST PAIN STILL PERSISTS CONTACT 911 nitroglycerin 0.[address] ONE TABLET UNDER THE TONGUE EVERY 5 MINUTES FOR UP TO 3 DOSES NEEDED FOR CHEST PAIN. IF CHEST PAIN STILL PERSISTS CONTACT 911 completed nitroglycerin 0.4 MG Sublingual Tablet [facility] [facility]) Levothyroxine Sodium 0.2 MG Oral Tablet levothyroxine 200 mcg tablet levothyroxine 200 mcg tablet completed levothyroxine sodium 0.2 MG Oral Tablet [facility] [facility]) Levothyroxine Sodium 0.2 MG Oral Tablet levothyroxine 200 mcg tablet levothyroxine 200 mcg tablet completed levothyroxine sodium 0.2 MG Oral Tablet [facility] [facility]) Acetaminophen 325 MG / Hydrocodone Alonso trate 5 MG Oral Tablet hydrocodone 5 mg- acetaminophen 325 mg tablet hydrocodone 5 mg-acetaminophen 325 mg tablet completed acetaminophen 325 MG / hydrocodone bitartrate 5 MG Oral Tablet [place] [facility]) atorvastatin 80 MG Oral Tablet atorvastatin 80 mg tabl et atorvastatin 80 mg tablet completed atorvastatin 80 MG Oral Tablet [facility] [facility]) Acetaminophen 325 MG / Oxycodone Hydroch loride 5 MG Oral Tablet oxycodone- acetaminophen 5 mg-325 mg tablet oxycodone-acetaminophen 5 mg-325 mg tablet completed acetaminop hen 325 MG / oxycodone hydrochloride 5 MG Oral Tablet [facility] [facility]) Fluconazole 150 MG Oral Tablet fluconazole 150 mg tabl et fluconazole 150 mg tablet completed fluconazole 150 MG Oral Tablet [facility] [facility]) Amoxicillin 500 MG Oral Capsule amoxicil belkys 500 mg capsule TAKE ONE CAPSULE BY MOUTH THREE TIMES A DAY amoxicillin 500 mg capsule TAKE ONE CAPS ULE BY MOUTH THREE TIMES A DAY completed amox icillin 500 MG Oral Capsule [place] [facility]) Levothyroxine Sodium 0.175 MG Oral Table t levothyroxine 175 mcg tablet TAKE 1 TABLET BY MOUTH EVERY MORNING levothyroxine 175 mcg tablet TAKE 1 TABL ET BY MOUTH EVERY MORNING completed levothyroxine sodium 0.175 MG Oral Tablet [facility] [facility]) Omeprazole 20 MG Delayed Release Oral Ca psule omeprazole 20 mg capsule,delayed release TAKE ONE CAPSULE BY MOUTH EVERY MORNING BEFORE BREAKFAST omeprazole 20 mg capsule,delayed release TAKE ONE CAPSULE BY MOUTH EVERY MORNING BEFORE BREAKFAST completed omep razole 20 MG Delayed Release Oral Capsule [facility] [facility]) Acetaminophen 325 MG / Hydrocodone Alonso trate 5 MG Oral Tablet hydrocodone 5 mg- acetaminophen 325 mg tablet hydrocodone 5 mg-acetaminophen 325 mg tablet completed acetaminophen 325 MG / hydrocodone bitartrate 5 MG Oral Tablet [facility]) clopidogrel 75 MG Oral Tablet clopidogre l 75 mg tablet TAKE ONE TABLET BY MOUTH EVERY DAY clopidogrel 75 mg tablet TAKE ONE TABLET BY MOUTH EVERY DAY completed clopidogrel 75 MG Oral Table t [place] [facility]) Clindamycin 300 MG Oral Capsule clindamy essence HCl 300 mg capsule TAKE ONE CAPSULE BY MOUTH THREE TIMES A DAY FOR 10 DAYS clindamycin HCl 300 mg capsule TAKE ONE CAPSULE BY MOUTH THREE TIMES A DAY FOR 10 DAYS completed clindamycin 300 MG Oral Capsule [facility] [facility]) Acetaminophen 325 MG / Hydrocodone Alonso trate 5 MG Oral Tablet hydrocodone 5 mg- acetaminophen 325 mg tablet hydrocodone 5 mg-acetaminophen 325 mg tablet completed acetaminophen 325 MG / hydrocodone bitartrate 5 MG Oral Tablet [facility]) Sucralfate 1000 MG Oral Tablet sucralfat e 1 gram tablet TAKE ONE TABLET BY MOUTH FOUR TIMES A DAY BEFORE MEALS sucralfate 1 gram tablet TAKE ONE TABLET BY MOUTH FOUR TIMES A DAY BEFORE MEALS complet ed sucralfate 1000 MG Oral Tablet [facility]) Amoxicillin 500 MG Oral Capsule amoxicil belkys 500 mg capsule TAKE ONE CAPSULE BY MOUTH THREE TIMES A DAY amoxicillin 500 mg capsule TAKE ONE CAPS ULE BY MOUTH THREE TIMES A DAY completed amox icillin 500 MG Oral Capsule [place] [facility]) Amoxicillin 500 MG Oral Capsule amoxicil belkys 500 mg capsule TAKE ONE CAPSULE BY MOUTH THREE TIMES A DAY amoxicillin 500 mg capsule TAKE ONE CAPS ULE BY MOUTH THREE TIMES A DAY completed amox icillin 500 MG Oral Capsule [place] [facility]) Sertraline 50 MG Oral Tablet sertraline 50 mg tablet sertraline 50 mg tablet completed sertraline 50 MG Oral Tablet [facility] [facility]) Acetaminophen 325 MG / Hydrocodone Alonso trate 5 MG Oral Tablet hydrocodone 5 mg- acetaminophen 325 mg tablet hydrocodone 5 mg-acetaminophen 325 mg tablet completed acetaminophen 325 MG / hydrocodone bitartrate 5 MG Oral Tablet [facility]) Nitroglycerin 0.4 MG Sublingual Tablet n itroglycerin 0.[address] ONE TABLET UNDER THE TONGUE EVERY 5 MINUTES FOR UP TO 3 DOSES NEEDED FOR CHEST PAIN. IF CHEST PAIN STILL PERSISTS CONTACT 911 nitroglycerin 0.[address] ONE TABLET UNDER THE TONGUE EVERY 5 MINUTES FOR UP TO 3 DOSES NEEDED FOR CHEST PAIN. IF CHEST PAIN STILL PERSISTS CONTACT 911 completed nitroglycerin 0.4 MG Sublingual Tablet [facility] [facility]) Sertraline 50 MG Oral Tablet sertraline 50 mg tablet sertraline 50 mg tablet completed sertraline 50 MG Oral Tablet [facility]) Sucralfate 1000 MG Oral Tablet sucralfat e 1 gram tablet TAKE ONE TABLET BY MOUTH FOUR TIMES A DAY BEFORE MEALS sucralfate 1 gram tablet TAKE ONE TABLET BY MOUTH FOUR TIMES A DAY BEFORE MEALS complet ed sucralfate 1000 MG Oral Tablet [facility] ([facility]) Sertraline 50 MG Oral Tablet sertraline 50 mg tablet sertraline 50 mg tablet completed sertraline 50 MG Oral Tablet [facility]) atorvastatin 80 MG Oral Tablet atorvastatin 80 mg tabl et atorvastatin 80 mg tablet completed atorvastatin 80 MG Oral Tablet [place] [facility]) Levothyroxine Sodium 0.2 MG Oral Tablet levothyroxine 200 mcg tablet levothyroxine 200 mcg tablet completed levothyroxine sodium 0.2 MG Oral Tablet [facility]) Clindamycin 300 MG Oral Capsule clindamy essence HCl 300 mg capsule TAKE ONE CAPSULE BY MOUTH THREE TIMES A DAY FOR 10 DAYS clindamycin HCl 300 mg capsule TAKE ONE CAPSULE BY MOUTH THREE TIMES A DAY FOR 10 DAYS completed clindamycin 300 MG Oral Capsule [facility]) Sucralfate 1000 MG Oral Tablet sucralfat e 1 gram tablet TAKE ONE TABLET BY MOUTH FOUR TIMES A DAY BEFORE MEALS sucralfate 1 gram tablet TAKE ONE TABLET BY MOUTH FOUR TIMES A DAY BEFORE MEALS complet ed sucralfate 1000 MG Oral Tablet [facility]) chlorhexidine gluconate 1.2 MG/ML Mouthw neva chlorhexidine gluconate 0.12 % mouthwash chlorhexidine gluconate 0.12 % mouthwash completed chlorhexidine gluconate 1.2 MG/ML Mouthwash [place] [facility]) clopidogrel 75 MG Oral Tablet clopidogre l 75 mg tablet TAKE ONE TABLET BY MOUTH EVERY DAY clopidogrel 75 mg tablet TAKE ONE TABLET BY MOUTH EVERY DAY completed clopidogrel 75 MG Oral Table t [facility]) Levothyroxine Sodium 0.175 MG Oral Table t levothyroxine 175 mcg tablet TAKE 1 TABLET BY MOUTH EVERY MORNING levothyroxine 175 mcg tablet TAKE 1 TABL ET BY MOUTH EVERY MORNING completed levothyroxine sodium 0.175 MG Oral Tablet [facility]) atorvastatin 80 MG Oral Tablet atorvastatin 80 mg tabl et atorvastatin 80 mg tablet completed atorvastatin 80 MG Oral Tablet [place] [facility]) clopidogrel 75 MG Oral Tablet clopidogre l 75 mg tablet TAKE ONE TABLET BY MOUTH EVERY DAY clopidogrel 75 mg tablet TAKE ONE TABLET BY MOUTH EVERY DAY completed clopidogrel 75 MG Oral Table t [place] [facility]) chlorhexidine gluconate 1.2 MG/ML Mouthw neva chlorhexidine gluconate 0.12 % mouthwash chlorhexidine gluconate 0.12 % mouthwash completed chlorhexidine gluconate 1.2 MG/ML Mouthwash [place] [facility]) Amoxicillin 500 MG Oral Capsule amoxicil belkys 500 mg capsule TAKE ONE CAPSULE BY MOUTH THREE TIMES A DAY amoxicillin 500 mg capsule TAKE ONE CAPS ULE BY MOUTH THREE TIMES A DAY completed amox icillin 500 MG Oral Capsule [place] [facility] clopidogrel 75 MG Oral Tablet clopidogre l 75 mg tablet TAKE ONE TABLET BY MOUTH EVERY DAY clopidogrel 75 mg tablet TAKE ONE TABLET BY MOUTH EVERY DAY completed clopidogrel 75 MG Oral Table t [place] ([facility]) Acetaminophen 325 MG / Oxycodone Hydroch loride 5 MG Oral Tablet oxycodone- acetaminophen 5 mg-325 mg tablet oxycodone-acetaminophen 5 mg-325 mg tablet completed acetaminop hen 325 MG / oxycodone hydrochloride 5 MG Oral Tablet [place] ([facility]) Nitroglycerin 0.4 MG Sublingual Tablet n itroglycerin 0.[address] ONE TABLET UNDER THE TONGUE EVERY 5 MINUTES FOR UP TO 3 DOSES NEEDED FOR CHEST PAIN. IF CHEST PAIN STILL PERSISTS CONTACT 911 nitroglycerin 0.[address] ONE TABLET UNDER THE TONGUE EVERY 5 MINUTES FOR UP TO 3 DOSES NEEDED FOR CHEST PAIN. IF CHEST PAIN STILL PERSISTS CONTACT 911 completed nitroglycerin 0.4 MG Sublingual Tablet [place] ([facility]) Amoxicillin 500 MG Oral Capsule amoxicil belkys 500 mg capsule TAKE ONE CAPSULE BY MOUTH THREE TIMES A DAY amoxicillin 500 mg capsule TAKE ONE CAPS ULE BY MOUTH THREE TIMES A DAY completed amox icillin 500 MG Oral Capsule [place] ([facility]) Sucralfate 1000 MG Oral Tablet sucralfat e 1 gram tablet TAKE ONE TABLET BY MOUTH FOUR TIMES A DAY BEFORE MEALS sucralfate 1 gram tablet TAKE ONE TABLET BY MOUTH FOUR TIMES A DAY BEFORE MEALS complet ed sucralfate 1000 MG Oral Tablet [place] ([facility]) Acetaminophen 325 MG / Oxycodone Hydroch loride 5 MG Oral Tablet oxycodone- acetaminophen 5 mg-325 mg tablet oxycodone-acetaminophen 5 mg-325 mg tablet completed acetaminop hen 325 MG / oxycodone hydrochloride 5 MG Oral Tablet [place] ([facility]) Levothyroxine Sodium 0.175 MG Oral Table t levothyroxine 175 mcg tablet TAKE 1 TABLET BY MOUTH EVERY MORNING levothyroxine 175 mcg tablet TAKE 1 TABL ET BY MOUTH EVERY MORNING completed levothyroxine sodium 0.175 MG Oral Tablet [place] ([facility]) Omeprazole 20 MG Delayed Release Oral Ca psule omeprazole 20 mg capsule,delayed release TAKE ONE CAPSULE BY MOUTH EVERY MORNING BEFORE BREAKFAST omeprazole 20 mg capsule,delayed release TAKE ONE CAPSULE BY MOUTH EVERY MORNING BEFORE BREAKFAST completed omep razole 20 MG Delayed Release Oral Capsule [place] ([facility]) Omeprazole 20 MG Delayed Release Oral Ca psule omeprazole 20 mg capsule,delayed release TAKE ONE CAPSULE BY MOUTH EVERY MORNING BEFORE BREAKFAST omeprazole 20 mg capsule,delayed release TAKE ONE CAPSULE BY MOUTH EVERY MORNING BEFORE BREAKFAST completed omep razole 20 MG Delayed Release Oral Capsule [place] ([facility]) Insurance Providers Payer name Policy type / Coverage type Policy ID Covered green party ID Covered green party's relationship to katz Policy Katz Plan Information [facility] Ins () Workers Compensation [id number] Self [id number] [facility] MEDICAID [id number] Venita [id number] [facility] MEDICAID [id number] Venita [id number] Medicaid S [id number] S [id number] Managed Care - Community Plan [facility] P [id number] S [id number] Medicaid P [id number] S [id number] MEDICAID [id number] Venita [id number] Medicaid S [id number] S [id number] Managed Care - [facility] Community Plan P [id number] S [id number] Managed Care - [facility] Community Plan P [id number] S [id number] Medicaid S [id number] S [id number] Managed Care - [facility] Community Plan P [id number] S [id number] Medicaid S [id number] S [id number] [facility]-Community Plan-[facility] Medigap Part B [id number] Self 1 [id number] Medicaid Medigap Part B [id number] Self [id number] [facility]-Community Plan-[facility] Commercial [id number] Self 1 [id number] [facility] Plan-[facility] Medigap Part B [id number] Self 1 [id number] Medicaid Medigap Part B [id number] [id number] Self [id number] [facility] Plan-[facility] Commercial [id number] Self [id number] [facility] COMMUNITY PLAN [facility] [id number] [facility]-Community Plan-[facility] Medigap Part B [id number] Self 1 [id number] Medicaid Medigap Part B [id number] [id number] Self [id number] [facility]-Community Plan-[facility] Commercial [id number] Self [id number] Self Pay P UNAVAILABLE S UNAVAILA BLE [facility] [id number] Self [id number] [facility] [id number] Self SELF PAY UNAVAILABLE SP UNAVAILA BLE [facility] [id number] SP [id number] SELF PAY ONLY [id number] SP [id number] [place] [id number] SP [id number] M [place] [id number] SP [id number] MEDICAID [id number] SP [id number] [facility](MCAID) O [id number] S [id number] [facility](MCAID) O [id number] S [id number] MEDICAID M [id number] S [id number] Medicaid [place] Medicaid [id number] Self [id number] [place] [id number] Self [id number] YOSELYN [id number] SP [id number] [facility] [id number] SP [id number] Medicaid P [id number] S [id number] Problems, Conditions, and Diagnoses Code Display Name Description Problem Type Effective Dates Data Source(s) N93.9 Abnormal uterine bleeding Abnormal uteri ne and vaginal bleeding, unspecified Problem 06/16/2021 12:00:00 AM EDT eCW1 ([facility]) [id number] Patient asked to attend Patient Asked to Attend [facility] 03/03/2021 12:00:00 AM EDT [place] ([facility]) [id number] Body mass index 40+ - severely obese Bod y Mass Index 40+ - Severely Obese Problem 03/03/2021 12:00:00 AM EDT [place] ([facility]) [id number] Patient asked to attend Patient Asked to Attend [facility] 03/03/2021 12:00:00 AM EDT [place] ([facility]) [id number] Body mass index 40+ - severely obese Bod y Mass Index 40+ - Severely Obese Problem 03/03/2021 12:00:00 AM EDT [place] ([facility]) [id number] Patient asked to attend Patient Asked to Attend [facility] 03/03/2021 12:00:00 AM EDT [place] ([facility]) [id number] Body mass index 40+ - severely obese Bod y Mass Index 40+ - Severely Obese Problem 03/03/2021 12:00:00 AM EDT [place] ([facility]) [id number] Patient asked to attend Patient Asked to Attend [facility] 03/03/2021 12:00:00 AM EDT [place] ([facility]) [id number] Body mass index 40+ - severely obese Bod y Mass Index 40+ - Severely Obese Problem 03/03/2021 12:00:00 AM EDT [place] ([facility]) 06189842 Depressive disorder Depressive Disorder Problem 1 05:34:13 PM EDT [place] ([facility]) 52749556 Hypothyroidism Hypothyroidism Problem 07/10/2020 05:34: 13 PM EDT [place] ([facility]) 90432350 Depressive disorder Depressive Disorder Problem 1 05:34:13 PM EDT [place] ([facility]) 99594217 Hypothyroidism Hypothyroidism Problem 07/10/2020 05:34: 13 PM EDT [place] ([facility]) 62916075 Depressive disorder Depressive Disorder Problem 1 05:34:13 PM EDT [place] ([facility]) 63068246 Hypothyroidism Hypothyroidism Problem 07/10/2020 05:34: 13 PM EDT [place] ([facility]) 75747694 Depressive disorder Depressive Disorder Problem 1 05:34:13 PM EDT [place] ([facility]) 10821969 Hypothyroidism Hypothyroidism Problem 07/10/2020 05:34: 13 PM EDT [place] ([facility]) 12422853 Depressive disorder Depressive Disorder Problem 1 05:34:13 PM EDT [place] ([facility]) 51112259 Hypothyroidism Hypothyroidism Problem 07/10/2020 05:34: 13 PM EDT [place] ([facility]) 14355367 Depressive disorder Depressive Disorder Problem 1 05:34:13 PM EDT [place] ([facility]) 14544723 Hypothyroidism Hypothyroidism Problem 07/10/2020 05:34: 13 PM EDT [place] ([facility]) 530.81 Gastro-esophageal reflux disease without esophagitis Gastro-esophageal reflux disease without esophagitis 06/30/2020 11:25:44 AM ED T [facility] 789.02 Left upper quadrant pain Left upper quadrant pain 06/30/2020 11:25:44 AM EDT [facility] 787.3 Abdominal bloating Abdominal bloating 0 11:25:44 AM EDT [facility] [id number] Left upper quadrant pain Left Upper Quadrant Pain Prob ana maria 06/30/2020 12:00:00 AM EDT [place] ([facility]) 948857161 Left upper quadrant pain Left Upper Quadrant Pain Prob ana maria 06/30/2020 12:00:00 AM EDT [place] ([facility]) 949646166 Left upper quadrant pain Left Upper Quadrant Pain Prob ana maria 06/30/2020 12:00:00 AM EDT [place] ([facility]) 578524142 Left upper quadrant pain Left Upper Quadrant Pain Prob ana maria 06/30/2020 12:00:00 AM EDT [place] ([facility]) 560362147 Left upper quadrant pain Left Upper Quadrant Pain Prob ana maria 06/30/2020 12:00:00 AM EDT [place] ([facility]) [id number] Left upper quadrant pain Left Upper Quadrant Pain Prob ana maria 06/30/2020 12:00:00 AM EDT [place] ([facility]) Surgeries/Procedures Procedure Description Date Indications Data Source(s) OFFICE OUTPATIENT NEW 45 MINUTES 04/01/2021 12:00:00 A M EDT [facility] ([facility], ) CT, abdomen + pelvis, w/wo contrast 03/03/2021 12:00:0 0 AM EDT [place] ([facility]) CT, abdomen + pelvis, w/wo contrast 03/03/2021 12:00:0 0 AM EDT [place] ([facility]) US, abdomen, complete 01/07/2021 12:00:00 AM EDT [place] ([facility]) US, abdomen, complete 01/07/2021 12:00:00 AM EDT [place] ([facility]) US, abdomen, complete 01/07/2021 12:00:00 AM EDT [place] ([facility]) US, abdomen, complete 01/07/2021 12:00:00 AM EDT [place] ([facility]) US, abdomen, complete 01/07/2021 12:00:00 AM EDT [place] ([facility]) US, abdomen, complete 01/07/2021 12:00:00 AM EDT [place] ([facility]) ECG ROUTINE ECG W/LEAST 12 LDS W/I&R 06/30/2020 12:00: 00 AM EDT [place] ([facility]) Results ID Date Data Source Pathology Request For Service 06/16/2021 12:00:00 AM EDT eCW 1 ([facility]) Name Value Range Interpretation Code Description Data Amanda rce(s) Supporting Document(s) GENITOURINARY eCW1 ([facility]) ID Date Data Source [id number] 04/30/2021 05:12:00 PM EDT [place] ([facility]) Name Value Range Interpretation Code Description Data Amanda rce(s) Supporting Document(s) anti-mitochondrial antibody <20.0 0.0-20.0 Anti-yesenia ochondrial Antibody [place] ([facility]) ID Date Data Source [id number] 04/30/2021 05:12:00 PM EDT [place] ([facility]) Name Value Range Interpretation Code Description Data Amanda rce(s) Supporting Document(s) ceruloplasmin 28.2 mg/dL 19.0-39.0 Ceruloplasmin [place] ( [facility]) ID Date Data Source [id number] 04/30/2021 05:12:00 PM EDT [place] ([facility]) Name Value Range Interpretation Code Description Data Amanda rce(s) Supporting Document(s) liver-kidney microsomal luis <20.1 0.0-20.0 Liver-ki dney Microsomal Luis [place] ([facility]) ID Date Data Source [id number] 04/30/2021 05:12:00 PM EDT [place] ([facility]) Name Value Range Interpretation Code Description Data Amanda rce(s) Supporting Document(s) antinuclear antibodies direct negative negative Antinu clear Antibodies Direct [place] ([facility]) ID Date Data Source [id number] 04/30/2021 05:12:00 PM EDT [facility]) Name Value Range Interpretation Code Description Data Amanda rce(s) Supporting Document(s) alpha 1 antitrypsin 127 mg/dL 101-187 Alpha 1 Antitryp sin [facility]) ID Date Data Source [id number] 04/30/2021 05:12:00 PM EDT [facility]) Name Value Range Interpretation Code Description Data Amanda rce(s) Supporting Document(s) cytoplasmic neutrop Ab anca-C <1:20 neg:<1:20 Cytopl asmic Neutrop Ab anca-C [facility]) perinuclear Ab anca-P <1:20 neg:<1:20 Perinuclear Ab anca-P [facility]) anca-atypical <1:20 neg:<1:20 Anca-atypical [place] ( [facility]) ID Date Data Source [id number] 04/30/2021 05:12:00 PM EDT [facility]) Name Value Range Interpretation Code Description Data Amanda rce(s) Supporting Document(s) white blood count 8.8 10 4.0-10.0 White Blood Count [place] ([facility]) red blood count 4.38 10 4.00-5.40 Red Blood Count [place] ([facility]) hemoglobin 12.6 g/dL 12.0-15.5 Hemoglobin [place] ([facility]) hematocrit 39.8 % 36.0-47.0 Hematocrit [place] ([facility]) mean corpuscular volume 90.9 fL 80.0-96.0 Mean Corpusc ular Volume [place] ([facility]) mean corpuscular hemoglobin 28.8 pg 27.0-33.0 Mean Cor puscular Hemoglobin [place] ([facility]) mean corpuscular HGB conc 31.7 g/dL 32.0-36.5 Below low kellie l Mean Corpuscular HGB Conc [place] ([facility]) platelet count, automated 283 10 150-450 Platelet C ount, Automated [place] ([facility]) red cell distribution width 12.9 % 11.5-14.5 Red Cell Distribution Width [place] ([facility]) neutrophils % 65.1 % 36.0-66.0 Neutrophils % [place] ( [facility]) lymph % 24.6 % 24.0-44.0 Lymph % [place] ([facility]) mono % 8.7 % 2.0-8.0 Above high normal [place] % [place] ([facility]) eos % 0.5 % 0.0-3.0 Eos % [place] ([facility]) baso % 0.8 % 0.0-1.0 Baso % [place] ([facility]) immature granulocyte % 0.3 % 0-3.0 Immature Gran ulocyte % [place] ([facility]) neutrophils # 5.7 10 1.5-8.5 Neutrophils # [place] ( [facility]) nucleated red blood cell % 0.0 % 0-0 Nucleated Red Blood Cell % [place] ([facility]) lymph # 2.2 10 1.5-5.0 Lymph # [place] ([facility]) mono # 0.8 10 0.0-0.8 [place] # [place] ([facility]) eos # 0.0 10 0.0-0.5 Eos # [place] ([facility]) baso # 0.1 10 0.0-0.2 Baso # [place] ([facility]) ID Date Data Source [id number] 04/30/2021 05:12:00 PM EDT [facility]) Name Value Range Interpretation Code Description Data Amanda rce(s) Supporting Document(s) Hepatitis C Virus Luis Index 0.2 INDEX Normal (appli es to non-numeric results) [facility] ([facility]) Negative Not infected with HCV, unless recent infection is suspected or other evidence exists to indicate HCV infection. Hepatitis B Core Antibody Igm Laboratory test result Normal (applies to non- numeric results) [facility] ([facility]) Hepatitis B Surface Antigen Laboratory test result Normal (applies to non- numeric results) [facility]) Hepatitis A Antibody Igm Laboratory test result Normal (applies to non-numeric results) [facility]) ID Date Data Source [id number] 04/30/2021 05:12:00 PM EDT [facility] ([facility]) Name Value Range Interpretation Code Description Data Amanda rce(s) Supporting Document(s) Ceruloplasmin [Mass/volume] in Serum or Plasma 28.2 mg/dL 1 9.0-39.0 Normal (applies to non-numeric results) [facility] ([facility]) Alpha 1 antitrypsin [Mass/volume] in Serum or Plasma 127 mg/dL 101-187 Normal (applies to non-numeric results) [facility]) Performed at: - [facility] [id number] Radiator Core Tester: Luanne Mchugh MD, Phone: [phone] Performed at: - [facility] [address] [id number] Radiator Core Tester: Kimberly Castellon MD, Phone: [phone] ID Date Data Source [id number] 04/30/2021 05:12:00 PM EDT [facility]) Name Value Range Interpretation Code Description Data Amanda rce(s) Supporting Document(s) Iron (Fe) 50 ug/dL 50-170 Normal (applies to non-numeric resul ts) [facility] ([facility]) Total Iron Binding Capacity 360 ug/dL 250-450 Norm al (applies to non-numeric results) [facility] ([facility]) Percent Saturation 13.9 % 13.2-45.0 Normal (applies to non-numer ic results) [facility]) ID Date Data Source [id number] 04/30/2021 05:12:00 PM EDT [facility]) Name Value Range Interpretation Code Description Data Amanda rce(s) Supporting Document(s) Liver-Kidney Microsomal Luis Laboratory test result 0.0-20.0 Normal (applies to non-numeric results) [facility] ([facility]) Negative 0.0 - 20.0 Equivocal 20.1 - 24.9 Positive >24.9 . LKM type 1 antibodies are detected in patients with autoimmune hepatitis type 2 and in up to 8% of patients with chronic HCV infection. ID Date Data Source [id number] 04/30/2021 05:12:00 PM EDT [facility]) Name Value Range Interpretation Code Description Data Amanda rce(s) Supporting Document(s) Cytoplasmic Neutrop AB Anca-C Laboratory test result Normal (applies to non- numeric results) [facility] ([facility]) Anca-Atypical Laboratory test result Normal (applies t o non-numeric results) [facility]) The atypical pANCA pattern has been obse rved in a significant percentage of patients with ulcerative colitis, primary sclerosing cholangitis and autoimmune hepatitis. Perinuclear AB Anca-P Laboratory test result Nor mal (applies to non-numeric results) [facility] ([facility]) The presence of positive fluorescence ex hibiting P-ANCA or C-ANCA patterns alone is not specific for the diagnosis of Lesli's Granulomatosis (WG) or microscopic polyangiitis. Decisions about treatment should not be based solely on ANCA IFA results. The [employer]CA [employer] Consensus recommends follow up testing of positive sera with both AK- 3 and MPO-ANCA enzyme immunoassays. As m any as 5% serum samples are positive only by EIA. Ref. AM J Clin Pathol 1999;111:507-513. ID Date Data Source [id number] 04/30/2021 05:12:00 PM EDT [facility]) Name Value Range Interpretation Code Description Data Amanda rce(s) Supporting Document(s) Mitochondria Ab [Units/volume] in Serum Laboratory test result 0 .0-20.0 Normal (applies to non-numeric results) [facility]) Negative 0.0 - 20.0 Equivocal 20.1 - 24.9 Positive >24.9 . Mitochondrial (M2) Antibodies are found in 90-96% of patients with primary biliary cirrhosis. ID Date Data Source [id number] 04/30/2021 05:12:00 PM EDT [facility]) Name Value Range Interpretation Code Description Data Amanda rce(s) Supporting Document(s) Antinuclear Antibodies Direct Laboratory test result Normal (applies to non- numeric results) [facility]) ID Date Data Source [id number] 04/30/2021 05:12:00 PM EDT [facility]) Name Value Range Interpretation Code Description Data Amanda rce(s) Supporting Document(s) anti-mitochondrial antibody <20.0 0.0-20.0 Anti-yesenia ochondrial Antibody [facility]) ID Date Data Source [id number] 04/30/2021 05:12:00 PM EDT [facility]) Name Value Range Interpretation Code Description Data Amanda rce(s) Supporting Document(s) ceruloplasmin 28.2 mg/dL 19.0-39.0 Ceruloplasmin [facility]) ID Date Data Source [id number] 04/30/2021 05:12:00 PM EDT [facility]) Name Value Range Interpretation Code Description Data Amanda rce(s) Supporting Document(s) liver-kidney microsomal luis <20.1 0.0-20.0 Liver-ki dney Microsomal Luis [place] ([facility]) ID Date Data Source [id number] 04/30/2021 05:12:00 PM EDT [place] ([facility]) Name Value Range Interpretation Code Description Data Amanda rce(s) Supporting Document(s) antinuclear antibodies direct negative negative Antinu clear Antibodies Direct [place] ([facility]) ID Date Data Source [id number] 04/30/2021 05:12:00 PM EDT [place] ([facility]) Name Value Range Interpretation Code Description Data Amanda rce(s) Supporting Document(s) alpha 1 antitrypsin 127 mg/dL 101-187 Alpha 1 Antitryp sin [facility]) ID Date Data Source [id number] 04/30/2021 05:12:00 PM EDT [place] ([facility]) Name Value Range Interpretation Code Description Data Amanda rce(s) Supporting Document(s) cytoplasmic neutrop Ab anca-C <1:20 neg:<1:20 Cytopl asmic Neutrop Ab anca-C [place] ([facility]) anca-atypical <1:20 neg:<1:20 Anca-atypical [place] ( [facility]) perinuclear Ab anca-P <1:20 neg:<1:20 Perinuclear Ab anca-P [place] ([facility]) ID Date Data Source [id number] 04/30/2021 05:12:00 PM EDT [place] ([facility]) Name Value Range Interpretation Code Description Data Amanda rce(s) Supporting Document(s) white blood count 8.8 10 4.0-10.0 White Blood Count [place] ([facility]) red blood count 4.38 10 4.00-5.40 Red Blood Count [facility] ([facility]) hematocrit 39.8 % 36.0-47.0 Hematocrit [place] ([facility]) hemoglobin 12.6 g/dL 12.0-15.5 Hemoglobin [place] ([facility]) mean corpuscular volume 90.9 fL 80.0-96.0 Mean Corpusc ular Volume [place] ([facility]) mean corpuscular HGB conc 31.7 g/dL 32.0-36.5 Below low kellie l Mean Corpuscular HGB Conc [place] ([facility]) mean corpuscular hemoglobin 28.8 pg 27.0-33.0 Mean Cor puscular Hemoglobin [place] ([facility]) red cell distribution width 12.9 % 11.5-14.5 Red Cell Distribution Width [place] ([facility]) platelet count, automated 283 10 150-450 Platelet C ount, Automated [place] ([facility]) neutrophils % 65.1 % 36.0-66.0 Neutrophils % [place] ( [facility]) lymph % 24.6 % 24.0-44.0 Lymph % [place] ([facility]) mono % 8.7 % 2.0-8.0 Above high normal [place] % [place] ([facility]) baso % 0.8 % 0.0-1.0 Baso % [place] ([facility]) eos % 0.5 % 0.0-3.0 Eos % [place] ([facility]) nucleated red blood cell % 0.0 % 0-0 Nucleated Red Blood Cell % [place] ([facility]) immature granulocyte % 0.3 % 0-3.0 Immature Gran ulocyte % [place] ([facility]) neutrophils # 5.7 10 1.5-8.5 Neutrophils # [place] ( [facility]) lymph # 2.2 10 1.5-5.0 Lymph # [place] ([facility]) mono # 0.8 10 0.0-0.8 [place] # [facility] ([facility]) baso # 0.1 10 0.0-0.2 Baso # [place] ([facility]) eos # 0.0 10 0.0-0.5 Eos # [facility] [facility] [place]) ID Date Data Source [id number] 04/30/2021 05:12:00 PM EDT [facility] ([facility]) Name Value Range Interpretation Code Description Data Amanda rce(s) Supporting Document(s) White Blood Count 8.8 10 4.0-10.0 Normal (applies to non-numeri c results) [facility] ([facility], ) Hemoglobin 12.6 g/dL 12.0-15.5 Normal (applies to non-numeric resul ts) [facility] Red Blood Count 4.38 10 4.00-5.40 Normal (applies to non-numeric results) [facility]) Hematocrit 39.8 % 36.0-47.0 Normal (applies to non-numeric resul ts) [facility]) Mean Corpuscular Hemoglobin 28.8 pg 27.0-33.0 Norm al (applies to non-numeric results) [facility] ([facility]) Mean Corpuscular Volume 90.9 fl 80.0-96.0 Normal ( applies to non-numeric results) [facility] ([facility]) Mean Corpuscular HGB Conc 31.7 g/dL 32.0-36.5 Below low normal [facility] ([facility]) Red Cell Distribution Width 12.9 % 11.5-14.5 Norm al (applies to non-numeric results) [facility] ([facility]) Platelet Count, Automated 283 10 150-450 Normal (applies to non-numeric results) [facility]) Lymph % 24.6 % 24.0-44.0 Normal (applies to non-numeric resul ts) [facility] Neutrophils % 65.1 % 36.0-66.0 Normal (applies to non-numeric re sults) [facility]) Eos % 0.5 % 0.0-3.0 Normal (applies to non-numeric resul ts) [facility] [place] % 8.7 % 2.0-8.0 Above high normal [facility]) Baso % 0.8 % 0.0-1.0 Normal (applies to non-numeric resul ts) [facility] Immature Granulocyte % 0.3 % 0-3.0 Normal (applies to non-n umeric results) [facility]) Nucleated Red Blood Cell % 0.0 % 0-0 Normal (applies to n on-numeric results) [facility]) Neutrophils # 5.7 10 1.5-8.5 Normal (applies to non-numeric re sults) [facility]) Lymph # 2.2 10 1.5-5.0 Normal (applies to non-numeric resul ts) [facility] Eos # 0.0 10 0.0-0.5 Normal (applies to non-numeric resul ts) [facility] [place] # 0.8 10 0.0-0.8 Normal (applies to non-numeric resul ts) [facility]) Baso # 0.1 10 0.0-0.2 Normal (applies to non-numeric resul ts) [facility] ([facility]) ID Date Data Source [id number] 04/30/2021 05:12:00 PM EDT [facility]) Name Value Range Interpretation Code Description Data Amanda rce(s) Supporting Document(s) Prothrombin Time 12.7 s 12.7-14.5 Normal (applies to non-numeric results) [facility]) Inr 0.91 Normal (applies to non-numeric resul ts) [facility]) THERAPUTIC HUMAN INR VALUES INDICATIONS NORMAL RANGES PROPHYLAXIS/TREATMENT OF: VENOUS THROMBOSIS 2.0-3.0 PULMONARY EMBOLISM 2.0-3.0 PREVENTION OF SYSTEMIC EMBOLISM FROM: TISSUE HEART VALVES 2.0-3.0 ACUTE MYOCARDIAL INFARCTION 2.0-3.0 VALVULAR HEART DISEASE 2.0-3.0 ATRIAL FIBRILLATION 2.0-3.0 MECHANICAL VALVES(HIGH RISK) 2.5-3.5 RECURRENT MYOCARDIAL INFARCTION 2.5-3.5 ID Date Data Source [id number] 04/30/2021 05:12:00 PM EDT [facility]) Name Value Range Interpretation Code Description Data Amanda rce(s) Supporting Document(s) Gamma glutamyl transferase [Enzymatic activity/volume] in Serum or Plasma 53 U/L 5-55 Normal (applies to non-numeric results) [facility]) ID Date Data Source [id number] 04/30/2021 05:12:00 PM EDT [facility]) Name Value Range Interpretation Code Description Data Amanda rce(s) Supporting Document(s) Ast/Sgot 23 U/L 7-37 Normal (applies to non-numeric resul ts) [facility]) Alt/SGPT 34 U/L 12-78 Normal (applies to non-numeric resul ts) [facility] ([facility]) Alkaline Phosphatase 116 U/L 45-117 Normal (applies to non-num jaye results) [facility] ([facility]) Bilirubin,Direct Laboratory test result 0.0-0.2 Normal ( applies to non-numeric results) [facility] ([facility]) Bilirubin,Total 0.3 mg/dL 0.2-1.0 Normal (applies to non-numeric results) [facility] ([facility]) Total Protein 7.4 GM/DL 6.4-8.2 Normal (applies to non-numeric re sults) [facility]) Albumin/Globulin Ratio 0.9 1.2-2.2 Below low normal [facility] ([facility]) Albumin 3.5 GM/DL 3.2-5.2 Normal (applies to non-numeric resul ts) [facility]) ID Date Data Source [id number] 04/30/2021 05:11:00 PM EDT [facility]) Name Value Range Interpretation Code Description Data Amanda rce(s) Supporting Document(s) hepatitis C virus luis index 0.2 index <0.8 Hepatiti s C Virus Luis Index [facility]) hepatitis B surface antigen negative negative Hepatiti s B Surface Antigen [place] ([facility]) hepatitis B core antibody IgM negative negative Hepati tis B Core Antibody IgM [facility] ([facility]) hepatitis A antibody IgM negative negative Hepatitis a Antibody IgM [facility] ([facility]) ID Date Data Source [id number] 04/30/2021 05:11:00 PM EDT [facility] ([facility]) Name Value Range Interpretation Code Description Data Amanda rce(s) Supporting Document(s) iron (fe) 50 ug/dL 50-170 Iron (Fe) [facility] ([facility]) total iron binding capacity 360 ug/dL 250-450 Total Ir on Binding Capacity [facility] ([facility]) percent saturation 13.9 % 13.2-45.0 Percent Saturatio n [place] ([facility]) ID Date Data Source [id number] 04/30/2021 05:11:00 PM EDT [facility] ([facility]) Name Value Range Interpretation Code Description Data Amanda rce(s) Supporting Document(s) gamma glutamyltranspeptidase 53 U/L 5-55 Gamma G lutamyltranspeptidase [facility] ([facility]) ID Date Data Source [id number] 04/30/2021 05:11:00 PM EDT [place] ([facility]) Name Value Range Interpretation Code Description Data Amanda rce(s) Supporting Document(s) ALT/SGPT 34 U/L 12-78 ALT/SGPT [facility] ([facility] [place]) AST/SGOT 23 U/L 7-37 AST/SGOT [facility] ([facility] [place]) alkaline phosphatase 116 U/L 45-117 Alkaline Phosph atase [facility] ([facility]) bilirubin,total 0.3 mg/dL 0.2-1.0 Bilirubin,total [facility] ([facility]) total protein 7.4 gm/dL 6.4-8.2 Total Protein [facility] ( [facility]) bilirubin,direct < 0.1 0.0-0.2 Bilirubin,direct AT [facility] ([facility]) albumin 3.5 gm/dL 3.2-5.2 Albumin [facility] ([facility] [place]) albumin/globulin ratio 1.2-2.2 Below low normal Albumin /globulin Ratio [facility] ([facility]) ID Date Data Source [id number] 04/30/2021 05:11:00 PM EDT [facility] ([facility]) Name Value Range Interpretation Code Description Data Amanda rce(s) Supporting Document(s) prothrombin time 12.7 seconds 12.7-14.5 Prothrombin Time [facility] ([facility]) INR Inr [facility] ([facility] [place]) ID Date Data Source [id number] 04/30/2021 05:11:00 PM EDT [facility] ([facility]) Name Value Range Interpretation Code Description Data Amanda rce(s) Supporting Document(s) hepatitis C virus luis index 0.2 index <0.8 Hepatiti s C Virus Luis Index [facility] ([facility]) hepatitis B surface antigen negative negative Hepatiti s B Surface Antigen [facility] ([facility]) hepatitis B core antibody IgM negative negative Hepati tis B Core Antibody IgM [facility] ([facility]) hepatitis A antibody IgM negative negative Hepatitis a Antibody IgM [facility] ([facility]) ID Date Data Source [id number] 04/30/2021 05:11:00 PM EDT [facility] ([facility]) Name Value Range Interpretation Code Description Data Amanda rce(s) Supporting Document(s) iron (fe) 50 ug/dL 50-170 Iron (Fe) [facility] ([facility]) total iron binding capacity 360 ug/dL 250-450 Total Ir on Binding Capacity [facility] ([facility]) percent saturation 13.9 % 13.2-45.0 Percent Saturatio n [facility] ([facility]) ID Date Data Source [id number] 04/30/2021 05:11:00 PM EDT [facility] ([facility]) Name Value Range Interpretation Code Description Data Amanda rce(s) Supporting Document(s) gamma glutamyltranspeptidase 53 U/L 5-55 Gamma G lutamyltranspeptidase [facility] ([facility]) ID Date Data Source [id number] 04/30/2021 05:11:00 PM EDT [facility] ([facility]) Name Value Range Interpretation Code Description Data Amanda rce(s) Supporting Document(s) AST/SGOT 23 U/L 7-37 AST/SGOT [facility] ([facility] [place]) ALT/SGPT 34 U/L 12-78 ALT/SGPT [facility] ([facility] [place]) alkaline phosphatase 116 U/L 45-117 Alkaline Phosph atase [facility] ([facility]) bilirubin,total 0.3 mg/dL 0.2-1.0 Bilirubin,total [facility] ([facility]) total protein 7.4 gm/dL 6.4-8.2 Total Protein [facility] ( [facility]) bilirubin,direct < 0.1 0.0-0.2 Bilirubin,direct AT [place] ([facility]) albumin/globulin ratio 1.2-2.2 Below low normal Albumin /globulin Ratio [facility] ([facility]) albumin 3.5 gm/dL 3.2-5.2 Albumin [facility] ([facility] [place]) ID Date Data Source [id number] 04/30/2021 05:11:00 PM EDT [facility] ([facility]) Name Value Range Interpretation Code Description Data Amanda rce(s) Supporting Document(s) prothrombin time 12.7 seconds 12.7-14.5 Prothrombin Time [facility] ([facility]) INR Inr [facility] ([facility]) ID Date Data Source [id number] 04/01/2021 10:54:00 AM EDT [facility] ([facility]) Name Value Range Interpretation Code Description Data Amanda rce(s) Supporting Document(s) tissue transglutaminase IgA <2 0-3 Tissue T ransglutaminase IgA [facility] ([facility]) ID Date Data Source [id number] 04/01/2021 10:54:00 AM EDT [facility]) Name Value Range Interpretation Code Description Data Amanda rce(s) Supporting Document(s) immunoglobulin A 178.0 mg/dL 70-400 Immunoglobulin a A [facility] ([facility]) ID Date Data Source [id number] 04/01/2021 10:54:00 AM EDT [facility] Name Value Range Interpretation Code Description Data Amanda rce(s) Supporting Document(s) tissue transglutaminase IgA <2 0-3 Tissue T ransglutaminase IgA [facility] ID Date Data Source [id number] 04/01/2021 10:54:00 AM EDT [facility] Name Value Range Interpretation Code Description Data Amanda rce(s) Supporting Document(s) immunoglobulin A 178.0 mg/dL 70-400 Immunoglobulin a A [facility] ([facility]) ID Date Data Source [id number] 04/01/2021 10:54:00 AM EDT [facility] ([facility], ) Name Value Range Interpretation Code Description Data Amanda rce(s) Supporting Document(s) IgA [Mass/volume] in Serum or Plasma 178.0 mg/dL 70-400 Normal (applies to non- numeric results) [facility] ([facility], ) 04/19/21 (TueApr 19) 06:57 PM ANITA SHELTON neg Tissue transglutaminase IgA Ab [Units/volume] in Serum Labor atory test result 0-3 Normal (applies to non-numeric results) [facility] ([facility], ) Negative 0 - 3 Weak Positive 4 - 10 Positive >10 . Tissue Transglutaminase (tTG) has been identified as the endomysial antigen. Studies have demonstr- ated that endomysial IgA antibodies have over 99% specificity for gluten sensitive enteropathy. Performed at: RN - [facility] [address] [id number] Radiator Core Tester: Kimberly Castellon MD, Phone: [phone] ID Date Data Source [id number] 03/11/2021 10:00:00 AM EDT [facility]) Name Value Range Interpretation Code Description Data Amanda rce(s) Supporting Document(s) HPV aptima negative negative HPV Aptima [facility]) ID Date Data Source [id number] 03/11/2021 10:00:00 AM EDT [facility]) Name Value Range Interpretation Code Description Data Amanda rce(s) Supporting Document(s) HPV aptima negative negative HPV Aptima [facility]) ID Date Data Source [id number] 03/11/2021 12:00:00 AM EDT [facility]) Name Value Range Interpretation Code Description Data Amanda rce(s) Supporting Document(s) thin prep Pap smear Thin Prep Pap Sm ear [place] ([facility]) ID Date Data Source [id number] 03/11/2021 12:00:00 AM EDT [facility]) Name Value Range Interpretation Code Description Data Amanda rce(s) Supporting Document(s) thin prep Pap smear Thin Prep Pap Sm ear [facility] ([facility]) ID Date Data Source [id number] 03/11/2021 12:00:00 AM EDT [facility]) Name Value Range Interpretation Code Description Data Amanda rce(s) Supporting Document(s) thin prep Pap smear Thin Prep Pap Sm ear [facility] ([facility]) ID Date Data Source [id number] 03/11/2021 12:00:00 AM EDT [facility]) Name Value Range Interpretation Code Description Data Amanda rce(s) Supporting Document(s) thin prep Pap smear Thin Prep Pap Sm ear [facility] ([facility]) ID Date Data Source [id number] 03/03/2021 11:46:00 AM EDT [facility]) Name Value Range Interpretation Code Description Data Amanda rce(s) Supporting Document(s) thyroid peroxidase antibody 507.7 U/mL <60.0 Above high no rmal Thyroid Peroxidase Antibody [facility]) ID Date Data Source [id number] 03/03/2021 11:46:00 AM EDT [facility]) Name Value Range Interpretation Code Description Data Amanda rce(s) Supporting Document(s) total T3 144.6 NG/dL 60.0-181.0 Total T3 [facility]) ID Date Data Source [id number] 03/03/2021 11:46:00 AM EDT [facility]) Name Value Range Interpretation Code Description Data Amanda rce(s) Supporting Document(s) thyroid stimulating hormone 0.562 uIU/mL 0.358-3.740 Thyroid Stimulating Hormone [facility] ([facility]) free T4 1.27 NG/dL 0.76-1.46 Free T4 [place] ([facility]) ID Date Data Source [id number] 03/03/2021 11:46:00 AM EDT [facility]) Name Value Range Interpretation Code Description Data Amanda rce(s) Supporting Document(s) triglycerides level 314 mg/dL <150 Above high normal Triglycer ides Level [facility] ([facility]) cholesterol level 231 mg/dL <200 Above high normal Cholesterol Level [facility] ([facility]) Cholesterol in LDL [Mass/volume] in Serum or Plasma 137 mg/dL <100 Above high normal LDL Cholesterol [facility]) non-HDL-C 200 mg/dL Non-hdl-c [facility] ([facility]) HDL cholesterol 31 mg/dL >40 Below low normal HDL Cholestero l [facility] ([facility]) cholesterol risk ratio <5 Above high normal Choles terol Risk Ratio [facility] ([facility]) ID Date Data Source [id number] 03/03/2021 11:46:00 AM EDT [facility] ([facility]) Name Value Range Interpretation Code Description Data Amanda rce(s) Supporting Document(s) glucose, fasting 79 mg/dL 70-100 Glucose, Fasting AT [facility]) blood urea nitrogen 12 mg/dL 7-18 Blood Urea Nitro gen [facility] ([facility]) creatinine for GFR 0.74 mg/dL 0.55-1.30 Creatinine for GF R [facility] ([facility]) glomerular filtration rate > 60.0 >58 Glomerula r Filtration Rate [facility] ([facility]) potassium serum 4.7 mEq/L 3.5-5.1 Potassium Serum [facility] ([facility]) sodium level 141 mEq/L 136-145 Sodium Level [facility] ([facility]) chloride level 106 mEq/L 98-107 Chloride Level [facility] ([facility]) carbon dioxide level 27 mEq/L 21-32 Carbon Dioxide Level [facility] ([facility]) anion gap 8 mEq/L 8-16 Anion Gap [facility] ([facility] [place]) calcium level 9.3 mg/dL 8.5-10.1 Calcium Level [facility] ( [facility]) AST/SGOT 21 U/L 7-37 AST/SGOT [facility] ([facility] [place]) ALT/SGPT 36 U/L 12-78 ALT/SGPT [facility] ([facility] [place]) bilirubin,total 0.3 mg/dL 0.2-1.0 Bilirubin,total [facility] ([facility]) alkaline phosphatase 121 U/L 45-117 Above high normal Alkaline Phosphatase [place] ([facility]) albumin 3.6 gm/dL 3.2-5.2 Albumin [facility] ([facility] [place]) total protein 7.6 gm/dL 6.4-8.2 Total Protein [facility] ( [facility]) albumin/globulin ratio 1.2-2.2 Below low normal Albumin /globulin Ratio [facility] ([facility]) ID Date Data Source [id number] 03/03/2021 11:46:00 AM EDT [facility] ([facility]) Name Value Range Interpretation Code Description Data Amanda rce(s) Supporting Document(s) white blood count 7.2 10 4.0-10.0 White Blood Count [facility] ([facility]) red blood count 4.37 10 4.00-5.40 Red Blood Count [facility] ([facility]) hemoglobin 12.5 g/dL 12.0-15.5 Hemoglobin [facility] ([facility]) hematocrit 39.9 % 36.0-47.0 Hematocrit [facility] ([facility]) mean corpuscular volume 91.3 fL 80.0-96.0 Mean Corpusc ular Volume [facility] ([facility]) mean corpuscular hemoglobin 28.6 pg 27.0-33.0 Mean Cor puscular Hemoglobin [facility] ([facility]) red cell distribution width 13.7 % 11.5-14.5 Red Cell Distribution Width [facility] ([facility]) mean corpuscular HGB conc 31.3 g/dL 32.0-36.5 Below low kellie l Mean Corpuscular HGB Conc [facility] ([facility]) platelet count, automated 288 10 150-450 Platelet C ount, Automated [facility] ([facility]) neutrophils % 61.9 % 36.0-66.0 Neutrophils % [facility] ( [facility]) mono % 8.3 % 2.0-8.0 Above high normal [place] % [facility] ([facility]) lymph % 27.5 % 24.0-44.0 Lymph % [facility]) baso % 1.1 % 0.0-1.0 Above high normal Baso % [facility]) eos % 0.6 % 0.0-3.0 Eos % [facility]) nucleated red blood cell % 0.0 % 0-0 Nucleated Red Blood Cell % [facility]) immature granulocyte % 0.6 % 0-3.0 Immature Gran ulocyte % [place] ([facility]) lymph # 2.0 10 1.5-5.0 Lymph # [place] ([facility]) neutrophils # 4.5 10 1.5-8.5 Neutrophils # [place] ( [facility]) mono # 0.6 10 0.0-0.8 [place] # [place] ([facility]) eos # 0.0 10 0.0-0.5 Eos # [place] ([facility]) baso # 0.1 10 0.0-0.2 Baso # [place] ([facility]) ID Date Data Source [id number] 03/03/2021 11:46:00 AM EDT [place] ([facility]) Name Value Range Interpretation Code Description Data Amanda rce(s) Supporting Document(s) thyroid peroxidase antibody 507.7 U/mL <60.0 Above high no rmal Thyroid Peroxidase Antibody [place] ([facility]) ID Date Data Source [id number] 03/03/2021 11:46:00 AM EDT [facility]) Name Value Range Interpretation Code Description Data Amanda rce(s) Supporting Document(s) total T3 144.6 NG/dL 60.0-181.0 Total T3 [place] ([facility]) ID Date Data Source [id number] 03/03/2021 11:46:00 AM EDT [facility]) Name Value Range Interpretation Code Description Data Amanda rce(s) Supporting Document(s) thyroid stimulating hormone 0.562 uIU/mL 0.358-3.740 Thyroid Stimulating Hormone [place] [facility]) free T4 1.27 NG/dL 0.76-1.46 Free T4 [facility] ([facility]) ID Date Data Source [id number] 03/03/2021 11:46:00 AM EDT [facility] ([facility]) Name Value Range Interpretation Code Description Data Amanda rce(s) Supporting Document(s) triglycerides level 314 mg/dL <150 Above high normal Triglycer ides Level [facility] ([facility]) cholesterol level 231 mg/dL <200 Above high normal Cholesterol Level [facility] ([facility]) Cholesterol in LDL [Mass/volume] in Serum or Plasma 137 mg/dL <100 Above high normal LDL Cholesterol [facility]) HDL cholesterol 31 mg/dL >40 Below low normal HDL Cholestero l [facility] ([facility]) non-HDL-C 200 mg/dL Non-hdl-c [facility]) cholesterol risk ratio <5 Above high normal Choles terol Risk Ratio [place] ([facility]) ID Date Data Source [id number] 03/03/2021 11:46:00 AM EDT [place] ([facility]) Name Value Range Interpretation Code Description Data Amanda rce(s) Supporting Document(s) glucose, fasting 79 mg/dL 70-100 Glucose, Fasting AT [facility]) glomerular filtration rate > 60.0 >58 Glomerula r Filtration Rate [facility]) creatinine for GFR 0.74 mg/dL 0.55-1.30 Creatinine for GF R [facility] ([facility]) blood urea nitrogen 12 mg/dL 7-18 Blood Urea Nitro gen [facility] ([facility]) sodium level 141 mEq/L 136-145 Sodium Level [facility] ([facility]) potassium serum 4.7 mEq/L 3.5-5.1 Potassium Serum [facility] ([facility]) chloride level 106 mEq/L 98-107 Chloride Level [place] ([facility]) carbon dioxide level 27 mEq/L 21-32 Carbon Dioxide Level [place] ([facility]) anion gap 8 mEq/L 8-16 Anion Gap [facility] ([facility]) calcium level 9.3 mg/dL 8.5-10.1 Calcium Level [facility] ( [facility]) AST/SGOT 21 U/L 7-37 AST/SGOT [facility] ([facility]) alkaline phosphatase 121 U/L 45-117 Above high normal Alkaline Phosphatase [facility] ([facility]) ALT/SGPT 36 U/L 12-78 ALT/SGPT [facility] ([facility]) albumin 3.6 gm/dL 3.2-5.2 Albumin [facility] ([facility]) bilirubin,total 0.3 mg/dL 0.2-1.0 Bilirubin,total [facility] ([facility]) total protein 7.6 gm/dL 6.4-8.2 Total Protein [facility] ( [facility]) albumin/globulin ratio 1.2-2.2 Below low normal Albumin /globulin Ratio [facility] ([facility]) ID Date Data Source [id number] 03/03/2021 11:46:00 AM EDT [facility] ([facility]) Name Value Range Interpretation Code Description Data Amanda rce(s) Supporting Document(s) white blood count 7.2 10 4.0-10.0 White Blood Count [facility] ([facility]) red blood count 4.37 10 4.00-5.40 Red Blood Count [facility] ([facility]) hemoglobin 12.5 g/dL 12.0-15.5 Hemoglobin [facility] ([facility]) hematocrit 39.9 % 36.0-47.0 Hematocrit [facility] ([facility]) mean corpuscular volume 91.3 fL 80.0-96.0 Mean Corpusc ular Volume [facility] ([facility]) mean corpuscular hemoglobin 28.6 pg 27.0-33.0 Mean Cor puscular Hemoglobin [facility] ([facility]) mean corpuscular HGB conc 31.3 g/dL 32.0-36.5 Below low kellie l Mean Corpuscular HGB Conc [facility] ([facility]) platelet count, automated 288 10 150-450 Platelet C ount, Automated [facility] ([facility]) red cell distribution width 13.7 % 11.5-14.5 Red Cell Distribution Width [facility] ([facility]) lymph % 27.5 % 24.0-44.0 Lymph % [place] [facility] [place] neutrophils % 61.9 % 36.0-66.0 Neutrophils % [place] ( [facility]) eos % 0.6 % 0.0-3.0 Eos % [place] ([facility]) mono % 8.3 % 2.0-8.0 Above high normal [place] % [place] ([facility]) immature granulocyte % 0.6 % 0-3.0 Immature Gran ulocyte % [place] ([facility]) baso % 1.1 % 0.0-1.0 Above high normal Baso % [place] ([facility]) nucleated red blood cell % 0.0 % 0-0 Nucleated Red Blood Cell % [place] ([facility]) neutrophils # 4.5 10 1.5-8.5 Neutrophils # [place] ( [facility]) mono # 0.6 10 0.0-0.8 [place] # [place] ([facility]) lymph # 2.0 10 1.5-5.0 Lymph # [place] ([facility] [place]) baso # 0.1 10 0.0-0.2 Baso # [place] ([facility] [place]) eos # 0.0 10 0.0-0.5 Eos # [place] ([facility] [place]) ID Date Data Source [id number] 03/03/2021 11:46:00 AM EDT [place] ([facility]) Name Value Range Interpretation Code Description Data Amanda rce(s) Supporting Document(s) total T3 144.6 NG/dL 60.0-181.0 Total T3 [place] ([facility]) ID Date Data Source [id number] 03/03/2021 11:46:00 AM EDT [place] ([facility]) Name Value Range Interpretation Code Description Data Amanda rce(s) Supporting Document(s) thyroid stimulating hormone 0.562 uIU/mL 0.358-3.740 Thyroid Stimulating Hormone [place] ([facility]) free T4 1.27 NG/dL 0.76-1.46 Free T4 [place] ([facility]) ID Date Data Source [id number] 03/03/2021 11:46:00 AM EDT [place] ([facility]) Name Value Range Interpretation Code Description Data Amanda rce(s) Supporting Document(s) triglycerides level 314 mg/dL <150 Above high normal Triglycer ides Level [place] ([facility]) HDL cholesterol 31 mg/dL >40 Below low normal HDL Cholestero l [place] ([facility]) cholesterol level 231 mg/dL <200 Above high normal Cholesterol Level [place] ([facility]) Cholesterol in LDL [Mass/volume] in Serum or Plasma 137 mg/dL <100 Above high normal LDL Cholesterol [facility] ([facility]) non-HDL-C 200 mg/dL Non-hdl-c [place] ([facility] [place]) cholesterol risk ratio <5 Above high normal Choles terol Risk Ratio [place] ([facility]) ID Date Data Source [id number] 03/03/2021 11:46:00 AM EDT [facility]) Name Value Range Interpretation Code Description Data Amanda rce(s) Supporting Document(s) blood urea nitrogen 12 mg/dL 7-18 Blood Urea Nitro gen [place] ([facility]) glucose, fasting 79 mg/dL 70-100 Glucose, Fasting AT [facility] ([facility]) creatinine for GFR 0.74 mg/dL 0.55-1.30 Creatinine for GF R [place] ([facility]) glomerular filtration rate > 60.0 >58 Glomerula r Filtration Rate [place] ([facility]) sodium level 141 mEq/L 136-145 Sodium Level [facility] chloride level 106 mEq/L 98-107 Chloride Level [place] ([facility]) potassium serum 4.7 mEq/L 3.5-5.1 Potassium Serum [facility] ([facility]) anion gap 8 mEq/L 8-16 Anion Gap [place] ([facility]) carbon dioxide level 27 mEq/L 21-32 Carbon Dioxide Level [place] ([facility]) AST/SGOT 21 U/L 7-37 AST/SGOT [place] ([facility]) calcium level 9.3 mg/dL 8.5-10.1 Calcium Level [place] ( [facility]) alkaline phosphatase 121 U/L 45-117 Above high normal Alkaline Phosphatase [place] ([facility]) ALT/SGPT 36 U/L 12-78 ALT/SGPT [place] ([facility]) bilirubin,total 0.3 mg/dL 0.2-1.0 Bilirubin,total [facility] ([facility]) total protein 7.6 gm/dL 6.4-8.2 Total Protein [place] ( [facility]) albumin 3.6 gm/dL 3.2-5.2 Albumin [place] ([facility]) albumin/globulin ratio 1.2-2.2 Below low normal Albumin /globulin Ratio [facility] ([facility]) ID Date Data Source [id number] 03/03/2021 11:46:00 AM EDT [place] ([facility]) Name Value Range Interpretation Code Description Data Amanda rce(s) Supporting Document(s) white blood count 7.2 10 4.0-10.0 White Blood Count [place] ([facility]) red blood count 4.37 10 4.00-5.40 Red Blood Count [facility] ([facility]) hematocrit 39.9 % 36.0-47.0 Hematocrit [place] ([facility]) hemoglobin 12.5 g/dL 12.0-15.5 Hemoglobin [place] ([facility]) mean corpuscular volume 91.3 fL 80.0-96.0 Mean Corpusc ular Volume [place] ([facility]) mean corpuscular hemoglobin 28.6 pg 27.0-33.0 Mean Cor puscular Hemoglobin [place] ([facility]) mean corpuscular HGB conc 31.3 g/dL 32.0-36.5 Below low kellie l Mean Corpuscular HGB Conc [place] ([facility]) red cell distribution width 13.7 % 11.5-14.5 Red Cell Distribution Width [place] ([facility]) platelet count, automated 288 10 150-450 Platelet C ount, Automated [place] ([facility]) neutrophils % 61.9 % 36.0-66.0 Neutrophils % [place] ( [facility]) mono % 8.3 % 2.0-8.0 Above high normal [place] % [place] ([facility]) lymph % 27.5 % 24.0-44.0 Lymph % [place] ([facility]) eos % 0.6 % 0.0-3.0 Eos % [place] ([facility]) immature granulocyte % 0.6 % 0-3.0 Immature Gran ulocyte % [place] ([facility]) baso % 1.1 % 0.0-1.0 Above high normal Baso % [place] ([facility]) neutrophils # 4.5 10 1.5-8.5 Neutrophils # [place] ( [facility]) nucleated red blood cell % 0.0 % 0-0 Nucleated Red Blood Cell % [place] ([facility]) lymph # 2.0 10 1.5-5.0 Lymph # [place] ([facility] [place]) mono # 0.6 10 0.0-0.8 [place] # [place] ([facility]) eos # 0.0 10 0.0-0.5 Eos # [place] ([facility]) baso # 0.1 10 0.0-0.2 Baso # [place] ([facility] [place]) ID Date Data Source [id number] 01/14/2021 08:19:00 AM EDT [place] ([facility]) Name Value Range Interpretation Code Description Data Amanda rce(s) Supporting Document(s) ID Date Data Source [id number] 01/14/2021 08:19:00 AM EDT [place] ([facility]) Name Value Range Interpretation Code Description Data Amanda rce(s) Supporting Document(s) Hemoglobin A1c/Hemoglobin.total in Blood 5.8 % Hemoglobin a1C [place] ([facility]) estimated average glucose 120 mg/dL 60-110 Above high norm al Estimated Average Glucose [facility]) ID Date Data Source [id number] 01/14/2021 08:19:00 AM EDT [place] ([facility]) Name Value Range Interpretation Code Description Data Amanda rce(s) Supporting Document(s) total 25(oh) vitamin D 15.4 NG/mL 30.0-100.0 Below low normal T otal 25(Oh) Vitamin D [place] ([facility]) ID Date Data Source [id number] 01/14/2021 08:19:00 AM EDT [place] ([facility]) Name Value Range Interpretation Code Description Data Amanda rce(s) Supporting Document(s) thyroid stimulating hormone 67.900 uIU/mL 0.358-3.740 Above high n ormal Thyroid Stimulating Hormone [place] ([facility]) free T4 0.52 NG/dL 0.76-1.46 Below low normal Free T4 [place] ( [facility]) ID Date Data Source [id number] 01/14/2021 08:19:00 AM EDT [place] ([facility]) Name Value Range Interpretation Code Description Data Amanda rce(s) Supporting Document(s) triglycerides level 285 mg/dL <150 Above high normal Triglycer ides Level [place] ([facility]) cholesterol level 312 mg/dL <200 Above high normal Cholesterol Level [place] ([facility]) HDL cholesterol 34 mg/dL >40 Below low normal HDL Cholestero l [place] ([facility]) non-HDL-C 278 mg/dL Non-hdl-c [place] ([facility] [place]) Cholesterol in LDL [Mass/volume] in Serum or Plasma 221 mg/dL <100 Above high normal LDL Cholesterol [facility] ([facility]) cholesterol risk ratio <5 Above high normal Choles terol Risk Ratio [place] ([facility]) ID Date Data Source [id number] 01/14/2021 08:19:00 AM EDT [place] ([facility]) Name Value Range Interpretation Code Description Data Amanda rce(s) Supporting Document(s) glucose, fasting 92 mg/dL 70-100 Glucose, Fasting AT [facility] ([facility]) glomerular filtration rate > 60.0 >58 Glomerula r Filtration Rate [place] ([facility]) blood urea nitrogen 16 mg/dL 7-18 Blood Urea Nitro gen [place] ([facility]) creatinine for GFR 0.95 mg/dL 0.55-1.30 Creatinine for GF R [place] ([facility]) chloride level 106 mEq/L 98-107 Chloride Level [place] ([facility]) sodium level 140 mEq/L 136-145 Sodium Level [place] ([facility]) carbon dioxide level 27 mEq/L 21-32 Carbon Dioxide Level [place] ([facility]) potassium serum 4.1 mEq/L 3.5-5.1 Potassium Serum [facility] ([facility]) anion gap 7 mEq/L 8-16 Below low normal Anion Gap [place] ( [facility]) calcium level 9.3 mg/dL 8.5-10.1 Calcium Level [place] ( [facility]) AST/SGOT 30 U/L 7-37 AST/SGOT [place] ([facility]) alkaline phosphatase 171 U/L 45-117 Above high normal Alkaline Phosphatase [place] ([facility]) ALT/SGPT 37 U/L 12-78 ALT/SGPT [place] ([facility]) bilirubin,total 0.3 mg/dL 0.2-1.0 Bilirubin,total [facility] ([facility]) albumin/globulin ratio 1.2-2.2 Below low normal Albumin /globulin Ratio [place] ([facility]) total protein 7.6 gm/dL 6.4-8.2 Total Protein [place] ( [facility]) albumin 3.7 gm/dL 3.2-5.2 Albumin [place] ([facility]) ID Date Data Source [id number] 01/14/2021 08:19:00 AM EDT [place] ([facility]) Name Value Range Interpretation Code Description Data Amanda rce(s) Supporting Document(s) pH,urine 6.0 units 5.0-9.0 pH,urine [place] ([facility]) color, urine yellow yellow Color, Urine [place] (No Counts include [facility] beds at [facility]) appearance, urine hazy clear Appearance, Urine [place] ([facility]) glucose, urine (UA) auto negative negative Glucose, Ur ine (UA) Auto [place] ([facility]) specific gravity urine auto 1.002-1.035 Specifi c [place] Urine Auto [place] ([facility]) ketone, urine auto negative negative Ketone, Urine Aut o [place] ([facility]) protein, urine auto negative negative Protein, Urine A uto [place] ([facility]) nitrite, urine auto negative negative Nitrite, Urine A uto [place] ([facility]) urobilinogen, urine auto 0.2 mg/dL 0.0-2.0 Urobilinoge n, Urine Auto [place] ([facility]) bilirubin, urine auto negative negative Bilirubin, Uri ne Auto [place] ([facility]) WBC, urine auto 1 /hpf 0-3 WBC, Urine Auto [facility] ([facility]) leukocyte esterase, urine auto negative negative Leukocyte Esterase, Urine Auto [place] ([facility]) blood, urine blood negative negative Blood, Urine Bloo d [place] ([facility]) hyaline cast, urine auto 0 /lpf 0-1 Hyaline Wolf t, Urine Auto [place] ([facility]) bacteria, urine auto negative negative Bacteria, Urine Auto [place] ([facility]) squamous epithelial cell ur AU 6 /hpf 0-6 Squam ous Epithelial Cell Ur AU [place] ([facility]) RBC, urine auto 0 /hpf 0-3 RBC, Urine Auto [facility] ([facility]) ID Date Data Source [id number] 01/14/2021 08:19:00 AM EDT [place] ([facility]) Name Value Range Interpretation Code Description Data Amanda rce(s) Supporting Document(s) white blood count 8.7 10 4.0-10.0 White Blood Count [place] ([facility]) red blood count 4.26 10 4.00-5.40 Red Blood Count [facility] ([facility]) mean corpuscular volume 91.1 fL 80.0-96.0 Mean Corpusc ular Volume [place] ([facility]) hematocrit 38.8 % 36.0-47.0 Hematocrit [place] ([facility]) hemoglobin 12.3 g/dL 12.0-15.5 Hemoglobin [place] ([facility]) red cell distribution width 14.6 % 11.5-14.5 Above high no rmal Red Cell Distribution Width [place] ([facility]) mean corpuscular HGB conc 31.7 g/dL 32.0-36.5 Below low kellie l Mean Corpuscular HGB Conc [place] ([facility]) mean corpuscular hemoglobin 28.9 pg 27.0-33.0 Mean Cor puscular Hemoglobin [place] ([facility]) neutrophils % 65.8 % 36.0-66.0 Neutrophils % [place] ( [facility]) platelet count, automated 237 10 150-450 Platelet C ount, Automated [place] ([facility]) lymph % 23.0 % 24.0-44.0 Below low normal Lymph % [place] ( [facility]) eos % 0.9 % 0.0-3.0 Eos % [place] ([facility]) mono % 7.8 % 2.0-8.0 [place] % [place] ([facility]) baso % 1.5 % 0.0-1.0 Above high normal Baso % [place] ([facility]) nucleated red blood cell % 0.0 % 0-0 Nucleated Red Blood Cell % [place] ([facility]) neutrophils # 5.8 10 1.5-8.5 Neutrophils # [place] ( [facility]) immature granulocyte % 1.0 % 0-3.0 Immature Gran ulocyte % [place] ([facility]) lymph # 2.0 10 1.5-5.0 Lymph # [place] ([facility]) eos # 0.1 10 0.0-0.5 Eos # [place] ([facility]) mono # 0.7 10 0.0-0.8 [place] # [place] ([facility]) baso # 0.1 10 0.0-0.2 Baso # [place] ([facility]) ID Date Data Source [id number] 01/14/2021 08:19:00 AM EDT [place] ([facility]) Name Value Range Interpretation Code Description Data Amanda rce(s) Supporting Document(s) ID Date Data Source [id number] 01/14/2021 08:19:00 AM EDT [facility]) Name Value Range Interpretation Code Description Data Amanda rce(s) Supporting Document(s) Hemoglobin A1c/Hemoglobin.total in Blood 5.8 % Hemoglobin a1C [place] ([facility]) estimated average glucose 120 mg/dL 60-110 Above high norm al Estimated Average Glucose [place] ([facility]) ID Date Data Source [id number] 01/14/2021 08:19:00 AM EDT [place] ([facility]) Name Value Range Interpretation Code Description Data Amanda rce(s) Supporting Document(s) total 25(oh) vitamin D 15.4 NG/mL 30.0-100.0 Below low normal T otal 25(Oh) Vitamin D [facility]) ID Date Data Source [id number] 01/14/2021 08:19:00 AM EDT [facility]) Name Value Range Interpretation Code Description Data Amanda rce(s) Supporting Document(s) free T4 0.52 NG/dL 0.76-1.46 Below low normal Free T4 [place] ( [facility]) thyroid stimulating hormone 67.900 uIU/mL 0.358-3.740 Above high n ormal Thyroid Stimulating Hormone [place] ([facility]) ID Date Data Source [id number] 01/14/2021 08:19:00 AM EDT [place] ([facility]) Name Value Range Interpretation Code Description Data Amanda rce(s) Supporting Document(s) triglycerides level 285 mg/dL <150 Above high normal Triglycer ides Level [place] ([facility]) cholesterol level 312 mg/dL <200 Above high normal Cholesterol Level [place] ([facility]) non-HDL-C 278 mg/dL Non-hdl-c [place] ([facility]) HDL cholesterol 34 mg/dL >40 Below low normal HDL Cholestero l [facility] ([facility]) Cholesterol in LDL [Mass/volume] in Serum or Plasma 221 mg/dL <100 Above high normal LDL Cholesterol [facility] ([facility]) cholesterol risk ratio <5 Above high normal Choles terol Risk Ratio [place] ([facility]) ID Date Data Source [id number] 01/14/2021 08:19:00 AM EDT [place] ([facility]) Name Value Range Interpretation Code Description Data Amanda rce(s) Supporting Document(s) glucose, fasting 92 mg/dL 70-100 Glucose, Fasting AT [facility] ([facility]) blood urea nitrogen 16 mg/dL 7-18 Blood Urea Nitro gen [place] ([facility]) creatinine for GFR 0.95 mg/dL 0.55-1.30 Creatinine for GF R [place] ([facility]) sodium level 140 mEq/L 136-145 Sodium Level [place] (No Counts include 234 beds at the [facility]) glomerular filtration rate > 60.0 >58 Glomerula r Filtration Rate [place] ([facility]) potassium serum 4.1 mEq/L 3.5-5.1 Potassium Serum [facility] ([facility]) anion gap 7 mEq/L 8-16 Below low normal Anion Gap [place] ( [facility]) carbon dioxide level 27 mEq/L 21-32 Carbon Dioxide Level [place] ([facility]) chloride level 106 mEq/L 98-107 Chloride Level [place] ([facility]) AST/SGOT 30 U/L 7-37 AST/SGOT [place] ([facility]) calcium level 9.3 mg/dL 8.5-10.1 Calcium Level [place] ( [facility]) ALT/SGPT 37 U/L 12-78 ALT/SGPT [place] ([facility]) alkaline phosphatase 171 U/L 45-117 Above high normal Alkaline Phosphatase [place] ([facility]) bilirubin,total 0.3 mg/dL 0.2-1.0 Bilirubin,total [facility] ([facility]) total protein 7.6 gm/dL 6.4-8.2 Total Protein [place] ( [facility]) albumin 3.7 gm/dL 3.2-5.2 Albumin [place] ([facility]) albumin/globulin ratio 1.2-2.2 Below low normal Albumin /globulin Ratio [place] ([facility]) ID Date Data Source [id number] 01/14/2021 08:19:00 AM EDT [place] ([facility]) Name Value Range Interpretation Code Description Data Amanda rce(s) Supporting Document(s) appearance, urine hazy clear Appearance, Urine [place] ([facility]) color, urine yellow yellow Color, Urine [place] (No Counts include 234 beds at the [facility]) specific gravity urine auto 1.002-1.035 Specifi c [place] Urine Auto [place] ([facility]) pH,urine 6.0 units 5.0-9.0 pH,urine [place] ([facility]) protein, urine auto negative negative Protein, Urine A uto [place] ([facility]) ketone, urine auto negative negative Ketone, Urine Aut o [place] ([facility]) glucose, urine (UA) auto negative negative Glucose, Ur ine (UA) Auto [place] ([facility]) leukocyte esterase, urine auto negative negative Leukocyte Esterase, Urine Auto [place] ([facility]) nitrite, urine auto negative negative Nitrite, Urine A uto [place] ([facility]) bilirubin, urine auto negative negative Bilirubin, Uri ne Auto [place] ([facility]) urobilinogen, urine auto 0.2 mg/dL 0.0-2.0 Urobilinoge n, Urine Auto [place] ([facility]) WBC, urine auto 1 /hpf 0-3 WBC, Urine Auto [facility] ([facility]) blood, urine blood negative negative Blood, Urine Bloo d [place] ([facility]) RBC, urine auto 0 /hpf 0-3 RBC, Urine Auto [facility] ([facility]) bacteria, urine auto negative negative Bacteria, Urine Auto [place] ([facility]) squamous epithelial cell ur AU 6 /hpf 0-6 Squam ous Epithelial Cell Ur AU [place] ([facility]) hyaline cast, urine auto 0 /lpf 0-1 Hyaline Wolf t, Urine Auto [place] ([facility]) ID Date Data Source [id number] 01/14/2021 08:19:00 AM EDT [place] ([facility]) Name Value Range Interpretation Code Description Data Amanda rce(s) Supporting Document(s) white blood count 8.7 10 4.0-10.0 White Blood Count [place] ([facility]) red blood count 4.26 10 4.00-5.40 Red Blood Count [facility] ([facility]) hemoglobin 12.3 g/dL 12.0-15.5 Hemoglobin [place] ([facility]) hematocrit 38.8 % 36.0-47.0 Hematocrit [place] ([facility]) mean corpuscular volume 91.1 fL 80.0-96.0 Mean Corpusc ular Volume [place] ([facility]) mean corpuscular HGB conc 31.7 g/dL 32.0-36.5 Below low kellie l Mean Corpuscular HGB Conc [place] ([facility]) red cell distribution width 14.6 % 11.5-14.5 Above high no rmal Red Cell Distribution Width [place] ([facility]) mean corpuscular hemoglobin 28.9 pg 27.0-33.0 Mean Cor puscular Hemoglobin [facility] ([facility]) platelet count, automated 237 10 150-450 Platelet C ount, Automated [place] ([facility]) neutrophils % 65.8 % 36.0-66.0 Neutrophils % [place] ( [facility]) lymph % 23.0 % 24.0-44.0 Below low normal Lymph % [facility] ( [facility]) mono % 7.8 % 2.0-8.0 [place] % [facility] ([facility]) eos % 0.9 % 0.0-3.0 Eos % [place] ([facility]) nucleated red blood cell % 0.0 % 0-0 Nucleated Red Blood Cell % [facility] ([facility]) baso % 1.5 % 0.0-1.0 Above high normal Baso % [place] ([facility]) immature granulocyte % 1.0 % 0-3.0 Immature Gran ulocyte % [facility] ([facility]) neutrophils # 5.8 10 1.5-8.5 Neutrophils # [facility] ( [facility]) lymph # 2.0 10 1.5-5.0 Lymph # [place] ([facility]) eos # 0.1 10 0.0-0.5 Eos # [facility] ([facility]) mono # 0.7 10 0.0-0.8 [place] # [facility] ([facility]) baso # 0.1 10 0.0-0.2 Baso # [facility] ([facility]) ID Date Data Source [id number] 01/14/2021 08:19:00 AM EDT [place] ([facility]) Name Value Range Interpretation Code Description Data Amanda rce(s) Supporting Document(s) ID Date Data Source [id number] 01/14/2021 08:19:00 AM EDT [place] ([facility]) Name Value Range Interpretation Code Description Data Amanda rce(s) Supporting Document(s) Hemoglobin A1c/Hemoglobin.total in Blood 5.8 % Hemoglobin a1C [place] ([facility]) estimated average glucose 120 mg/dL 60-110 Above high norm al Estimated Average Glucose [place] ([facility]) ID Date Data Source [id number] 01/14/2021 08:19:00 [facility] Name Value Range Interpretation Code Description Data Amanda rce(s) Supporting Document(s) total 25(oh) vitamin D 15.4 NG/mL 30.0-100.0 Below low normal T otal 25(Oh) Vitamin D [place] ([facility]) ID Date Data Source [id number] 01/14/2021 08:19:00 AM EDT [facility]) Name Value Range Interpretation Code Description Data Amanda rce(s) Supporting Document(s) thyroid stimulating hormone 67.900 uIU/mL 0.358-3.740 Above high n ormal Thyroid Stimulating Hormone [place] ([facility]) free T4 0.52 NG/dL 0.76-1.46 Below low normal Free T4 [place] ( [facility]) ID Date Data Source [id number] 01/14/2021 08:19:00 AM [facility] Name Value Range Interpretation Code Description Data Amanda rce(s) Supporting Document(s) triglycerides level 285 mg/dL <150 Above high normal Triglycer ides Level [place] ([facility]) HDL cholesterol 34 mg/dL >40 Below low normal HDL Cholestero l [facility] ([facility]) Cholesterol in LDL [Mass/volume] in Serum or Plasma 221 mg/dL <100 Above high normal LDL Cholesterol [facility] ([facility]) cholesterol level 312 mg/dL <200 Above high normal Cholesterol Level [facility] ([facility]) non-HDL-C 278 mg/dL Non-hdl-c [facility] ([facility]) cholesterol risk ratio <5 Above high normal Choles terol Risk Ratio [facility] Center) ID Date Data Source [id number] 01/14/2021 08:19:00 AM EDT [facility] ([facility]) Name Value Range Interpretation Code Description Data Amanda rce(s) Supporting Document(s) glucose, fasting 92 mg/dL 70-100 Glucose, Fasting AT [place] ([facility]) glomerular filtration rate > 60.0 >58 Glomerula r Filtration Rate [facility] ([facility]) blood urea nitrogen 16 mg/dL 7-18 Blood Urea Nitro gen [facility] ([facility]) creatinine for GFR 0.95 mg/dL 0.55-1.30 Creatinine for GF R [facility] ([facility]) sodium level 140 mEq/L 136-145 Sodium Level [facility] ([facility]) potassium serum 4.1 mEq/L 3.5-5.1 Potassium Serum [facility] ([facility]) chloride level 106 mEq/L 98-107 Chloride Level [facility] ([facility]) carbon dioxide level 27 mEq/L 21-32 Carbon Dioxide Level [facility] ([facility]) anion gap 7 mEq/L 8-16 Below low normal Anion Gap [facility] ( [facility]) AST/SGOT 30 U/L 7-37 AST/SGOT [facility] ([facility]) calcium level 9.3 mg/dL 8.5-10.1 Calcium Level [facility] ( [facility]) alkaline phosphatase 171 U/L 45-117 Above high normal Alkaline Phosphatase [facility] ([facility]) bilirubin,total 0.3 mg/dL 0.2-1.0 Bilirubin,total ATHE NA ([facility]) ALT/SGPT 37 U/L 12-78 ALT/SGPT [facility] ([facility]) albumin/globulin ratio 1.2-2.2 Below low normal Albumin /globulin Ratio [facility] ([facility]) albumin 3.7 gm/dL 3.2-5.2 Albumin [facility] ([facility]) total protein 7.6 gm/dL 6.4-8.2 Total Protein [facility] ( [facility]) ID Date Data Source [id number] 01/14/2021 08:19:00 AM EDT [facility] ([facility]) Name Value Range Interpretation Code Description Data Amanda rce(s) Supporting Document(s) appearance, urine hazy clear Appearance, Urine [facility] ([facility]) color, urine yellow yellow Color, Urine [facility] (No Counts include 234 beds at the [facility]) pH,urine 6.0 units 5.0-9.0 pH,urine [facility] ([facility]) specific gravity urine auto 1.002-1.035 Specifi c [place] Urine Auto [facility] ([facility]) protein, urine auto negative negative Protein, Urine A uto [facility] ([facility]) ketone, urine auto negative negative Ketone, Urine Aut o [facility] ([facility]) glucose, urine (UA) auto negative negative Glucose, Ur ine (UA) Auto [facility] ([facility]) urobilinogen, urine auto 0.2 mg/dL 0.0-2.0 Urobilinoge n, Urine Auto [facility] ([facility]) nitrite, urine auto negative negative Nitrite, Urine A uto [facility] ([facility]) bilirubin, urine auto negative negative Bilirubin, Uri ne Auto [facility] ([facility]) blood, urine blood negative negative Blood, Urine Bloo d [facility] ([facility]) WBC, urine auto 1 /hpf 0-3 WBC, Urine Auto ATHE NA ([facility]) leukocyte esterase, urine auto negative negative Leukocyte Esterase, Urine Auto [facility] ([facility]) bacteria, urine auto negative negative Bacteria, Urine Auto [facility] ([facility]) RBC, urine auto 0 /hpf 0-3 RBC, Urine Auto ATHE NA ([facility]) hyaline cast, urine auto 0 /lpf 0-1 Hyaline Wolf t, Urine Auto [facility] ([facility]) squamous epithelial cell ur AU 6 /hpf 0-6 Squam ous Epithelial Cell Ur AU [facility] ([facility]) ID Date Data Source [id number] 01/14/2021 08:19:00 AM EDT [facility] ([facility]) Name Value Range Interpretation Code Description Data Amanda rce(s) Supporting Document(s) white blood count 8.7 10 4.0-10.0 White Blood Count [facility] ([facility]) hemoglobin 12.3 g/dL 12.0-15.5 Hemoglobin [facility] ([facility]) red blood count 4.26 10 4.00-5.40 Red Blood Count AT[facility] NA ([facility]) hematocrit 38.8 % 36.0-47.0 Hematocrit [facility] ([facility]) mean corpuscular volume 91.1 fL 80.0-96.0 Mean Corpusc ular Volume [facility] ([facility]) mean corpuscular HGB conc 31.7 g/dL 32.0-36.5 Below low kellie l Mean Corpuscular HGB Conc [facility] ([facility]) mean corpuscular hemoglobin 28.9 pg 27.0-33.0 Mean Cor puscular Hemoglobin [facility] ([facility]) red cell distribution width 14.6 % 11.5-14.5 Above high no rmal Red Cell Distribution Width [facility] ([facility]) platelet count, automated 237 10 150-450 Platelet C ount, Automated [facility] ([facility]) mono % 7.8 % 2.0-8.0 [place] % [facility] ([facility]) lymph % 23.0 % 24.0-44.0 Below low normal Lymph % [facility] ( [facility]) neutrophils % 65.8 % 36.0-66.0 Neutrophils % [facility] ( [facility]) eos % 0.9 % 0.0-3.0 Eos % [facility] ([facility]) baso % 1.5 % 0.0-1.0 Above high normal Baso % [place] ([facility]) nucleated red blood cell % 0.0 % 0-0 Nucleated Red Blood Cell % [facility] ([facility]) immature granulocyte % 1.0 % 0-3.0 Immature Gran ulocyte % [place] ([facility]) lymph # 2.0 10 1.5-5.0 Lymph # [facility] ([facility]) neutrophils # 5.8 10 1.5-8.5 Neutrophils # [facility] ( [facility]) mono # 0.7 10 0.0-0.8 [place] # [facility] ([facility]) eos # 0.1 10 0.0-0.5 Eos # [facility] ([facility]) baso # 0.1 10 0.0-0.2 Baso # [facility] ([facility]) ID Date Data Source [id number] 01/14/2021 08:19:00 AM EDT [place] ([facility]) Name Value Range Interpretation Code Description Data Amanda rce(s) Supporting Document(s) ID Date Data Source [id number] 01/14/2021 08:19:00 AM EDT [place] ([facility]) Name Value Range Interpretation Code Description Data Amanda rce(s) Supporting Document(s) Hemoglobin A1c/Hemoglobin.total in Blood 5.8 % Hemoglobin a1C [place] ([facility]) estimated average glucose 120 mg/dL 60-110 Above high norm al Estimated Average Glucose [place] ([facility]) ID Date Data Source [id number] 01/14/2021 08:19:00 AM EDT [facility]) Name Value Range Interpretation Code Description Data Amanda rce(s) Supporting Document(s) total 25(oh) vitamin D 15.4 NG/mL 30.0-100.0 Below low normal T otal 25(Oh) Vitamin D [place] ([facility]) ID Date Data Source [id number] 01/14/2021 08:19:00 AM EDT [facility]) Name Value Range Interpretation Code Description Data Amanda rce(s) Supporting Document(s) thyroid stimulating hormone 67.900 uIU/mL 0.358-3.740 Above high n ormal Thyroid Stimulating Hormone [facility] ([facility]) free T4 0.52 NG/dL 0.76-1.46 Below low normal Free T4 [facility] ( [facility]) ID Date Data Source [id number] 01/14/2021 08:19:00 AM EDT [facility] ([facility]) Name Value Range Interpretation Code Description Data Amanda rce(s) Supporting Document(s) HDL cholesterol 34 mg/dL >40 Below low normal HDL Cholestero l [facility] ([facility]) cholesterol level 312 mg/dL <200 Above high normal Cholesterol Level [facility] ([facility]) triglycerides level 285 mg/dL <150 Above high normal Triglycer ides Level [facility] ([facility]) Cholesterol in LDL [Mass/volume] in Serum or Plasma 221 mg/dL <100 Above high normal LDL Cholesterol [facility] ([facility]) non-HDL-C 278 mg/dL Non-hdl-c [facility] ([facility]) cholesterol risk ratio <5 Above high normal Choles terol Risk Ratio [facility] ([facility]) ID Date Data Source [id number] 01/14/2021 08:19:00 AM EDT [facility]) Name Value Range Interpretation Code Description Data Amanda rce(s) Supporting Document(s) blood urea nitrogen 16 mg/dL 7-18 Blood Urea Nitro gen [facility] ([facility]) creatinine for GFR 0.95 mg/dL 0.55-1.30 Creatinine for GF R [facility] ([facility]) glucose, fasting 92 mg/dL 70-100 Glucose, Fasting AT [place] ([facility]) glomerular filtration rate > 60.0 >58 Glomerula r Filtration Rate [facility] ([facility]) potassium serum 4.1 mEq/L 3.5-5.1 Potassium Serum [facility] NA ([facility]) sodium level 140 mEq/L 136-145 Sodium Level [facility] ([facility]) chloride level 106 mEq/L 98-107 Chloride Level [facility] ([facility]) carbon dioxide level 27 mEq/L 21-32 Carbon Dioxide Level [facility] ([facility]) calcium level 9.3 mg/dL 8.5-10.1 Calcium Level [facility] ( [facility]) AST/SGOT 30 U/L 7-37 AST/SGOT [facility] ([facility]) anion gap 7 mEq/L 8-16 Below low normal Anion Gap [facility] ( [facility]) ALT/SGPT 37 U/L 12-78 ALT/SGPT [facility] ([facility]) alkaline phosphatase 171 U/L 45-117 Above high normal Alkaline Phosphatase [facility] ([facility]) bilirubin,total 0.3 mg/dL 0.2-1.0 Bilirubin,total [facility] NA ([facility]) total protein 7.6 gm/dL 6.4-8.2 Total Protein [facility] ( [facility]) albumin/globulin ratio 1.2-2.2 Below low normal Albumin /globulin Ratio [facility] ([facility]) albumin 3.7 gm/dL 3.2-5.2 Albumin [place] ([facility]) ID Date Data Source [id number] 01/14/2021 08:19:00 AM EDT [place] ([facility]) Name Value Range Interpretation Code Description Data Amanda rce(s) Supporting Document(s) appearance, urine hazy clear Appearance, Urine [place] ([facility]) color, urine yellow yellow Color, Urine [facility] (No Counts include 234 beds at the [facility]) pH,urine 6.0 units 5.0-9.0 pH,urine [facility] ([facility]) specific gravity urine auto 1.002-1.035 Specifi c [place] Urine Auto [place] ([facility]) glucose, urine (UA) auto negative negative Glucose, Ur ine (UA) Auto [place] ([facility]) ketone, urine auto negative negative Ketone, Urine Aut o [place] ([facility]) urobilinogen, urine auto 0.2 mg/dL 0.0-2.0 Urobilinoge n, Urine Auto [facility] ([facility]) protein, urine auto negative negative Protein, Urine A uto [facility] ([facility]) bilirubin, urine auto negative negative Bilirubin, Uri ne Auto [facility] ([facility]) leukocyte esterase, urine auto negative negative Leukocyte Esterase, Urine Auto [facility] ([facility]) nitrite, urine auto negative negative Nitrite, Urine A uto [facility] ([facility]) bacteria, urine auto negative negative Bacteria, Urine Auto [facility] ([facility]) RBC, urine auto 0 /hpf 0-3 RBC, Urine Auto [facility] NA ([facility]) WBC, urine auto 1 /hpf 0-3 WBC, Urine Auto [facility] NA ([facility]) blood, urine blood negative negative Blood, Urine Bloo d [facility] ([facility]) hyaline cast, urine auto 0 /lpf 0-1 Hyaline Wolf t, Urine Auto [facility] ([facility]) squamous epithelial cell ur AU 6 /hpf 0-6 Squam ous Epithelial Cell Ur AU [place] ([facility]) ID Date Data Source [id number] 01/14/2021 08:19:00 AM EDT [place] ([facility]) Name Value Range Interpretation Code Description Data Amanda rce(s) Supporting Document(s) white blood count 8.7 10 4.0-10.0 White Blood Count [facility] ([facility]) hemoglobin 12.3 g/dL 12.0-15.5 Hemoglobin [facility] ([facility]) red blood count 4.26 10 4.00-5.40 Red Blood Count [facility] ([facility]) mean corpuscular hemoglobin 28.9 pg 27.0-33.0 Mean Cor puscular Hemoglobin [facility] ([facility]) mean corpuscular volume 91.1 fL 80.0-96.0 Mean Corpusc ular Volume [facility] ([facility]) hematocrit 38.8 % 36.0-47.0 Hematocrit [facility] ([facility]) red cell distribution width 14.6 % 11.5-14.5 Above high no rmal Red Cell Distribution Width [facility] ([facility]) platelet count, automated 237 10 150-450 Platelet C ount, Automated [place] ([facility]) mean corpuscular HGB conc 31.7 g/dL 32.0-36.5 Below low kellie l Mean Corpuscular HGB Conc [place] ([facility]) lymph % 23.0 % 24.0-44.0 Below low normal Lymph % [place] ( [facility]) neutrophils % 65.8 % 36.0-66.0 Neutrophils % [place] ( [facility]) mono % 7.8 % 2.0-8.0 [place] % [place] ([facility]) eos % 0.9 % 0.0-3.0 Eos % [place] ([facility]) nucleated red blood cell % 0.0 % 0-0 Nucleated Red Blood Cell % [place] ([facility]) baso % 1.5 % 0.0-1.0 Above high normal Baso % [place] ([facility]) immature granulocyte % 1.0 % 0-3.0 Immature Gran ulocyte % [place] ([facility]) mono # 0.7 10 0.0-0.8 [place] # [place] ([facility]) neutrophils # 5.8 10 1.5-8.5 Neutrophils # [place] ( [facility]) lymph # 2.0 10 1.5-5.0 Lymph # [place] ([facility]) eos # 0.1 10 0.0-0.5 Eos # [place] ([facility]) baso # 0.1 10 0.0-0.2 Baso # [place] ([facility]) ID Date Data Source [id number] 06/30/2020 09:49:51 AM EDT [facility] Measurements & CalculationsHeight: 67 inches (5 ft. 7 in.) 170.18 cm Weight: 261 pounds 118.64 kg Body Mass Index (BMI): 41.03BMI Interpretation: Morbidly ObeseBody Surface Area (BSA): 2.27Weight Management Education Done (Nutrition/Physical Activity)Vital SignsTemperature: 98.3FPulse Rate: 67 beats/minuteRespiratory Rate: 16 respirations/minuteBlood Pressure: 124/86 O2 Saturation: 97% Vital Signs performed by: Rachna Chappell MA, June 30, 2020 10:02 AMVital Signs performed by: Rachna Chappell MA, June 30, 2020 10:02 AMInitial Intake Information From: patientRoom #: 11Infectious Disease / Travel ScreeningRecent travel for you or any close contacts? NoHave you had any close contact with anyone diagnosed with or under investigation for COVID-19 (coronavirus)? NoFever? NoRespiratory symptoms: cough, cold, congestion, shortness of breath, difficulty breathing? NoLoss of smell? NoLoss of taste? NoSmoking, Tobacco, Vaping or Smoke Exposure StatusSmoke Status: former smokerTobacco Use: NoDo you vape? NoPassive Smoke Exposure: NoMenstrual HistoryLast Menstrual Period (LMP): 06/24/2020LMP History: ApproximateAny possibility of ? NoHealthcare HistorySince your last office visit...Have you been admitted to the hospital? No - [facility] 01/07/2018- 01/10/2018Have you been to an emergency room (ER) or urgent care clinic? No - [facility]- Neck, back Emergency room (ER) or urgent care date reported today: 02/05/2019Have you seen another healthcare provider? Yes - went to eye doctor - [place] [place] Have you seen a dentist? No - aquaDental exam date reported today: 01/2015Intake performed by: Rachna Chappell MA, June 30, 2020 9:53 AMRate Your HealthIn general, would you say your health is? Very GoodPain AssessmentAre you currently having any pain which... You would like your provider to address? Yes Affects your activity level? NoDepression Screening - PHQ-2Over the last two weeks, have you... Had little interest or pleasure in doing things? Not at all Been feeling down, depressed, or hopeless? Not at all PHQ-2 Score: 0Anxiety Screening - WILDER-2Over the last two weeks, have you been... Feeling nervous, anxious, or on edge? Not at all Unable to stop or control worrying? Not at all WILDER-2 Score: 0Food InsecurityWithin the past year...Did you worry whether your food would run out before you got money to buy more? Never trueWas there a time when the food you bought didn't last and you didn't have money to get more? Never truePain AssessmentPain ScaleNumeric Rating Scale: 2 / 10Location: left sideDuration: 2 weeksFrequency: DailyCharacter/Quality: aching, sharp, pressure and pinchingIs the pain radiating? NoPRAPARE Sociodemographic Characteristics Race: White Ethnicity: Not or Preferred Language: EnglishFamily and Home Address: [address] [place] [address] What is your housing situation today? I have housing Are you worried about losing your housing? NoMoney and Resources In the past year, have you or any family members you live with been unable to get any of the following when it was really needed? Denies Insecurity: food, utilities, clothing, attendant child activity, phone, legal servicesWithin the past year did you worry whether your food would run out before you got money to buy more? Never trueWithin the past year was there a time when the food you bought didn't last and you didn't have money to get more? Never trueIn the past year, have you had trouble affording costs associated with health insurance (such as deductibles, co-payments, etc.)? NoSocial and Emotional Health How often do you see or talk to people that you care about and feel close to? More than 5 times a week How stressed are you? A little bitAdditional Optional Domains Do you feel physically and emotionally safe where you live? Yes In the past year, have you been afraid of a partner, ex-partner? NoScreening, Brief Intervention, & Referral to Treatment (SBIRT)Pre-Screening Questions How many times have you have 4 or more drinks in a day? 0How many times have you used an illegal drug or used a prescription medication for a non-medical reason? 0Performed by: Rachna Chappell MA, June 30, 2020 9:57 AMPatient History Medical History:DepressionHypothyroidismYared Grimes PainCAD- following with Dr. Julian LAD stenosis requiring stent placement- [facility] 04/2015[facility]- ntiplatelet therapy initiated- 04/2015High Cholesterolheart attack 01/07/2018Heart Disease, Heart Trouble, Heart Attack,HBP,Thyroid Problems, No Allergies, 2heart attacks and stents placed in past 5yrs.Levothyroxine, Gabapentin, Meloxacan,Atorvastatin,Sertraline. (from dental med hx form 05/07/19)Surgical History:right shoulder 2009TubalC-sections 1992, 1989teeth pulledFamily History:Mom- Lymphatic CASocial/Personal History:Passive smoke exposure - yesAlcohol Use - noDrug Use - noHIV/High Risk - noRegular Exercise - noSmoking History:Patient currently smokes every day.Marital Status- Chief Complaintannual exam room 11History of Present Illness (HPI)49 YO female here for annual exam. Pt states concerns with abdominal bloating and left side pain. Pt states bloating ongoing for about 6 months, Pt states also pain and pressure left upper quadrant started three weeks ago. Pt denies nausea. Pt denies vomiting. Pt denies diarrhea. Pt denies smoking. Pt denies alcoholism. Pt denies illicit drug use. Pt refused flu vaccine today. HPI performed by: Ree ALICIA, June 30, 2020 10:48 AMTransitions of Care InboundProblem ReviewProblem List was reviewed and/or updated during this visit.Medication Reconciliation & ReviewMedication List was reviewed and/or updated during this visit, including review of any [id number] medications, herbal therapies, and/or supplements.Allergy ReviewAllergy List was reviewed and/or updated during this visit.Adult Preventive CareProvider Calculated and Reviewed all Clinical Protocols for patient today. Labs/Meds/Other Counseling-Nutrition and Physical Activity:BMI Interpretation: Morbidly Obese (06/30/2020) Counseling: Done (06/30/2020) Physical Activity: Done (06/30/2020)Review of Systems General: Denies loss of appetite, chills, dizziness, fatigue, fever, continued fever, headache, feeling ill, sweats, night sweats, sleep disturbances, weight loss. Eyes: Denies blurring of vision, double vision, irritation, discharge, vision loss, eye pain, eye swelling, droopy eyelid, sensitivity to light, redness, itching. Ears/Nose/Throat: Denies earache, ear discharge, ringing in ears, decreased hearing, nasal congestion, nosebleeds, runny nose, sore throat, hoarseness, difficulty swallowing, dry mouth, tooth pain, bleeding gums, swollen glands. Cardiovascular: Denies chest pain, palpitations, feeling faint, trouble breathing w/exertion, SOB upon lying down, SOB at night, peripheral edema, elevated blood pressure, decreased heart rate. Respiratory: Denies cough, difficulty breathing, shortness of breath, excessive sputum, coughing up blood, wheezing, chest pain. Breast: Denies discoloration, tenderness, breast changes, breast lump, nipple discharge. Gastrointestinal: Complains of nausea, cramps, constipation, abdominal pain, blood in stool, heartburn. Denies black or tarry stools. Genitourinary: Denies urinary incontinence, pain with urination, burning with urination, urinary frequency, urinary hesitancy, urinary urgency, urinary urgency at night, incomplete emptying, blood in urine. Musculoskeletal: Denies back pain, joint pain, leg pain, other pain-see comments, joint swelling, body aches, muscle aches, muscle cramps, muscle weakness, stiffness, recent injury. Skin: Denies rash, hives, redness, itching, dryness, nail c hanges, suspicious lesions, athlete's foot, rash on palms, rash on bottom of feet. Neurologic: Denies muscle impairment, weakness, numbness/tingling, seizures, slurred speech, feeling faint, tremors, vertigo, paralysis on one side, paralysis on both sides. Psychiatric: Denies depression, anxiety, memory loss, mental disturbance, suicidal ideation, homicidal ideation, hallucinations, paranoia, feeling stressed, hearing voices. Endocrine: Denies cold intolerance, heat intolerance, excessive thirst, excessive hunger, excessive urination, weight loss, weight gain. Heme/Lymphatic: Denies abnormal bruising, bleeding, enlarged lymph nodes. Physical ExamGeneral Appearance: well nourished, well hydrated, no acute distressEyes, External: conjunctivae and lids normal, EOMIRespiratory, Auscultation: clear to auscultation bilaterally; no rales, rhonchi, or wheezesRespiratory, Effort: no intercostal retractions or use of accessory musclesCardiovascular, Auscultation: S1, S2 audible; no murmur, rub, or gallop; RRRPeripheral Circulation: no clubbing, cyanosis, edema, or varicositiesAbdomen: soft, non-tender, no masses, bowel sounds normalGait & Station: normalSkin, Inspection: no rashes, lesions, or ulcerationsOrientation: oriented to time, place, and personMood & Affect: no depression, anxiety, or agitationJudgment & Insight: intactCare Management Plan Transitions of CareInboundRate Your HealthIn general, would you say your health is? Very GoodAssessment & Plan Problems:Added: Gastro-esophageal reflux disease without esophagitis (ICD-530.81) (BOI84-Q27.9) Assessment: Instructions: Please try to limit intake of spicy acidic food and daily. Please try to limit your caffeine intake. Please try to maintain adequate intake of water dailyLeft upper quadrant pain (ICD-789.02) (XCK43-D54.12) Assessment: Instructions: CT scan ordered today. We will contact you to set this upAbdominal bloating (ICD- 787.3) (KDY48-V79.0) Assessment: Instructions: CT scan ordered today. We wi ll contact you to set this up. Please try to limit intake of spicy acidic food and daily. Please try to limit your caffeine intake. Please try to maintain adequate intake of water dailyAssessed:Encounter for general adult medical examination with abnormal findings (ICD-V70.0) (MVJ22-O83.01) Assessment: Instructions: You have had your Annual physical exam done today. Please continue medications as prescribed. Please continue healthy diet and physical activities. Please try to maintain adequate intake of water daily.Hypothyroidism (ICD-244.9) (PBD33-G00.9) Assessment: Instructions: Thyroid levels within normal limits. Please continue medications as prescribed.Obesity, unspecified (ICD-278.00) (HSH82-T61.9) Assessment: Instructions: Please continue healthy diet and physical activities. Please try to limit sugars, carbohydrates, sodium and fats in your diet.Assessment not Saved Left upper quadrant pain ([id number]): Patient Instructions/Care Plan: Gastro-esophageal reflux disease without esophagitis: Please try to limit intake of spicy acidic food and daily. Please try to limit your caffeine intake. Please try to maintain adequate intake of water dailyEncounter for general adult medical examination with abnormal findings: You have had your Annual physical exam done today. Please continue medications as prescribed. Please continue healthy diet and physical activities. Please try to maintain adequate intake of water daily.Hypothyroidism: Thyroid levels within normal limits. Please continue medications as prescribed.Obesity- unspecified: Please continue healthy diet and physical activities. Please try to limit sugars, carbohydrates, sodium and fats in your diet.Left upper quadrant pain: CT scan ordered today. We will contact you to set this upAbdominal bloating: CT scan ordered today. We will contact you to set this up. Please try to limit intake of spicy acidic food and daily. Please try to limit your caffeine intake. Please try to maintain adequate intake of water daily Plan developed in collaboration with patient and/or familyMedications:OMEPRAZOLE 20 MG ORAL CAPSULE DELAYED RELEASELEVOTHYROXINE SODIUM 150 MCG ORAL TABLETLISINOPRIL TABLETGABAPENTIN 600 MG ORAL TABLETPLAVIX TABLETBLOOD PRESSURE MONITOR AUTOMAT DEVICEZOLOFT 50 MG ORAL TABLETATORVASTATIN CALCIUM 40 MG ORAL TABLETNITROSTAT 0.4 MG SUBLINGUAL TABLET SUBLINGUALMETOPROLOL TARTRATE 25 MG ORAL TABLETASPIR-LOW 81 MG ORAL TABLET DELAYED RELEASEMedication Changes:New Prescription:OMEPRAZOLE 20 MG ORAL CAPSULE DELAYED RELEASE-take one tablet by mouth daily in the AM before breakfast. Qty: 30[Capsule] Refills: 2 Method: ElectronicAllergies:No Known Allergies (updated 10/02/2019) Orders:CT ABDOMEN W/O &W/CONTRAST MATERIAL [CPT-80318] COMP METABOLIC PANEL [CPT-97773] CBC W/DIFF [CPT-22554] HgBA1c [CPT-70009] LIPID PANEL [CPT-90554] TSH [CPT- 63813] T-4 free [CPT-95674] Vitamin D 250H Unspecified [CPT-76692] URINALYSIS [CPT-66873] Urine Culture [CPT-87430] Adult - Ofc Vst, EST, Level IV [CPT-42801] Follow-Up Return to clinic: 6-8 weeks for follow up. Clinical Visit Summary CompletedMedications:OMEPRAZOLE 20 MG ORAL CAPSULE DELAYED RELEASE (OMEPRAZOLE) take one tablet by mouth daily in the AM before breakfast. #30[Capsule] x 2 Route:ORAL Entered and Authorized by: Ree ALICIA Method used: Electronically to [facility] (retail) [facility] [place] [address] Note to Pharmacy: Route: ORAL; Indications: ABDOMINAL BLOATING;GASTRO-ESOPHAGEAL REFLUX DISEASE WITHOUT ESOPHAGITIS RxID: [id number] signed by Ree ALICIA on 07/06/2020 at 2:54 AM Name Value Range Interpretation Code Description Data Amanda rce(s) Supporting Document(s) ID Date Data Source [id number] 06/23/2020 12:36:00 PM EDT [facility] ([facility]) Name Value Range Interpretation Code Description Data Amanda rce(s) Supporting Document(s) Thyroid Stimulating Hormone 0.500 ME DENT ([facility]) Free T4 1.13 [facility] ([facility]) ID Date Data Source [id number] 06/23/2020 10:17:27 AM EDT [facility] In-House Blood TestsDate/Time Colle cted: June 23, 2020 8:44 AMTest Result Reference Range Normal ValueComments: Labs drawn in office. Taken from left hand. Tolerated well Elaine Romo MA, June 23, 2020 10:18 AMAssessment & Plan Orders:[id number]-Hid Vst-Est Level I [CPT-49326] 74393 - Venipuncture [CPT-53499] Name Value Range Interpretation Code Description Data Amanda rce(s) Supporting Document(s) ID Date Data Source [id number] 06/23/2020 08:44:00 AM EDT [facility] Name Value Range Interpretation Code Description Data Amanda rce(s) Supporting Document(s) T4, FREE 1.13 ng/dL 0.76-1.46 [facility] TSH 0.500 microintl units/mL 0.358-3.740 [facility] Procedure Social History Code Duration Value Status Description Data Source(s ) Smoking 06/16/2021 12:00:00 AM EDT Former Smoker completed Former Smoker eCW1 ([facility]) Smoking 06/30/2020 12:00:00 AM EDT Patient is a former smoker completed Patient is a former smoker SAMMY ([facility]) Vital Signs ID Date Data Source UNK Name Value Range Interpretation Code Description Data Source(s) Body height 67 [in_i] 67 [in_i] [facility] ([facility]) Body weight 256.8 [lb_av] 256.8 [lb_av] eCW1 ([facility]) Body weight 116.48 kg 116.48 kg [facility] ([facility]) Body height 67 [in_i] 67 [in_i] eCW1 ([facility]) Body mass index (BMI) [Ratio] 40.22 kg/m2 40.22 kg/m2 W1 ([facility]) Systolic blood pressure 118 mm[Hg] 118 mm[Hg] e CW1 ([facility]) Diastolic blood pressure 76 mm[Hg] 76 mm[Hg] eCW1 ([facility]) Diastolic blood pressure 88 mm[Hg] 88 mm[Hg] [place] ([facility]) Body height 67 [in_i] 67 [in_i] [facility] ([facility]) Body mass index (BMI) [Ratio] 41.3 kg/m2 41.3 k g/m2 [place] ([facility]) Systolic blood pressure 131 mm[Hg] 131 mm[Hg] A [facility] ([facility]) Body weight 4224 [oz_av] 4224 [oz_av] [facility] ([facility]) Systolic blood pressure 131 mm[Hg] 131 mm[Hg] A THENA ([facility]) Body weight 4224 [oz_av] 4224 [oz_av] [facility] ([facility]) Diastolic blood pressure 88 mm[Hg] 88 mm[Hg] [facility] ([facility]) Body height 67 [in_i] 67 [in_i] [facility] ([facility]) Body mass index (BMI) [Ratio] 41.3 kg/m2 41.3 k g/m2 [facility] ([facility]) Body height 67 [in_i] 67 [in_i] [facility] ([facility], ) 5'7" Body weight 270.00 [lb_av] 270.00 [lb_av] MEDEN T ([facility], ) Body mass index (BMI) [Ratio] 42.3 kg/m2 42.3 k g/m2 [facility] ([facility], ) [place] body weight 135 [lb_av] 135 [lb_av] MEDEN T ([facility], ) Body weight 122.472 kg 122.472 kg [facility] ([facility], ) Body surface area Derived from formula 2.30 m2 2.30 m2 [facility] ([facility], ) Systolic blood pressure 134 mm[Hg] 134 mm[Hg] M EDENT ([facility], ) Diastolic blood pressure 77 mm[Hg] 77 mm[Hg] [facility] ([facility], ) Body weight 270.00 [lb_av] 270.00 [lb_av] MEDEN T ([facility], ) Body height 67 [in_i] 67 [in_i] [facility] ([facility], ) 5'7" Body mass index (BMI) [Ratio] 42.3 kg/m2 42.3 k g/m2 [facility] ([facility], ) [place] body weight 135 [lb_av] 135 [lb_av] MEDEN T ([facility], ) Body weight 122.472 kg 122.472 kg SAMMY ([facility], ) Body surface area Derived from formula 2.30 m2 2.30 m2 SAM[facility] ([facility], ) Diastolic blood pressure 85 mm[Hg] 85 mm[Hg] [facility] ([facility]) Body height 67 [in_i] 67 [in_i] [facility] ([facility]) Body mass index (BMI) [Ratio] 43.1 kg/m2 43.1 k g/m2 [facility] ([facility]) Systolic blood pressure 140 mm[Hg] 140 mm[Hg] A [facility] ([facility]) Body weight 4400 [oz_av] 4400 [oz_av] [facility] ([facility]) Diastolic blood pressure 85 mm[Hg] 85 mm[Hg] [facility] ([facility]) Body height 67 [in_i] 67 [in_i] [facility] ([facility]) Body mass index (BMI) [Ratio] 43.1 kg/m2 43.1 k g/m2 [facility] ([facility]) Systolic blood pressure 140 mm[Hg] 140 mm[Hg] [facility] Body weight 4400 [oz_av] 4400 [oz_av] [facility] ([facility]) Diastolic blood pressure 85 mm[Hg] 85 mm[Hg] [facility] ([facility]) Body height 67 [in_i] 67 [in_i] [facility] ([facility]) Body mass index (BMI) [Ratio] 43.1 kg/m2 43.1 k g/m2 [facility] ([facility]) Systolic blood pressure 140 mm[Hg] 140 mm[Hg] [facility] Body weight 4400 [oz_av] 4400 [oz_av] [facility] ([facility]) Diastolic blood pressure 87 mm[Hg] 87 mm[Hg] [facility] ([facility]) Body height 67 [in_i] 67 [in_i] [facility] ([facility]) Body mass index (BMI) [Ratio] 43.1 kg/m2 43.1 k g/m2 [facility] ([facility]) Systolic blood pressure 136 mm[Hg] 136 mm[Hg] A [facility] ([facility]) Body weight 4406 [oz_av] 4406 [oz_av] [facility] ([facility]) Diastolic blood pressure 87 mm[Hg] 87 mm[Hg] [facility] ([facility]) Body height 67 [in_i] 67 [in_i] [facility] ([facility]) Body mass index (BMI) [Ratio] 43.1 kg/m2 43.1 k g/m2 [facility] ([facility]) Systolic blood pressure 136 mm[Hg] 136 mm[Hg] A [facility] ([facility]) Body weight 4406 [oz_av] 4406 [oz_av] [facility] ([facility]) Diastolic blood pressure 87 mm[Hg] 87 mm[Hg] [facility] ([facility]) Body height 67 [in_i] 67 [in_i] [facility] ([facility]) Body mass index (BMI) [Ratio] 43.1 kg/m2 43.1 k g/m2 [facility] ([facility]) Systolic blood pressure 136 mm[Hg] 136 mm[Hg] A [facility] ([facility]) Body weight 4406 [oz_av] 4406 [oz_av] [facility] ([facility]) Diastolic blood pressure 87 mm[Hg] 87 mm[Hg] [facility] ([facility]) Body height 67 [in_i] 67 [in_i] [facility] ([facility]) Body mass index (BMI) [Ratio] 43.1 kg/m2 43.1 k g/m2 [facility] ([facility]) Systolic blood pressure 136 mm[Hg] 136 mm[Hg] A THE[facility] ([facility]) Body weight 4406 [oz_av] 4406 [oz_av] [facility] ([facility]) Body height 67 [in_i] 67 [in_i] [facility] ([facility]) Body height 67 [in_i] 67 [in_i] [facility] ([facility]) Body height 67 [in_i] 67 [in_i] [facility] ([facility]) Body height 67 [in_i] 67 [in_i] [facility] ([facility]) Body height 67 [in_i] 67 [in_i] [facility] ([facility]) Diastolic blood pressure 90 mm[Hg] 90 mm[Hg] [facility] ([facility]) Body height 67 [in_i] 67 [in_i] [facility] ([facility]) Body mass index (BMI) [Ratio] 44.6 kg/m2 44.6 k g/m2 [facility] ([facility]) Systolic blood pressure 122 mm[Hg] 122 mm[Hg] [facility] Body weight 4560 [oz_av] 4560 [oz_av] [facility] ([facility]) Diastolic blood pressure 90 mm[Hg] 90 mm[Hg] [facility] ([facility]) Body height 67 [in_i] 67 [in_i] [facility] ([facility]) Body mass index (BMI) [Ratio] 44.6 kg/m2 44.6 k g/m2 [facility] ([facility]) Systolic blood pressure 122 mm[Hg] 122 mm[Hg] A [facility] ([facility]) Body weight 4560 [oz_av] 4560 [oz_av] [facility] ([facility]) Diastolic blood pressure 90 mm[Hg] 90 mm[Hg] [facility] ([facility]) Body height 67 [in_i] 67 [in_i] [facility] ([facility]) Body mass index (BMI) [Ratio] 44.6 kg/m2 44.6 k g/m2 [facility] ([facility]) Systolic blood pressure 122 mm[Hg] 122 mm[Hg] A THENA ([facility]) Body weight 4560 [oz_av] 4560 [oz_av] [facility] ([facility]) Diastolic blood pressure 90 mm[Hg] 90 mm[Hg] [facility] ([facility]) Body height 67 [in_i] 67 [in_i] [facility] ([facility]) Body mass index (BMI) [Ratio] 44.6 kg/m2 44.6 k g/m2 [facility] ([facility]) Systolic blood pressure 122 mm[Hg] 122 mm[Hg] [facility] Body weight 4560 [oz_av] 4560 [oz_av] [facility] ([facility]) Diastolic blood pressure 90 mm[Hg] 90 mm[Hg] [facility] ([facility]) Body height 67 [in_i] 67 [in_i] [facility] ([facility]) Body mass index (BMI) [Ratio] 44.6 kg/m2 44.6 k g/m2 [facility] ([facility]) Systolic blood pressure 122 mm[Hg] 122 mm[Hg] A [place] ([facility]) Body weight 4560 [oz_av] 4560 [oz_av] [facility] ([facility]) Diastolic blood pressure 90 mm[Hg] 90 mm[Hg] [facility] ([facility]) Body height 67 [in_i] 67 [in_i] [facility] ([facility]) Body mass index (BMI) [Ratio] 44.6 kg/m2 44.6 k g/m2 [facility] ([facility]) Systolic blood pressure 122 mm[Hg] 122 mm[Hg] A [facility] ([facility]) Body weight 4560 [oz_av] 4560 [oz_av] [facility] ([facility]) Body weight 261.00 [lb_av] 261.00 [lb_av] SANDRAEN T ([facility]) Body height 67 [in_i] 67 [in_i] [facility] ([facility]) 5'7" Body mass index (BMI) [Ratio] 40.9 kg/m2 40.9 k g/m2 [facility] ([facility]) Heart rate 60 /min 60 /min [facility] ([facility]) Regular Respiratory rate 16 /min 16 /min [facility] ( [facility]) Systolic blood pressure 138 mm[Hg] 138 mm[Hg] M EDENT ([facility]) sitting, large cuff Diastolic blood pressure 76 mm[Hg] 76 mm[Hg] [facility] ([facility]) sitting, large cuff Systolic blood pressure 136 mm[Hg] 136 mm[Hg] M EDENT ([facility]) sitting Diastolic blood pressure 76 mm[Hg] 76 mm[Hg] [facility] ([facility]) sitting Diastolic blood pressure 86 mm[Hg] 86 mm[Hg] [facility] ([facility]) Body height 67 [in_i] 67 [in_i] [facility] ([facility]) Body mass index (BMI) [Ratio] 41.03 kg/m2 41.03 kg/m2 [facility] ([facility]) Systolic blood pressure 124 mm[Hg] 124 mm[Hg] [facility] ([facility]) Body weight 4176 [oz_av] 4176 [oz_av] [facility] ([facility]) Diastolic blood pressure 86 mm[Hg] 86 mm[Hg] [facility] ([facility]) Body height 67 [in_i] 67 [in_i] [facility] ([facility]) Body mass index (BMI) [Ratio] 41.03 kg/m2 41.03 kg/m2 [facility] ([facility]) Systolic blood pressure 124 mm[Hg] 124 mm[Hg] [facility]) Body weight 4176 [oz_av] 4176 [oz_av] [facility] ([facility]) Diastolic blood pressure 86 mm[Hg] 86 mm[Hg] [facility] ([facility]) Body height 67 [in_i] 67 [in_i] [facility] ([facility]) Body mass index (BMI) [Ratio] 41.03 kg/m2 41.03 kg/m2 [facility] ([facility]) Systolic blood pressure 124 mm[Hg] 124 mm[Hg] [facility] Body weight 4176 [oz_av] 4176 [oz_av] [facility] ([facility]) Diastolic blood pressure 86 mm[Hg] 86 mm[Hg] [facility] ([facility]) Body height 67 [in_i] 67 [in_i] [facility] ([facility]) Body mass index (BMI) [Ratio] 41.03 kg/m2 41.03 kg/m2 [facility] ([facility]) Systolic blood pressure 124 mm[Hg] 124 mm[Hg] [facility]) Body weight 4176 [oz_av] 4176 [oz_av] [facility] ([facility]) Diastolic blood pressure 86 mm[Hg] 86 mm[Hg] [facility] ([facility]) Body height 67 [in_i] 67 [in_i] [facility] ([facility]) Body mass index (BMI) [Ratio] 41.03 kg/m2 41.03 kg/m2 [facility] ([facility]) Systolic blood pressure 124 mm[Hg] 124 mm[Hg] A THE[facility] ([facility]) Body weight 4176 [oz_av] 4176 [oz_av] [facility] ([facility]) Diastolic blood pressure 86 mm[Hg] 86 mm[Hg] [facility] ([facility]) Body height 67 [in_i] 67 [in_i] [facility] ([facility]) Body mass index (BMI) [Ratio] 41.03 kg/m2 41.03 kg/m2 [facility] ([facility]) Systolic blood pressure 124 mm[Hg] 124 mm[Hg] A THENA ([facility]) Body weight 4176 [oz_av] 4176 [oz_av] [facility] ([facility]) Patient Treatment Plan of Care Planned Activity Planned Date Details Description Data Source (s) 24 HR metoprolol succinate 25 MG Extended Release Oral Tablet 01/07/2021 12:00:00 AM EDT [place] ([facility]) 24 HR metoprolol succinate 25 MG Extended Release Oral Tablet 01/07/2021 12:00:00 AM EDT [facility] ([facility]) 24 HR metoprolol succinate 25 MG Extended Release Oral Tablet 01/07/2021 12:00:00 AM EDT [facility] ([facility]) 24 HR metoprolol succinate 25 MG Extended Release Oral Tablet 01/07/2021 12:00:00 AM EDT [facility] ([facility]) 24 HR metoprolol succinate 25 MG Extended Release Oral Tablet 01/07/2021 12:00:00 AM EDT [facility] ([facility]) 24 HR metoprolol succinate 25 MG Extended Release Oral Tablet 01/07/2021 12:00:00 AM EDT [facility] ([facility]) Sucralfate 1000 MG Oral Tablet [facility] ([facility]) Sertraline 50 MG Oral Tablet [facility] ([facility]) Acetaminophen 325 MG / Oxycodone Hydrochloride 5 MG Oral Tablet [facility] ([facility]) Omeprazole 20 MG Delayed Release Oral Capsule [facility] ([facility]) Nitroglycerin 0.4 MG Sublingual Tablet [facility] ([facility]) Lisinopril 20 MG Oral Tablet [facility] ([facility]) Levothyroxine Sodium 0.2 MG Oral Tablet [facility] ([facility]) Levothyroxine Sodium 0.175 MG Oral Tablet [facility] ([facility]) Acetaminophen 325 MG / Hydrocodone Bitartrate 5 MG Oral Tablet [facility] ([facility]) Fluconazole 150 MG Oral Tablet [facility] ([facility]) clopidogrel 75 MG Oral Tablet [facility] ([facility]) Clindamycin 300 MG Oral Capsule [facility] ([facility]) chlorhexidine gluconate 1.2 MG/ML Mouthwash [facility] ([facility]) atorvastatin 80 MG Oral Tablet [facility] ([facility]) Amoxicillin 500 MG Oral Capsule [facility] ([facility]) Sucralfate 1000 MG Oral Tablet [facility] ([facility]) Sertraline 50 MG Oral Tablet [facility] ([facility]) Acetaminophen 325 MG / Oxycodone Hydrochloride 5 MG Oral Tablet [facility] ([facility]) Omeprazole 20 MG Delayed Release Oral Capsule [facility] ([facility]) Nitroglycerin 0.4 MG Sublingual Tablet [facility] ([facility]) Lisinopril 20 MG Oral Tablet [facility] ([facility]) Levothyroxine Sodium 0.2 MG Oral Tablet [facility] ([facility]) Levothyroxine Sodium 0.175 MG Oral Tablet [facility] ([facility]) Acetaminophen 325 MG / Hydrocodone Bitartrate 5 MG Oral Tablet [facility] ([facility]) Fluconazole 150 MG Oral Tablet [facility] ([facility]) clopidogrel 75 MG Oral Tablet [facility] ([facility]) Clindamycin 300 MG Oral Capsule [facility] ([facility]) chlorhexidine gluconate 1.2 MG/ML Mouthwash [facility] ([facility]) atorvastatin 80 MG Oral Tablet [facility] ([facility]) Amoxicillin 500 MG Oral Capsule [facility] ([facility]) Sucralfate 1000 MG Oral Tablet [facility] ([facility]) Sertraline 50 MG Oral Tablet [facility] ([facility]) Acetaminophen 325 MG / Oxycodone Hydrochloride 5 MG Oral Tablet [facility] ([facility]) Omeprazole 20 MG Delayed Release Oral Capsule [facility] ([facility]) Nitroglycerin 0.4 MG Sublingual Tablet [facility] ([facility]) Lisinopril 20 MG Oral Tablet [facility] ([facility]) Levothyroxine Sodium 0.2 MG Oral Tablet [facility] ([facility]) Levothyroxine Sodium 0.175 MG Oral Tablet [facility] ([facility]) Acetaminophen 325 MG / Hydrocodone Bitartrate 5 MG Oral Tablet [facility] ([facility]) clopidogrel 75 MG Oral Tablet [facility] ([facility]) Clindamycin 300 MG Oral Capsule [facility] ([facility]) chlorhexidine gluconate 1.2 MG/ML Mouthwash [facility] ([facility]) atorvastatin 80 MG Oral Tablet [facility] ([facility]) Amoxicillin 500 MG Oral Capsule [facility] ([facility]) Sucralfate 1000 MG Oral Tablet [facility] ([facility]) Sertraline 50 MG Oral Tablet [facility] ([facility] Acetaminophen 325 MG / Oxycodone Hydrochloride 5 MG Oral Tablet [facility] ([facility]) Acetaminophen 325 MG / Hydrocodone Bitartrate 5 MG Oral Tablet [facility] ([facility]) clopidogrel 75 MG Oral Tablet [facility] ([facility]) Clindamycin 300 MG Oral Capsule [facility] ([facility]) chlorhexidine gluconate 1.2 MG/ML Mouthwash [facility] ([facility]) atorvastatin 80 MG Oral Tablet [facility] ([facility]) Amoxicillin 500 MG Oral Capsule [facility] ([facility]) Acetaminophen 325 MG / Oxycodone Hydrochloride 5 MG Oral Tablet [facility] ([facility]) Omeprazole 20 MG Delayed Release Oral Capsule [facility] ([facility]) Nitroglycerin 0.4 MG Sublingual Tablet [facility] ([facility]) Lisinopril 20 MG Oral Tablet [facility] ([facility]) Levothyroxine Sodium 0.2 MG Oral Tablet [facility] ([facility]) Levothyroxine Sodium 0.175 MG Oral Tablet [facility] ([facility]) Acetaminophen 325 MG / Hydrocodone Bitartrate 5 MG Oral Tablet [facility] ([facility]) clopidogrel 75 MG Oral Tablet [facility] ([facility]) Clindamycin 300 MG Oral Capsule [facility] ([facility]) chlorhexidine gluconate 1.2 MG/ML Mouthwash [facility] ([facility]) atorvastatin 80 MG Oral Tablet [facility] ([facility]) Amoxicillin 500 MG Oral Capsule [facility] ([facility]) Acetaminophen 325 MG / Oxycodone Hydrochloride 5 MG Oral Tablet [facility] ([facility]) Omeprazole 20 MG Delayed Release Oral Capsule [facility] ([facility]) Nitroglycerin 0.4 MG Sublingual Tablet [facility] ([facility]) Lisinopril 20 MG Oral Tablet [facility] ([facility]) Levothyroxine Sodium 0.2 MG Oral Tablet [facility] ([facility]) Levothyroxine Sodium 0.175 MG Oral Tablet [facility] ([facility]) Acetaminophen 325 MG / Hydrocodone Bitartrate 5 MG Oral Tablet [facility] ([facility]) clopidogrel 75 MG Oral Tablet [facility] ([facility]) Clindamycin 300 MG Oral Capsule [facility] ([facility]) chlorhexidine gluconate 1.2 MG/ML Mouthwash [facility] ([facility]) atorvastatin 80 MG Oral Tablet [facility] ([facility]) Amoxicillin 500 MG Oral Capsule [facility] ([facility]) Omeprazole 20 MG Delayed Release Oral Capsule [facility] ([facility]) Nitroglycerin 0.4 MG Sublingual Tablet [facility] ([facility]) Lisinopril 20 MG Oral Tablet [facility] ([facility]) Levothyroxine Sodium 0.2 MG Oral Tablet [facility] ([facility]) Levothyroxine Sodium 0.175 MG Oral Tablet [facility] ([facility])
[2021-07-13] MEDS ORDERED: propofoL 500 MG/50 ML VIAL As Ordered ONE (12:38)
[2021-07-13] MEDS ORDERED: LIDOCAINE 2% 100MG/5ML SDV (FOR ANES.) As Ordered ONE (12:38)
[2021-07-13] MEDS ORDERED: fentaNYL 100 MCG/2 ML INJECTION (J3010) As Ordered ONE (12:39)
[2021-07-13] MEDS ORDERED: SERT-141 PO (12:44)
[2021-07-13] MEDS ORDERED: GABA600T4 PO (12:44)
--- NOTE | 2021-07-13 14:18 | ROOR ---
Patient Name: Rosetta Cruz Procedure Date: 07/13/2021 2:03 PM Date of : 1970 Age: 50 Room: [facility] Gender: Female Note Status: Finalized Procedure: Upper GI endoscopy Indications: Dyspepsia, Nausea Providers: Trevon Lemus MD Referring MD: Ree Arteaga NP Requesting Provider: Medicines: Monitored Anesthesia Care Complications: No immediate complications. Procedure: Pre-Anesthesia Assessment: - The heart rate, respiratory rate, oxygen saturations, blood pressure, adequacy of pulmonary ventilation, and response to care were monitored throughout the procedure. The Endoscope was introduced through the mouth, and advanced to the second part of duodenum. The upper GI endoscopy was accomplished without difficulty. The patient tolerated the procedure well. Findings: The examined esophagus was normal. Scattered mild inflammation characterized by erosions and erythema was found in the gastric antrum. Mucosa was biopsied with a cold forceps for histology. The exam of the stomach was otherwise normal. The examined duodenum was normal. Impression: - Normal esophagus. - Gastritis. Biopsied. - Normal examined duodenum. Recommendation: - If applicable please reduce ibuprofen, naproxen, or other non-steroidal anti-inflammatory drugs. (use tylenol instead) - Observe patient's clinical course. Procedure Code(s): --- Professional --- 62218, Esophagogastroduodenoscopy, flexible, transoral; with biopsy, single or multiple Diagnosis Code(s): --- Professional --- R11.0, Nausea R10.13, Epigastric pain K29.70, Gastritis, unspecified, without bleeding CPT copyright 2019 [employer]. All rights reserved. The codes documented in this report are preliminary and upon surgical forceps fabricator review may be revised to meet current compliance requirements. Trevon Lemus MD Trevon Lemus MD 07/13/2021 2:18:27 PM Electronically signed by Trevon Lemus MD Number of Addenda: 0 Note Initiated On: 07/13/2021 2:03 PM Estimated Blood Loss: Estimated blood loss: none.
--- NOTE | 2021-07-13 14:35 | ROOR ---
Patient Name: Rosetta Cruz Procedure Date: 07/13/2021 2:04 PM Date of : 1970 Age: 50 Room: [facility] Gender: Female Note Status: Finalized Procedure: Colonoscopy Indications: Generalized abdominal pain, Change in bowel habits Providers: Trevon Lemus MD Referring MD: Ree Arteaga NP Requesting Provider: Medicines: Monitored Anesthesia Care Complications: No immediate complications. Procedure: Pre-Anesthesia Assessment: - The heart rate, respiratory rate, oxygen saturations, blood pressure, adequacy of pulmonary ventilation, and response to care were monitored throughout the procedure. The Colonoscope was introduced through the anus and advanced to 10 cm into the ileum. The colonoscopy was performed without difficulty. The patient tolerated the procedure well. The quality of the bowel preparation was adequate. Findings: The perianal and digital rectal examinations were normal. Small Internal Hemorrhoids. The entire examined colon appeared normal on direct and retroflexion views. The terminal ileum appeared normal. Biopsies for histology were taken with a cold forceps from the entire colon for evaluation of microscopic colitis. Impression: - Small Internal Hemorrhoids. - The entire examined colon is normal on direct and retroflexion views. - The examined portion of the ileum was normal. - Biopsies were taken with a cold forceps from the entire colon for evaluation of microscopic colitis. - (Irritable Bowel Syndrome/IBS suspected.) Recommendation: - Use fiber, for example Citrucel, Fibercon, Konsyl or Metamucil. - Lactose free diet. - Return to my office in 1 month. (to discuss/manage possible liver disease/early Cirrhosis related to fatty liver/SHAH) Procedure Code(s): --- Professional --- 08879, Colonoscopy, flexible; with biopsy, single or multiple Diagnosis Code(s): --- Professional --- R19.4, Change in bowel habit R10.84, Generalized abdominal pain CPT copyright 2019 [employer]. All rights reserved. The codes documented in this report are preliminary and upon line maintainer review may be revised to meet current compliance requirements. Trevon Lemus MD Trevon Lemus MD 07/13/2021 2:35:17 PM Electronically signed by Trevon Lemus MD Number of Addenda: 0 Note Initiated On: 07/13/2021 2:04 PM Estimated Blood Loss: Estimated blood loss: none.
[2021-07-13 14:50] VITALS: BP 136/92
== END 2021-07-13 15:11 | disposition home or self-care (01) ==
LOC: M OPP 11:34
PROVIDERS: ATTEND Internal Medicine Gastroenterology
DX: K52.832 Lymphocytic colitis (principal); K64.8 Other hemorrhoids; R10.84 Generalized abdominal pain; R19.4 Change in bowel habit; K29.70 Gastritis, unspecified, without bleeding; K31.89 Other diseases of stomach and duodenum; R11.0 Nausea; R10.13 Epigastric pain; Z79.82 Long term (current) use of aspirin; Z79.899 Other long term (current) drug therapy
CPT/HCPCS: 43239; 45380; 88305; J3010

== ENCOUNTER → 2021-08-31 | Outpatient (CLI) | payer OTHER ==
[~2021-08-31] MED LIST changes: +GABA600T4 PO; +LIDOCAINE 1% MDV 20ML VIAL As Ordered ONE; -NS 1,000 ML IV ONE; +SERT-141 PO
[2021-08-31 12:19] LABS: HEMATOCRIT 38.6 % (36.0-47.0); HEMOGLOBIN 12.3 g/dl (12.0-15.5); MEAN CORPUSCULAR HEMOGLOBIN 29.9 pg (27.0-33.0); MEAN CORPUSCULAR HGB CONC 31.9 g/dl (32.0-36.5); MEAN CORPUSCULAR VOLUME 93.7 fl (80.0-96.0); PLATELET COUNT, AUTOMATED 267 10^3/uL (150-450); RED BLOOD COUNT 4.12 10^6/uL (4.00-5.40); WHITE BLOOD COUNT 8.5 10^3/uL (4.0-10.0)
[2021-08-31 12:31] LABS: INR 0.97; PROTHROMBIN TIME 13.3 SECONDS (12.7-14.5)
[2021-08-31 12:32] LABS: PARTIAL THROMBOPLASTIN TIME 27.4 SECONDS (25.9-37.0)
[2021-08-31 14:55] VITALS: BP 133/79
--- NOTE | 2021-09-01 18:12 | REP ---
INDICATION: BIOPSY. COMPARISON: None. TECHNIQUE: The procedure was performed by DANNIE Mclain, under the direct supervision of Dr. Lau. The risks and benefits of the procedure were explained to the patient and an informed consent was obtained both verbally and written. Directly prior to the start of the procedure a formal time-out was completed in the procedure room. FINDINGS: Using ultrasound guidance the left lobe of the liver was localized. The skin was prepped and draped in a sterile fashion. Ten mL of 1% lidocaine was used as a local anesthetic. Using ultrasound guidance a 17/18 gauge coaxial needle biopsy system was inserted and advanced into the left lobe of the liver. Four core biopsy specimens were obtained and sent to pathology for further analysis. The patient tolerated the procedure well and there were no immediate complications. After the appropriate amount of monitored convalescence the patient was discharged from the department. IMPRESSION: 1. Ultrasound-guided left lobe liver biopsy. <Electronically signed by Gaby Estrada > 09/01/21 0819 <Electronically signed by Stone Lau > 09/01/21 1801
== END ==
LOC: M IRPRO 11:45
PROVIDERS: ATTEND Internal Medicine Gastroenterology
DX: K76.0 Fatty (change of) liver, not elsewhere classified (principal); K74.00 Hepatic fibrosis, unspecified

== ENCOUNTER → 2021-08-31 | Outpatient (CLI) | payer OTHER ==
[~2021-08-31] MED LIST changes: -LIDOCAINE 1% MDV 20ML VIAL As Ordered ONE
--- NOTE | 2021-08-31 09:08 | REP ---
INDICATION: ABN FIND ON DX IMAG OF LIVER/BILIA US 1ST THEN BX COMPARISON: 02/11/2021 TECHNIQUE: Real time montiel scale ultrasound examination using curved array transducer. FINDINGS: Liver demonstrates coarsened echotexture and poor through transmission suggesting fatty infiltration. No focal hepatic lesion identified. Pancreas is incompletely evaluated due to interposed bowel gas. The gallbladder is partially contracted without gallstones, wall thickening, or pericholecystic fluid. No biliary ductal dilatation is appreciated and the common bile duct measures 5.3 mm diameter. Right kidney is normal in reniform shape without hydronephrosis and measures 10.4 x 5.0 x 4.4 cm. No ascites in the visualized right upper quadrant. Visualized abdominal aorta appears normal. IMPRESSION: Hepatosteatosis/hepatocellular disease. No focal hepatic lesion identified. <Electronically signed by Dread Lopez > 08/31/21 0932
== END ==
LOC: M RAD 08:28
PROVIDERS: ATTEND Internal Medicine Gastroenterology
DX: K76.0 Fatty (change of) liver, not elsewhere classified (principal); R93.2 Abnormal findings on diagnostic imaging of liver and biliary tract

== ENCOUNTER 2021-09-24 12:44 | Emergency (ER) | payer OTHER, SELFPAY ==
[~2021-09-24] VITALS: Ht 172.7 cm; Wt 100.9 kg
[2021-09-24 12:45] VITALS: BP 146/90
== END 2021-09-24 15:40 | disposition left against medical advice (07) ==
LOC: M ED 12:44
DX: Z53.21 Procedure and treatment not carried out due to patient leaving prior to being seen by health care provider (principal)

== ENCOUNTER 2022-11-30 17:47 | Emergency (ER) | payer OTHER ==
[~2022-11-30] VITALS: Ht 170.2 cm; Wt 121.8 kg
[2022-11-30 18:35] LABS: BASO # 0.1 10^3/uL (0.0-0.2); BASO % 0.9 % (0.0-1.0); EOS % 0.4 % (0.0-3.0); HEMATOCRIT 41.2 % (36.0-47.0); HEMOGLOBIN 13.4 g/dl (12.0-15.5); LYMPH # 1.2 10^3/uL (1.5-5.0); LYMPH % 17.6 % (24.0-44.0); MEAN CORPUSCULAR HEMOGLOBIN 30.7 pg (27.0-33.0); MEAN CORPUSCULAR HGB CONC 32.5 g/dl (32.0-36.5); MEAN CORPUSCULAR VOLUME 94.5 fl (80.0-96.0); MONO # 0.5 10^3/uL (0.0-0.8); MONO % 7.5 % (2.0-8.0); NEUTROPHILS % 73.2 % (36.0-66.0); PLATELET COUNT, AUTOMATED 230 10^3/uL (150-450); RED BLOOD COUNT 4.36 10^6/uL (4.00-5.40); WHITE BLOOD COUNT 6.8 10^3/uL (4.0-10.0)
[2022-11-30 18:55] LABS: ERYTHROCYTE SEDIMENTATION RATE 62 mm/hr (0-30)
[2022-11-30 19:02] LABS: C REACTIVE PROTEIN QUANTITATIV 1.1 MG/DL (<1.0)
[2022-11-30 19:03] LABS: CALCIUM LEVEL 8.7 MG/DL (8.5-10.1); CREATININE FOR GFR 1.05 MG/DL (0.55-1.30); GLOMERULAR FILTRATION RATE 59.1 (>51); POTASSIUM SERUM 4.2 MMOL/L (3.5-5.1)
[2022-11-30] MEDS ORDERED: FUROSEMIDE 20 MG TAB PO STA (19:47)
[2022-11-30 22:19] VITALS: BP 148/90
[2022-11-30] MEDS ORDERED: DOXY-443 PO (22:23)
== END 2022-11-30 22:42 | disposition home or self-care (01) ==
LOC: M ED 17:47
DX: L03.116 Cellulitis of left lower limb (principal); R60.9 Edema, unspecified; I25.2 Old myocardial infarction; I10 Essential (primary) hypertension; E78.5 Hyperlipidemia, unspecified; K21.9 Gastro-esophageal reflux disease without esophagitis; Z79.82 Long term (current) use of aspirin; Z79.02 Long term (current) use of antithrombotics/antiplatelets; Z79.891 Long term (current) use of opiate analgesic; Z79.899 Other long term (current) drug therapy

== ENCOUNTER → 2023-01-24 | Outpatient (REF) | payer OTHER ==
[~2023-01-24] MED LIST changes: +DOXY-443 PO
[2023-01-24 13:05] LABS: BASO # 0.1 10^3/uL (0.0-0.2); BASO % 1.4 % (0.0-1.0); EOS # 0.1 10^3/uL (0.0-0.5); HEMATOCRIT 39.4 % (36.0-47.0); HEMOGLOBIN 12.2 g/dl (12.0-15.5); LYMPH # 1.6 10^3/uL (1.5-5.0); MEAN CORPUSCULAR HEMOGLOBIN 29.8 pg (27.0-33.0); MEAN CORPUSCULAR VOLUME 96.1 fl (80.0-96.0); MONO # 0.5 10^3/uL (0.0-0.8); MONO % 8.3 % (2.0-8.0); NEUTROPHILS # 3.6 10^3/uL (1.5-8.5); PLATELET COUNT, AUTOMATED 263 10^3/uL (150-450); WHITE BLOOD COUNT 5.8 10^3/uL (4.0-10.0)
[2023-01-24 13:10] LABS: ALBUMIN 3.5 G/DL (3.2-5.2); ALKALINE PHOSPHATASE 103 U/L (46-116); ALT/SGPT 21 U/L (7.0-40); AST/SGOT 19 U/L (<34); BILIRUBIN,TOTAL 0.3 MG/DL (0.3-1.2); BLOOD UREA NITROGEN 15 MG/DL (9-23); CALCIUM LEVEL 8.7 MG/DL (8.5-10.1); CARBON DIOXIDE LEVEL 30 MMOL/L (20-31); CHLORIDE LEVEL 107 MMOL/L (98-107); CHOLESTEROL LEVEL 235 MG/DL (<200); CREATININE FOR GFR 0.75 MG/DL (0.55-1.30); GLOMERULAR FILTRATION RATE > 60.0 (>51); GLUCOSE, FASTING 83 MG/DL (60-100); HDL CHOLESTEROL 41.9 MG/DL (>40); LDL CHOLESTEROL 153.9 MG/DL (<100); MAGNESIUM LEVEL 1.8 MG/DL (1.8-2.4); NON-HDL-C 193.1 MG/DL; POTASSIUM SERUM 4.5 MMOL/L (3.5-5.1); SODIUM LEVEL 140 MMOL/L (136-145); THYROID STIMULATING HORMONE 4.266 uIU/ML (0.55-4.78); TOTAL 25(OH) VITAMIN D 12.5 NG/ML (20.0-100.0); TOTAL PROTEIN 6.9 G/DL (5.7-8.2); TRIGLYCERIDES LEVEL 196 MG/DL (<150)
[2023-01-24 13:27] LABS: HEMOGLOBIN A1c 5.3 % (4.0-6.0)
== END ==
LOC: M LAB REF 12:03
PROVIDERS: ATTEND Nurse Practitioner Family
DX: Z13.228 Encounter for screening for other metabolic disorders (principal)

== ENCOUNTER → 2024-07-18 | Outpatient (REF) | payer OTHER ==
[~2024-07-18] MED LIST changes: +DOXY-441 PO; -DOXY-443 PO; +GABA-1490 PO; -GABA600T4 PO
[2024-07-18 18:05] LABS: BASO # 0.1 10^3/uL (0.0-0.2); BASO % 1.4 % (0.0-1.0); EOS # 0.1 10^3/uL (0.0-0.5); EOS % 0.8 % (0.0-3.0); HEMATOCRIT 36.7 % (36.0-47.0); HEMOGLOBIN 11.8 g/dl (12.0-15.5); LYMPH # 1.8 10^3/uL (1.5-5.0); LYMPH % 27.2 % (24.0-44.0); MEAN CORPUSCULAR HEMOGLOBIN 30.8 pg (27.0-33.0); MEAN CORPUSCULAR HGB CONC 32.2 g/dl (32.0-36.5); MEAN CORPUSCULAR VOLUME 95.8 fl (80.0-96.0); MONO # 0.6 10^3/uL (0.0-0.8); MONO % 8.4 % (2.0-8.0); NEUTROPHILS % 61.7 % (36.0-66.0); PLATELET COUNT, AUTOMATED 231 10^3/uL (150-450); RED BLOOD COUNT 3.83 10^6/uL (4.00-5.40); WHITE BLOOD COUNT 6.5 10^3/uL (4.0-10.0)
[2024-07-18 18:13] LABS: ALBUMIN 3.7 G/DL (3.2-5.2); ALKALINE PHOSPHATASE 150 U/L (46-116); ALT/SGPT 25 U/L (7.0-40); AST/SGOT 17 U/L (<34); BILIRUBIN,TOTAL 0.3 MG/DL (0.3-1.2); BLOOD UREA NITROGEN 17 MG/DL (9-23); CALCIUM LEVEL 9.6 MG/DL (8.5-10.1); CARBON DIOXIDE LEVEL 29 MMOL/L (20-31); CHLORIDE LEVEL 110 MMOL/L (98-107); CHOLESTEROL LEVEL 260 MG/DL (<200); CHOLESTEROL RISK RATIO 8.46 (<5); CREATININE FOR GFR 0.89 MG/DL (0.55-1.30); GLOMERULAR FILTRATION RATE > 60.0 (>51); GLUCOSE, FASTING 99 MG/DL (60-100); HDL CHOLESTEROL 30.7 MG/DL (>40); LDL CHOLESTEROL 190.7 MG/DL (<100); NON-HDL-C 229.3 MG/DL; POTASSIUM SERUM 4.2 MMOL/L (3.5-5.1); SODIUM LEVEL 142 MMOL/L (136-145); TOTAL PROTEIN 7.5 G/DL (5.7-8.2); TRIGLYCERIDES LEVEL 193 MG/DL (<150)
[2024-07-18 18:15] LABS: TOTAL 25(OH) VITAMIN D 22.2 NG/ML (20.0-100.0)
[2024-07-18 19:25] LABS: HEMOGLOBIN A1c 5.4 % (4.0-6.0)
== END ==
LOC: M LAB REF 17:22
PROVIDERS: ATTEND Nurse Practitioner Family
DX: E66.01 Morbid (severe) obesity due to excess calories (principal); E55.9 Vitamin D deficiency, unspecified

== ENCOUNTER 2024-10-11 10:18 | Emergency (ER) | payer OTHER ==
[~2024-10-11] VITALS: Ht 170.2 cm; Wt 124.1 kg
[2024-10-11 12:10] LABS: BASO # 0.1 10^3/uL (0.0-0.2); BASO % 1.4 % (0.0-1.0); EOS # 0.1 10^3/uL (0.0-0.5); HEMATOCRIT 41.3 % (36.0-47.0); LYMPH # 1.5 10^3/uL (1.5-5.0); MEAN CORPUSCULAR HEMOGLOBIN 29.2 pg (27.0-33.0); MEAN CORPUSCULAR HGB CONC 31.5 g/dl (32.0-36.5); MEAN CORPUSCULAR VOLUME 92.8 fl (80.0-96.0); MONO # 0.5 10^3/uL (0.0-0.8); MONO % 6.2 % (2.0-8.0); NEUTROPHILS # 5.8 10^3/uL (1.5-8.5); PLATELET COUNT, AUTOMATED 271 10^3/uL (150-450); RED BLOOD COUNT 4.45 10^6/uL (4.00-5.40)
[2024-10-11 12:26] LABS: INR 0.88; PARTIAL THROMBOPLASTIN TIME 26.6 SECONDS (24.8-34.2); PROTHROMBIN TIME 12.2 SECONDS (12.5-14.5)
[2024-10-11 12:38] LABS: LIPASE 42 U/L (12-53)
[2024-10-11 12:40] LABS: ALBUMIN 3.5 G/DL (3.2-5.2); ALKALINE PHOSPHATASE 123 U/L (35-104); ALT/SGPT 20 U/L (7.0-40); AST/SGOT 17 U/L (<34); BILIRUBIN,DIRECT < 0.1 MG/DL (<0.4); BILIRUBIN,TOTAL 0.2 MG/DL (0.3-1.2); BLOOD UREA NITROGEN 15 MG/DL (9-23); CALCIUM LEVEL 8.8 MG/DL (8.5-10.1); CARBON DIOXIDE LEVEL 27 MMOL/L (20-31); CHLORIDE LEVEL 107 MMOL/L (98-107); CK-MB VALUE MASS 1.7 NG/ML (<3.6); CPK CREATINE PHOSPHOKINASE 87 U/L (34-145); CREATININE FOR GFR 0.75 MG/DL (0.55-1.30); GLOMERULAR FILTRATION RATE > 60.0 (>51); GLUCOSE, FASTING 106 MG/DL (60-100); MB/CK RELATIVE INDEX 1.95 (< OR =4); POTASSIUM SERUM 4.2 MMOL/L (3.5-5.1); SODIUM LEVEL 142 MMOL/L (136-145); TOTAL PROTEIN 7.3 G/DL (5.7-8.2)
[2024-10-11 12:43] LABS: FREE T4 0.72 NG/DL (0.89-1.76)
[2024-10-11 12:44] LABS: THYROID STIMULATING HORMONE 30.494 uIU/ML (0.55-4.78)
[2024-10-11 13:03] VITALS: BP 189/109
[2024-10-11] MEDS: hydrALAZINE 20MG/ML 1ML VIAL IV ONE (13:03)
[2024-10-11] MEDS: NITROGLYCERIN 2% OINT 1 GM *U/D* PKT TOP ONE (13:12)
[2024-10-11 13:43] LABS: CK-MB VALUE MASS 1.4 NG/ML (<3.6)
[2024-10-11 13:47] LABS: MB/CK RELATIVE INDEX 1.72 (< OR =4)
[2024-10-11] MEDS: ASPIRIN 81MG CHEW TABLET PO ONE (13:51)
[2024-10-11] MEDS: HEPARIN SOD (PORCINE) 5000UNITS/ML 1ML VIAL/SYRINGE IV ONE (13:56)
[2024-10-11] MEDS: HEPARIN DRIP 25,000 UNITS in IV 1 EA IV SCH (13:56)
[2024-10-11] MEDS: NITROGLYCERIN/D5W 100MCG/ML 25 MG in IV 1 EA IV SCH (14:22)
[2024-10-11 14:50] VITALS: BP 184/94; TEMP 97; O2SAT 97
== END 2024-10-11 14:54 | disposition short-term general hospital (02) ==
LOC: M ED 10:18
DX: I21.4 Non-ST elevation (NSTEMI) myocardial infarction (principal); I10 Essential (primary) hypertension; E78.5 Hyperlipidemia, unspecified; K21.9 Gastro-esophageal reflux disease without esophagitis; E66.9 Obesity, unspecified; F10.10 Alcohol abuse, uncomplicated; Z86.79 Personal history of other diseases of the circulatory system; Z87.891 Personal history of nicotine dependence; Z79.82 Long term (current) use of aspirin; Z79.52 Long term (current) use of systemic steroids; Z79.899 Other long term (current) drug therapy; Z79.02 Long term (current) use of antithrombotics/antiplatelets
CPT/HCPCS: 71045; 80048; 80076; 82550; 82553; 83690; 84439; 84443; 84484; 85025; 85610; 85730; 93005; 93041; 94760; 96365; 96366; 96375; 99285; J0360; J2305

== ENCOUNTER → 2024-11-14 | Outpatient (REF) | payer SELFPAY | LOC: M LAB REF 11:59 | PROVIDERS: ATTEND Nurse Practitioner Family | DX: R39.9 Unspecified symptoms and signs involving the genitourinary system (principal) ==

== ENCOUNTER → 2024-11-28 | Outpatient (REF) | payer OTHER ==
[2024-11-28 14:18] LABS: THYROID STIMULATING HORMONE 1.072 uIU/ML (0.55-4.78)
[2024-11-28 14:19] LABS: ALBUMIN 3.5 G/DL (3.2-5.2); ALKALINE PHOSPHATASE 123 U/L (35-104); ALT/SGPT 35 U/L (7.0-40); AST/SGOT 19 U/L (<34); BILIRUBIN,TOTAL 0.5 MG/DL (0.3-1.2); BLOOD UREA NITROGEN 10 MG/DL (9-23); CALCIUM LEVEL 9.6 MG/DL (8.5-10.1); CARBON DIOXIDE LEVEL 28 MMOL/L (20-31); CHLORIDE LEVEL 104 MMOL/L (98-107); CHOLESTEROL LEVEL 167 MG/DL (<200); CHOLESTEROL RISK RATIO 5.23 (<5); CREATININE FOR GFR 0.82 MG/DL (0.55-1.30); GLOMERULAR FILTRATION RATE > 60.0 (>51); GLUCOSE, FASTING 91 MG/DL (60-100); HDL CHOLESTEROL 31.9 MG/DL (>40); LDL CHOLESTEROL 97.5 MG/DL (<100); MAGNESIUM LEVEL 1.7 MG/DL (1.8-2.4); NON-HDL-C 135.1 MG/DL; POTASSIUM SERUM 4.7 MMOL/L (3.5-5.1); SODIUM LEVEL 142 MMOL/L (136-145); TOTAL PROTEIN 7.3 G/DL (5.7-8.2); TRIGLYCERIDES LEVEL 188 MG/DL (<150)
[2024-11-28 14:20] LABS: FREE T4 1.38 NG/DL (0.89-1.76)
[2024-11-28 14:21] LABS: BASO # 0.1 10^3/uL (0.0-0.2); BASO % 1.2 % (0.0-1.0); EOS # 0.1 10^3/uL (0.0-0.5); EOS % 1.1 % (0.0-3.0); HEMATOCRIT 40.1 % (36.0-47.0); HEMOGLOBIN 12.6 g/dl (12.0-15.5); LYMPH # 1.5 10^3/uL (1.5-5.0); LYMPH % 22.4 % (24.0-44.0); MEAN CORPUSCULAR HGB CONC 31.4 g/dl (32.0-36.5); MEAN CORPUSCULAR VOLUME 92.2 fl (80.0-96.0); MONO # 0.5 10^3/uL (0.0-0.8); MONO % 7.6 % (2.0-8.0); NEUTROPHILS # 4.3 10^3/uL (1.5-8.5); NEUTROPHILS % 67.2 % (36.0-66.0); PLATELET COUNT, AUTOMATED 345 10^3/uL (150-450); RED BLOOD COUNT 4.35 10^6/uL (4.00-5.40); WHITE BLOOD COUNT 6.5 10^3/uL (4.0-10.0)
[2024-11-28 15:10] LABS: HEMOGLOBIN A1c 5.4 % (4.0-6.0)
== END ==
LOC: M LAB REF 13:09
PROVIDERS: ATTEND Nurse Practitioner Family
DX: E78.2 Mixed hyperlipidemia (principal); E66.01 Morbid (severe) obesity due to excess calories; E03.9 Hypothyroidism, unspecified

== ENCOUNTER → 2025-09-11 | Outpatient (REF) ==
[~2025-09-11] MED LIST changes: -IBUP-1022 PO; +IBUP600T42 PO
== END ==
LOC: M EMP 15:44
PROVIDERS: ATTEND Family Medicine
DX: Z01.89 Encounter for other specified special examinations (principal)